=== PATIENT | female | born 1960 | race Caucasian/White ===

== ENCOUNTER → 2018-03-10 11:48 | Outpatient (CLI) | payer OTHER, SELFPAY | PROVIDERS: Family Provider Family Medicine; PCP Family Medicine; Visit Provider Family Medicine | DX: Z01.419 Encounter for gynecological examination (general) (routine) without abnormal findings (principal) ==

== ENCOUNTER → 2018-03-11 09:08 | Outpatient (CLI) | payer OTHER, SELFPAY ==
[2018-03-11 11:43] LABS: Anion Gap 10 (5-15); BUN 18 mg/dL (7-18); BUN/Creat Ratio 18.5 RATIO (10-20); Calcium,Total 9.6 mg/dL (8.5-10.1); Chloride 109 mmol/L (98-107); Cholesterol 182 mg/dL (200); Creatinine, Serum 0.97 mg/dL (0.55-1.02); EST Glomerular Filtration Rate 62 mL/min (>60); Est Glom Filt Rate - Afr Amer 75 mL/min (>60); Glucose 92 mg/dL (74-106); High Density Lipoprotein 74 mg/dL; Potassium 4.4 mmol/L (3.5-5.1); Sodium Level 143 mmol/L (136-145); Triglycerides 85 mg/dL; Very Low Density Lipoprotein 17 mg/dL (5-40)
[2018-03-16 11:26] LABS: HPV Reflexed? NOT INDICATED
== END ==
PROVIDERS: Family Provider Family Medicine; PCP Family Medicine; Visit Provider Family Medicine
DX: I10 Essential (primary) hypertension (principal); E78.00 Pure hypercholesterolemia, unspecified; Z12.4 Encounter for screening for malignant neoplasm of cervix
CPT/HCPCS: 36415; 80048; 80061; 88175; G0145

== ENCOUNTER → 2018-03-31 08:28 | Outpatient (CLI) | payer OTHER, SELFPAY | PROVIDERS: Family Provider Family Medicine; PCP Family Medicine; Visit Provider Family Medicine | DX: Z12.31 Encounter for screening mammogram for malignant neoplasm of breast (principal) | CPT/HCPCS: 77063; 77067 ==

== ENCOUNTER → 2019-03-13 07:07 | Outpatient (CLI) | payer OTHER, SELFPAY ==
[2019-03-13 11:27] LABS: Anion Gap 7 (5-15); BUN 20 mg/dL (7-18); BUN/Creat Ratio 23.7 RATIO (10-20); Calcium,Total 9.4 mg/dL (8.5-10.1); Chloride 110 mmol/L (98-107); Cholesterol 175 mg/dL (200); Creatinine, Serum 0.84 mg/dL (0.55-1.02); EST Glomerular Filtration Rate 73 mL/min (>60); Est Glom Filt Rate - Afr Amer 88 mL/min (>60); Glucose 82 mg/dL (74-106); High Density Lipoprotein 69 mg/dL; Potassium 4.1 mmol/L (3.5-5.1); Sodium Level 141 mmol/L (136-145); Triglycerides 93 mg/dL; Very Low Density Lipoprotein 19 mg/dL (5-40)
== END ==
PROVIDERS: Family Provider Family Medicine; PCP Family Medicine; Referring Provider Family Medicine; Visit Provider Family Medicine
DX: I10 Essential (primary) hypertension (principal); E78.00 Pure hypercholesterolemia, unspecified
CPT/HCPCS: 36415; 80048; 80061

== ENCOUNTER → 2019-05-18 06:44 | Outpatient (CLI) | payer OTHER, SELFPAY ==
[2019-05-04 14:20] VITALS: BMI 28.4
--- NOTE | 2019-05-18 09:50 | STRESSREP_ITS ---
Stress Test Report Date: 05-18-19 Procedure: Exercise tolerance test/imaging study Indications: Chest pain: Abnormal cardiac CT/coronary calcium score Consent: Per the patient Procedure: The patient exercised on a Real protocol for 10 minutes completing Stage III and 1 minute of Stage IV achieving a peak heart rate of 176 bpm (110 % predicted maximal heart rate) with a peak blood pressure 164/86 mmHg and a peak MET capacity of 11 METs. The baseline ECG demonstrated normal sinus rhythm. The peak exercise ECG demonstrated no obvious ECG changes. There was an isolated ventricular couplet during exercise. The functional capacity was considered. There was no complaint of chest discomfort during exercise or recovery. The examination was discontinued secondary to shortness of breath. Impression: 1. Technically adequate (percent predicted maximal heart rate greater than 85%) exercise tolerance test 2. Peak exercise ECG with no obvious ECG changes 3. There was an isolated ventricular couplet during exercise 4. Nuclear images pending Myocardial perfusion imaging study: Technique: The patient was injected with 12.0 mCi of technetium 99m Cardiolite and subsequently rest SPECT Cardiolite nuclear imaging was obtained in the horizontal long, vertical long, and short axis views. The patient exercised on a Real protocol for 10 minutes completing Stage III and 1 minute of Stage IV achieving a peak heart rate of 176 bpm (110 % predicted maximal heart rate) with a peak blood pressure 164/86 mmHg and a peak MET capacity of 11 METs. The patient was injected with 36.0 mCi of technetium 99m Cardiolite and subsequently stress SPECT Cardiolite nuclear imaging was obtained in the horizontal long, vertical long, and short axis views. A gated Cardiolite study at peak stress was obtained. Interpretation: Rest and stress SPECT Cardiolite nuclear imaging status post realignment, normalization, and attenuation correction, demonstrates rest the appearance of diminished tracer uptake in portions of the distal anterior and anterior apical segments which status post stress appears to normalize.. There is end systolic thickening and brightening. The gated Cardiolite study demonstrates myocardial thickening and inward wall motion. The reported LVEF is 74 %. Impression: 1. Rest and stress SPECT Cardiolite nuclear imaging demonstrate resting myocardial perfusion changes which appear to normalize status post stress appearing compatible shifting soft tissue attenuation/artifact with no myocardial perfusion changes considered diagnostic for associated stress-induced myocardial ischemia. 2. The gated Cardiolite study reports an LVEF of 74 %. This note was generated with [employer] software. It may contain incorrect words, spelling, and punctuation that were not noted in checking the note before signing.
== END ==
PROVIDERS: Family Provider Family Medicine; PCP Family Medicine; Referring Provider Internal Medicine Cardiovascular Disease; Visit Provider Internal Medicine Cardiovascular Disease
DX: R07.9 Chest pain, unspecified (principal); R93.1 Abnormal findings on diagnostic imaging of heart and coronary circulation
CPT/HCPCS: 78452; 93017; A9500; A4216

== ENCOUNTER → 2019-07-11 07:06 | Outpatient (CLI) | payer OTHER, SELFPAY ==
[2019-05-04 14:20] VITALS: BMI 28.4
[2019-07-11 10:06] LABS: Color, Urine Yellow (Yellow); Glucose, Dipstick Normal (Normal); Ketone-Dipstick Negative (Negative); Leukocyte Esterase-Dipstick 25 /ul (Negative); Nitrite-Dipstick Negative (Negative); Occult Blood-Urine Negative /ul (Negative); Protein-Dipstick Negative (Negative); Specific Gravity, Urine 1.025 (1.002-1.030); Urine Bilirubin Dipstick Negative (Negative); Urine Clarity Clear (Clear); Urine Urobilinogen Normal (Normal)
[2019-07-11 10:17] LABS: Absolute Lymphocyte Count 1.85 X10^3/uL (0.83-4.51); Absolute Neutrophil Count 4.2 X10^3/uL (2.0-7.7); Basophil# 0.03 X10^3/uL; Basophil% 0.4 % (0-1); Eosinophil# 0.19 X10^3/uL; Eosinophils% 2.8 % (0-5); Hematocrit 36.3 % (37-47); Hemoglobin 12.6 g/dL (12.0-15.0); Lymphocyte # 1.85 X10^3/ul (4.0); Lymphocyte % 27.2 % (19-41); Mean Corp Hgb Conc 34.7 g/dL (32-36); Mean Corpuscular Hgb 31.3 pg (27.0-32.0); Mean Corpuscular Volume 90.1 fL (81-99); Mean Platelet Vol. 10.3 fl (6.2-12.0); Monocyte# 0.48 X10^3/uL; NRBC Flagged by Analyzer 0 % (0-5); Neutrophil # 4.24 X10^3/uL (2.7-7.7); Neutrophil % 62.3 % (47-70); Platelet Count 315 K/mm3 (150-450); RBC Distribution Width CV 12.3 % (11.6-14.6); RBC Distribution Width SD 40.1 fl (35.1-43.9); Red Blood Count 4.03 M/mm3 (4.2-5.4); White Blood Count 6.8 K/mm3 (4.4-11.0)
[2019-07-11 10:27] LABS: Red Blood Cells-Urine 0-5 SEEN /hpf (0-5); Squamous Epithelial Cells - UA 0-5 SEEN /hpf (5-10); White Blood Cells 0-5 SEEN /hpf (0-5)
[2019-07-11 10:28] LABS: Bacteria RARE /hpf (None Seen); Mucous, Urine 1+ /hpf (<or=2+)
[2019-07-11 10:52] LABS: AST(SGOT) 20 U/L (15-37); Alanine Aminotransfer ALT/SGPT 26 U/L (13-56); Albumin, Serum 3.7 g/dL (3.2-5.0); Alkaline Phosphatase 74 U/L (45-117); Anion Gap 5 (5-15); BUN 17 mg/dL (7-18); BUN/Creat Ratio 18.3 RATIO (10-20); Calcium,Total 9.2 mg/dL (8.5-10.1); Chloride 111 mmol/L (98-107); Cholesterol 163 mg/dL (200); Creatinine, Serum 0.93 mg/dL (0.55-1.02); EST Glomerular Filtration Rate 65 mL/min (>60); Est Glom Filt Rate - Afr Amer 79 mL/min (>60); Globulin 3.6 g/dL (2.2-4.2); Glucose 85 mg/dL (74-106); High Density Lipoprotein 63 mg/dL; Potassium 3.9 mmol/L (3.5-5.1); Protein, Total 7.3 g/dL (6.4-8.2); Sodium Level 142 mmol/L (136-145); Thyroid Stim Hormone (TSH) 2.27 uIU/mL (0.358-3.74); Triglycerides 122 mg/dL; Very Low Density Lipoprotein 24 mg/dL (5-40)
== END ==
PROVIDERS: Family Provider Family Medicine; PCP Family Medicine; Referring Provider Family Medicine; Visit Provider Family Medicine
DX: Z00.00 Encounter for general adult medical examination without abnormal findings (principal)
CPT/HCPCS: 36415; 80053; 80061; 81001; 84443; 85025

== ENCOUNTER → 2019-07-18 14:52 | Outpatient (CLI) | payer OTHER, SELFPAY ==
[2019-05-04 14:20] VITALS: BMI 28.4
--- NOTE | 2019-07-18 14:54 | US_ITS ---
STUDY: THYROID ULTRASOUND REASON FOR EXAM: Female, 59 years old. Possible right thyroid nodule TECHNIQUE: Ultrasound evaluation of the thyroid was performed with real-time and static esquivel-scale imaging. COMPARISON: None. FINDINGS: RIGHT LOBE: The right lobe of the thyroid gland measures 5 x 2.2 x 1.2 cm. There is a heterogeneous echotexture. Multiple tiny complex nodules with irregular margins and shilpa nodular vascularity the largest measuring 3 x 2 x 2 mm. LEFT LOBE: Not visualized status post lobectomy ISTHMUS: The isthmus measures 1 mm . There is a mildly enlarged right. Thyroidal lymph node measuring 1.1 x 0.7 cm and 2 mildly enlarged lymph nodes on the left measuring 1.4 x 2.6 x 0.3 cm and 1.2 x 0.9 x 0.3 cm US/Thyroid IMPRESSION: Status post left thyroidectomy. Enlarged right lobe of thyroid demonstrating multiple tiny subcentimeter nodules the largest measuring 3 x 2 x 2 mm of uncertain significance. Incidental finding of mild bilateral perithyroidal adenopathy of indeterminate significance however if patient has history of prior thyroid cancer sonographic guided biopsy or PET scan may be helpful for further evaluation Electronically Signed: Nilo Walsh MD at 20:31 EST , Service support ,
== END ==
PROVIDERS: Family Provider Family Medicine; PCP Family Medicine; Referring Provider Family Medicine; Visit Provider Family Medicine
DX: E04.1 Nontoxic single thyroid nodule (principal)
CPT/HCPCS: 76536

== ENCOUNTER → 2019-07-26 15:28 | Outpatient (CLI) | payer OTHER, SELFPAY ==
[2019-05-04 14:20] VITALS: BMI 28.4
--- NOTE | 2019-07-26 15:30 | BI_ITS ---
MAMMOGRAPHY - BILATERAL SCREENING REASON FOR EXAM: Female, 59 years old. Routine annual screening examination. PERTINENT HISTORY: Non-contributory. TECHNIQUE: Digital bilateral breast bc (3D mammographic acquisition) in the CC and MLO projections. 2-D mediolateral oblique (MLO) and craniocaudad (CC) views of both breasts were obtained. CAD: Full Field Digital Mammography with Computer Added Detection was performed. COMPARISON: Comparison is made with prior study dated March 31, 2018 and March 30, 2016. FINDINGS: Breast Composition: There are scattered areas of fibroglandular density. There are no dominant masses or suspicious calcifications. Stable benign-appearing bilateral axillary lymph nodes. No other significant abnormalities are identified. There has been no significant change since the prior study. BI/SCREEN MAMM (CAD) W/BC BILAT IMPRESSION: Stable bilateral screening mammogram. Yearly follow-up mammogram recommended. (A) ASSESSMENT CATEGORY: BIRADS Category 2: Benign. A letter regarding these results will be sent to the patient by the facility within 30 days. Approximately 10% of breast cancers are not detected by mammography. A normal mammogram should not delay biopsy of a clinically suspicious abnormality. [id number] Electronically Signed: Pool Crandall, at 8:41 EST , Service support ,
== END ==
PROVIDERS: Family Provider Family Medicine; PCP Family Medicine; Referring Provider Family Medicine; Visit Provider Family Medicine
DX: Z12.31 Encounter for screening mammogram for malignant neoplasm of breast (principal)
CPT/HCPCS: 77063; 77067

== ENCOUNTER → 2020-02-09 07:10 | Outpatient (CLI) | payer OTHER, SELFPAY ==
[2019-09-29 08:35] VITALS: BMI 28.4
[2020-02-09 09:52] LABS: Absolute Lymphocyte Count 2.15 X10^3/uL (0.83-4.51); Absolute Neutrophil Count 3.9 X10^3/uL (2.0-7.7); Basophil# 0.04 X10^3/uL; Basophil% 0.6 % (0-1); Eosinophil# 0.15 X10^3/uL; Eosinophils% 2.2 % (0-5); Hematocrit 39.3 % (37-47); Hemoglobin 12.8 g/dL (12.0-15.0); Lymphocyte # 2.15 X10^3/ul (4.0); Lymphocyte % 31.9 % (19-41); Mean Corp Hgb Conc 32.6 g/dL (32-36); Mean Corpuscular Hgb 29.9 pg (27.0-32.0); Mean Corpuscular Volume 91.8 fL (81-99); Mean Platelet Vol. 10.4 fl (6.2-12.0); Monocyte# 0.46 X10^3/uL; Monocyte% 6.8 % (0-10); NRBC Flagged by Analyzer 0 % (0-5); Neutrophil % 57.9 % (47-70); Platelet Count 331 K/mm3 (150-450); RBC Distribution Width CV 12.5 % (11.6-14.6); RBC Distribution Width SD 41.4 fl (35.1-43.9); Red Blood Count 4.28 M/mm3 (4.2-5.4); White Blood Count 6.7 K/mm3 (4.4-11.0)
[2020-02-09 10:14] LABS: ALB/GLOB Ratio 0.9 RATIO (0.9-2.4); AST(SGOT) 22 U/L (15-37); Alanine Aminotransfer ALT/SGPT 27 U/L (13-56); Albumin, Serum 3.7 g/dL (3.2-5.0); Alkaline Phosphatase 76 U/L (45-117); Anion Gap 6 (5-15); BUN 15 mg/dL (7-18); BUN/Creat Ratio 16.3 RATIO (10-20); Calcium,Total 9.1 mg/dL (8.5-10.1); Chloride 109 mmol/L (98-107); Cholesterol 178 mg/dL (200); Creatinine, Serum 0.92 mg/dL (0.55-1.02); EST Glomerular Filtration Rate 66 mL/min (>60); Est Glom Filt Rate - Afr Amer 79 mL/min (>60); Globulin 3.9 g/dL (2.2-4.2); Glucose 90 mg/dL (74-106); High Density Lipoprotein 70 mg/dL; Potassium 4.2 mmol/L (3.5-5.1); Protein, Total 7.6 g/dL (6.4-8.2); Sodium Level 141 mmol/L (136-145); Thyroid Stim Hormone (TSH) 3.59 uIU/mL (0.358-3.74); Triglycerides 86 mg/dL; Very Low Density Lipoprotein 17 mg/dL (5-40)
== END ==
PROVIDERS: PCP Family Medicine; Referring Provider Family Medicine; Visit Provider Family Medicine
DX: I10 Essential (primary) hypertension (principal); E78.00 Pure hypercholesterolemia, unspecified
CPT/HCPCS: 36415; 80053; 80061; 84443; 85025

== ENCOUNTER → 2020-08-27 08:29 | Outpatient (CLI) | payer OTHER, SELFPAY ==
[2020-05-06 09:17] VITALS: BMI 27.2
[2020-08-27 10:12] LABS: Absolute Lymphocyte Count 1.68 X10^3/uL (0.83-4.51); Basophil# 0.03 X10^3/uL; Basophil% 0.5 % (0-1); Eosinophils% 1.6 % (0-5); Hematocrit 38.6 % (37-47); Hemoglobin 12.8 g/dL (12.0-15.0); Lymphocyte # 1.68 X10^3/ul (4.0); Lymphocyte % 27.3 % (19-41); Mean Corp Hgb Conc 33.2 g/dL (32-36); Mean Corpuscular Hgb 29.8 pg (27.0-32.0); Mean Corpuscular Volume 89.8 fL (81-99); Mean Platelet Vol. 10.5 fl (6.2-12.0); Monocyte# 0.38 X10^3/uL; Monocyte% 6.2 % (0-10); NRBC Flagged by Analyzer 0 % (0-5); Neutrophil # 3.96 X10^3/uL (2.7-7.7); Neutrophil % 64.2 % (47-70); Platelet Count 333 K/mm3 (150-450); RBC Distribution Width CV 12.5 % (11.6-14.6); RBC Distribution Width SD 40.8 fl (35.1-43.9); White Blood Count 6.2 K/mm3 (4.4-11.0)
[2020-08-27 10:50] LABS: AST(SGOT) 18 U/L (15-37); Alanine Aminotransfer ALT/SGPT 26 U/L (13-56); Albumin, Serum 3.8 g/dL (3.2-5.0); Alkaline Phosphatase 81 U/L (45-117); Anion Gap 7 (5-15); BUN 17 mg/dL (7-18); BUN/Creat Ratio 17.6 RATIO (10-20); Calcium,Total 9.2 mg/dL (8.5-10.1); Chloride 109 mmol/L (98-107); Cholesterol 174 mg/dL (200); Creatinine, Serum 0.96 mg/dL (0.55-1.02); EST Glomerular Filtration Rate 62 mL/min (>60); Est Glom Filt Rate - Afr Amer 75 mL/min (>60); Globulin 3.7 g/dL (2.2-4.2); Glucose 90 mg/dL (74-106); High Density Lipoprotein 74 mg/dL; Potassium 4.3 mmol/L (3.5-5.1); Protein, Total 7.5 g/dL (6.4-8.2); Sodium Level 140 mmol/L (136-145); Thyroid Stim Hormone (TSH) 1.87 uIU/mL (0.358-3.74); Triglycerides 89 mg/dL; Very Low Density Lipoprotein 18 mg/dL (5-40)
== END ==
PROVIDERS: PCP Family Medicine; Referring Provider Family Medicine; Visit Provider Family Medicine
DX: I10 Essential (primary) hypertension (principal); E78.00 Pure hypercholesterolemia, unspecified
CPT/HCPCS: 36415; 80053; 80061; 84443; 85025

== ENCOUNTER → 2020-09-03 11:18 | Outpatient (CLI) | payer OTHER, SELFPAY ==
[2020-05-06 09:17] VITALS: BMI 27.2
--- NOTE | 2020-09-03 11:22 | US_ITS ---
STUDY: THYROID ULTRASOUND REASON FOR EXAM: Female, 60 years old. Nodule. History of left thyroidectomy. TECHNIQUE: Ultrasound evaluation of the thyroid was performed with real-time and static esquivel-scale imaging. COMPARISON: 07/18/2019. FINDINGS: RIGHT LOBE: The right lobe of the thyroid gland measures 4.9 x 1.8 x 1.4 cm. There is a homogeneous echotexture. There is a 0.5 x 0.5 x 0.3 cm cyst in the anterior mid thyroid. More posteriorly in the lower pole there is a 0.3 x 0.2 x 0.4 cm cyst. Also posteriorly of the lower pole but more lateral there is a 0.4 x 0.3 x 0.4 cm cyst. Normal vascularity on DOPPLER imaging. LEFT LOBE: The left lobe of the thyroid gland is surgically absent. ISTHMUS: The isthmus measures 0.2 . The regional lymph nodes are normal. US/Thyroid IMPRESSION: 1. Full colloid cysts seen in the right thyroid. These are benign findings and require no follow-up. 2. Status post left thyroidectomy. Electronically Signed: Rakesh Mclaughlin DO at 20:46 EST Tel [phone], Service support ,
== END ==
PROVIDERS: PCP Family Medicine; Referring Provider Family Medicine; Visit Provider Family Medicine
DX: E04.2 Nontoxic multinodular goiter (principal)
CPT/HCPCS: 76536

== ENCOUNTER 2020-10-10 16:38 | Outpatient (RCR) | payer OTHER, SELFPAY ==
[2020-05-06 09:17] VITALS: BMI 27.2
== END 2020-10-10 23:59 ==
LOC: IMMUN 16:38
PROVIDERS: PCP Family Medicine; Visit Provider Family Medicine
DX: Z23 Encounter for immunization (principal)
CPT/HCPCS: 0011A; 0012A

== ENCOUNTER → 2021-04-14 11:40 | Outpatient (CLI) | payer OTHER, SELFPAY ==
--- NOTE | 2021-04-14 11:42 | US_ITS ---
INDICATION: possible bakers cyst - LEFT EXAMINATION: Left Lower extremity duplex venous ultrasound. HISTORY: 58-year-old female with left knee pain on movement. TECHNIQUE: Routine and color duplex imaging with spectral analysis. FINDINGS: Grayscale and color flow evaluation of the left popliteal fossa was performed, no evidence of fluid collection is seen, no evidence of masses no evidence of subcutaneous or deep collections. Unremarkable architecture of the underlying muscles. US/Ext Non Vasc Limited/Soft Tiss IMPRESSION: No abnormality detected. Electronically Signed: David Bonds MD at 14:02 EDT Tel , Service support ,
== END ==
PROVIDERS: PCP Family Medicine; Referring Provider Family Medicine; Visit Provider Family Medicine
DX: M25.569 Pain in unspecified knee (principal)
CPT/HCPCS: 76882

== ENCOUNTER → 2021-05-28 13:41 | Outpatient (CLI) | payer OTHER, SELFPAY ==
--- NOTE | 2021-05-28 13:46 | BI_ITS ---
MAMMOGRAPHY - BILATERAL SCREENING REASON FOR EXAM: Female, 61 years old. Routine annual screening examination. PERTINENT HISTORY: Non-contributory. TECHNIQUE: Digital bilateral breast bc (3D mammographic acquisition) in the CC and MLO projections. 2-D mediolateral oblique (MLO) and craniocaudad (CC) views of both breasts were obtained. CAD: Full Field Digital Mammography with Computer Added Detection was performed. COMPARISON: Comparison is made with prior study dated 07/26/2019 and 03/31/2018. FINDINGS: Breast Composition: There are scattered areas of fibroglandular density. There are no dominant masses or suspicious calcifications. Stable small benign appearing bilateral axillary nodes. No other significant abnormalities are identified. There has been no significant change since the prior study. BI/SCRN MAMM (CAD)W/BC BILAT IMPRESSION: Stable bilateral screening mammogram. Yearly follow-up mammogram recommended. (A) ASSESSMENT CATEGORY: BIRADS Category 2: Benign. A letter regarding these results will be sent to the patient by the facility within 30 days. Approximately 10% of breast cancers are not detected by mammography. A normal mammogram should not delay biopsy of a clinically suspicious abnormality. [id number] Electronically Signed: Pool Crandall MD at 14:45 EDT , Service support ,
== END ==
PROVIDERS: PCP Family Medicine; Referring Provider Family Medicine; Visit Provider Family Medicine
DX: Z12.31 Encounter for screening mammogram for malignant neoplasm of breast (principal)
CPT/HCPCS: 77063; 77067

== ENCOUNTER 2021-10-30 07:00 | Day surgery (SDC) | payer OTHER, SELFPAY ==
[2021-10-30 07:25] VITALS: BP 124/81; PULSE 80; RESP 16; TEMP 36.3; O2SAT 97; BMI 27.0
[2021-10-30] MEDS: Lactated Ringers 1,000 ML 15 ML IV ×2 (07:31→09:45)
--- NOTE | 2021-10-30 08:15 | COLBX_PTH ---
PATIENT: DARLYN ESCOBAR LOC: EN U#:[id number] AGE/SX: 61/F ROOM: RE10/30/[address]: Dr. Sonido Tovar DO : 1960 BED: DIS: 10/30/2021 SPEC #: [id number] RECD: 10/30/21 14:18 STATUS: JESSICA REBetsy #: [id number] CONNOR: 10/30/21 08:[address]: Sonido Tovar DEPT: SURGICAL PATHOLOGY RECD BY: Effie Klein ENTERED: 10/31/21 09:35 SP TYPE: COLON BX ELAN DR: Dr. Alberto Garrett MD Tissues: A - Cecum, NOS B - COLON BIOPSY C - Sigmoid colon biopsy Procedures: Surgery Specimen Level IV HEADER OPERATION: Colonoscopy ? open access (MAC) PRE-OP DIAGNOSIS: Colon cancer screening TISSUE SUBMITTED: A - Cecal polyp, B - Hepatic flexure polyp biopsy, C - Sigmoid colon colitis biopsy MICROSCOPIC DIAGNOSIS A. Cecal polyp, biopsy: Fragments of tubular adenoma. B. Hepatic flexure polyp, biopsy: Fragments of tubular adenoma. C. Sigmoid colon, biopsy: Focal acute colitis. See microscopic description and comment. SJ:adin 11/03/2021 COMMENT C. Correlation with clinical, endoscopic findings and appropriate follow up are necessary. MICROSCOPIC DESCRIPTION Slides are reviewed. C. The specimen shows fragments of colonic mucosa with focal ulceration and acute and chronic inflammation. Cryptitis, crypt abscesses, glandular distortion and granulomas are not seen. GROSS DESCRIPTION A - Received in fixative is one container labeled with the patient's name and designated cecal polyp. The specimen consists of two irregular fragments of light martines soft tissue that in aggregate measure 0.6 x 0.6 x 0.1 cm. The specimen is totally submitted in one cassette. B - Received in fixative is one container labeled with the patient's name and designated hepatic flexure polyp. The specimen consists of two irregular fragments of light martines soft tissue that in aggregate measure 0.6 x 0.3 x 0.1 cm. The specimen is totally submitted in one cassette. C - Received in fixative is one container labeled with the patient's name and designated sigmoid colon colitis biopsy. The specimen consists of multiple irregular fragments of light martines soft tissue that in aggregate measure 1.5 x 0.5 x 0.1 cm. The specimen is totally submitted in one cassette. / AM:adin 10/31/2021 TC:1 CPT: 49970 x3
--- NOTE | 2021-10-30 09:03 | PCM.HP.BLA ---
History and Physical Date of Admission: 10/30/21 61 F who presents for a screening colonoscopy. She has no acute concerns. Had previously followed up at [facility] physicians. History of hypertension and family history significant for coronary artery disease in her father and mother. Has had a stress test with no concerns. Follows up with cardiology yearly. She states that she exercises routinely. Last colonoscopy was 7 years ago and a 7-year follow-up was recommended. Her prior colonoscopies done by Dr. Warner. Last Pap smear said to be 3 years ago as well, denies any known history of abnormal Pap smear. Recently had a mammogram with no concerns per patient. Denies tobacco or alcohol abuse. Has received 3 COVID vaccines but did not receive the flu vaccine this year. Has also not gotten the shingles vaccine. ROS Const Constitutional: No body ache, chills, excessive sweating, fatigue, fever(s), frequent falls, headache(s), snoring, weakness, weight change, sleep problems or change in appetite Eyes Eyes: No blurry vision, change in vision, eye pain or Light sensitivity ENT ENT: No abnormal hearing, ear or mastoid pain, tinnitus, nasal congestion, headache(s), neck pain or sore throat Resp Respiratory: No cough, shortness of breath, snoring or wheezing Cardio Cardiology: No chest pain at rest, chest pain with exertion, excessive sweating, shortness of breath, dyspnea on exertion, lightheadedness, orthopnea or palpitations Gastro GI: No abdominal pain, change in bowel habits, constipation, cramping, diarrhea, nausea/dyspepsia or vomiting Genitourinary-Female: No burning urination, painful urination, urinary incontinence, urinary frequency, abnormal vaginal bleeding or pelvic pain Musc Musculoskeletal: No abnormal gait, joint pain, back pain, limited range of motion, neck pain, numbness or tingling Skin Skin: No dry skin, redness, lesions, itchy eyes, rash or wounds Neuro Neurology: No abnormal gait, abnormal hearing, abnormal speech, dizziness, weakness, frequent falls, headache(s), memory loss, numbness or tingling Psych Psychiatric: No anxiety, No change in appetite, No depression, No memory loss and No Thoughts of harming yourself/Others Endo Endocrine: No cold intolerance, excessive sweating, fatigue, flushing, heat intolerance, increased thirst/drinking, increased hunger or weight change Aller/Imm Allergy/Immunologic: No itchy eyes, seasonal allergy symptoms, hives or wheezing Andrew/Lymp Hematologic/Lymphatic: No easy bleeding, easy bruising or enlarged lymph nodes Exam Const General: cooperative, comfortable and no acute distress Orientation: alert, awake and oriented x3 [facility] Head: normal to inspection, normocephalic and atraumatic Ears: hearing grossly normal bilaterally Neck Neck: normal visual inspection, full ROM, no lymphadenopathy and supple Neck mass: No Thyroid: thyroid normal Resp Effort & Inspection: normal respiratory effort and able to speak in complete sentences Auscultation: Bilateral: Clear to Auscultation Cardio Rate: regular rate Rhythm: regular rhythm Heart Sounds: S1 normal and S2 normal GI Palpation: soft (Nontender, no palpable organomegaly) Neuro General: patient alert, patient awake, patient oriented x3, moves all extremities and CN's II-XI intact bilaterally Extrem General: no clubbing, cyanosis or edema Psych Appearance: grossly normal Mental Status: mental status grossly normal Mood: congruent mood Affect: normal affect Assessment and Plan Assessment and Plan 61-year-old who needs to undergo screening colonoscopy. She was explained alternatives, risk, benefits including not withstanding bleeding, infection, sepsis, perforation, need for emergent surgery . She will have an ASA of 1. Assessment & Plan Assessment/Plan (1) Colon cancer screening:
[2021-10-30 09:53] VITALS: BP 124/81; BP 95/59; PULSE 80; RESP 16; TEMP 36.4; O2SAT 99
--- NOTE | 2021-10-30 09:55 | OP.COLON_ITS ---
Patient Name: Suzi Bradley Procedure Date: 10/30/2021 8:54 AM Date of : 1960 Age: 61 Procedure: Colonoscopy Indications: Screening for colorectal malignant neoplasm Providers: Sonido Tovar DO Medicines: See the Anesthesia note for documentation of the administered medications Patient Profile: This is a 61 year old female. Refer to note in patient chart for documentation of history and physical. Last Colonoscopy: 10 years ago. Complications: No immediate complications. Procedure: Pre-Anesthesia Assessment: - Prior to the procedure, a History and Physical was performed, and patient medications and allergies were reviewed. The risks and benefits of the procedure and the sedation options and risks were discussed with the patient. All questions were answered and informed consent was obtained. Patient identification and proposed procedure were verified by the physician in the pre-procedure area. Mental Status Examination: alert and oriented. Airway Examination: normal oropharyngeal airway and neck mobility. Respiratory Examination: clear to auscultation. Prophylactic Antibiotics: The patient does not require prophylactic antibiotics. Prior Anticoagulants: The patient has taken no previous anticoagulant or antiplatelet agents. ASA Grade Assessment: II - A patient with mild systemic disease. After reviewing the risks and benefits, the patient was deemed in satisfactory condition to undergo the procedure. The anesthesia plan was to use moderate sedation / analgesia (conscious sedation). Immediately prior to administration of medications, the patient was re-assessed for adequacy to receive sedatives. The heart rate, respiratory rate, oxygen saturations, blood pressure, adequacy of pulmonary ventilation, and response to care were monitored throughout the procedure. The physical status of the patient was re-assessed after the procedure. After I obtained informed consent, the scope was passed under direct vision. Throughout the procedure, the patient's blood pressure, pulse, and oxygen saturations were monitored continuously. The pediatric colonoscope was introduced through the anus and advanced to the cecum, identified by appendiceal orifice and ileocecal valve. The colonoscopy was performed without difficulty. The patient tolerated the procedure well. The quality of the bowel preparation was good. Moderate Sedation: Moderate (conscious) sedation was administered by the endoscopy nurse and supervised by the endoscopist. The patient's oxygen saturation, heart rate, blood pressure and response to care were monitored. Total physician intraservice time was 14 minutes. Scope In: 9:11:26 AM Scope Withdrawal Time 0 hours 21 minutes 39 seconds Scope Out: 9:44:39 AM Total Procedure Duration Time 0 hours 33 minutes 13 seconds Findings: The perianal and digital rectal examinations were normal. Three small-mouthed diverticula were found in the sigmoid colon. A benign-appearing, intrinsic severe stenosis measuring 3 cm (in length) x 2 mm (inner diameter) was found in the sigmoid colon and was traversed. Biopsies were taken with a cold forceps for histology. Verification of patient identification for the specimen was done. Estimated blood loss was minimal. Localized severe inflammation characterized by congestion (edema), erythema, friability and confluent ulcerations was found in the sigmoid colon. Biopsies were taken with a cold forceps for histology. Verification of patient identification for the specimen was done. Estimated blood loss was minimal. Three sessile polyps were found in the hepatic flexure and cecum. The polyps were 1 to 2 mm in size. These polyps were removed with a hot snare. Resection and retrieval were complete. Verification of patient identification for the specimen was done. Estimated blood loss was minimal. Impression: - Diverticulosis in the sigmoid colon. - Stricture in the sigmoid colon. Biopsied. - Localized severe inflammation was found in the sigmoid colon secondary to ischemic colitis. Biopsied. - Three 1 to 2 mm polyps at the hepatic flexure and in the cecum, removed with a hot snare. Resected and retrieved. Recommendation: - Repeat colonoscopy in 3 years for surveillance. - Continue present medications. Procedure Code(s): --- Professional --- 97464, Colonoscopy, flexible; with removal of tumor(s), polyp(s), or other lesion(s) by snare technique 03072, 59, Colonoscopy, flexible; with biopsy, single or multiple 71447, 59, Moderate sedation services provided by the same physician or other qualified health pediatric acute care unit nurse performing the diagnostic or therapeutic service that the sedation supports, requiring the presence of an independent trained observer to assist in the monitoring of the patient's level of consciousness and physiological status; initial 15 minutes of intraservice time, patient age 5 years or older CPT copyright 2017 [employer]. All rights reserved. The codes documented in this report are preliminary and upon ui software developer review may be revised to meet current compliance requirements. Sonido Tovar DO 10/30/2021 9:55:01 AM This report has been signed electronically. Number of Addenda: 1 Note Initiated On: 10/30/2021 8:54 AM Addendum Number: 1 Addendum Date: 05/13/2022 6:25:32 AM MAC was used as sedation for this procedure. Sonido Tovar DO 05/13/2022 6:25:37 AM This report has been signed electronically.
--- NOTE | 2021-10-30 09:56 | OP.CCLET_ITS ---
05/13/2022 Alberto Garrett MD [address] [place] [address] [place] [address] Re : Colonoscopy procedure for Suzi Bradley Dear Dr. Garrett This procedure was performed on October. My impressions and recommendations are as follows: Impressions : - Diverticulosis in the sigmoid colon. - Stricture in the sigmoid colon. Biopsied. - Localized severe inflammation was found in the sigmoid colon secondary to ischemic colitis. Biopsied. - Three 1 to 2 mm polyps at the hepatic flexure and in the cecum, removed with a hot snare. Resected and retrieved. Recommendations : - Repeat colonoscopy in 3 years for surveillance. - Continue present medications. My findings are described in the full procedure note, which is enclosed. If I can be of further assistance, please feel free to contact me at . Sincerely, Sonido Tovar, 10/30/2021 9:55:01 AM This report has been signed electronically.
[2021-10-30 10:00] VITALS: BP 124/81; BP 126/66; PULSE 74; RESP 16; O2SAT 100
--- NOTE | 2021-10-30 10:00 | SUR.PHASEI ---
MECHANICAL ISSUES WITH BP MONITOR IN PACU. PATIENT VSS. ALERT AND ORIENTED. SEE VITAL SIGNS IN PHASE 1. WILL CONT TO MONITOR.
[2021-10-30 10:05] VITALS: BP 120/67; BP 124/81; PULSE 67; RESP 16; O2SAT 100
[2021-10-30 10:08] VITALS: BP 124/81; BP 144/76; PULSE 68; RESP 16; TEMP 36.1; O2SAT 100
[2021-10-30 10:22] VITALS: BP 124/81
== END 2021-10-30 23:59 | disposition home or self-care (01) ==
LOC: EN 07:01 → AC 07:04
PROVIDERS: PCP Internal Medicine; Referring Provider Internal Medicine; Visit Provider Internal Medicine Gastroenterology
PROC: 0DJD8ZZ Inspection of Lower Intestinal Tract, Via Natural or Artificial Opening Endoscopic (ICD-10-PCS; CPT 45378; principal; 2021-10-30 08:10)
DX: Z12.11 Encounter for screening for malignant neoplasm of colon (principal); K56.699 Other intestinal obstruction unspecified as to partial versus complete obstruction; D12.3 Benign neoplasm of transverse colon; D12.0 Benign neoplasm of cecum; K52.9 Noninfective gastroenteritis and colitis, unspecified; K57.30 Diverticulosis of large intestine without perforation or abscess without bleeding; I10 Essential (primary) hypertension; E78.00 Pure hypercholesterolemia, unspecified; Z79.899 Other long term (current) drug therapy
CPT/HCPCS: 45380; 45385; 88305; J7120; J2405

== ENCOUNTER → 2021-12-25 | Outpatient (CLI) | payer OTHER, SELFPAY | END | disposition home or self-care (01) | PROVIDERS: PCP Internal Medicine; Visit Provider Nurse Practitioner Women's Health | DX: Z12.4 Encounter for screening for malignant neoplasm of cervix (principal) | CPT/HCPCS: 87624; 88175; G0145 ==

== ENCOUNTER → 2022-02-26 | Outpatient (CLI) | payer OTHER, SELFPAY ==
[2022-02-26 15:06] LABS: Anion Gap 3 (5-15); BUN 18 mg/dL (7-18); BUN/Creat Ratio 20.1 RATIO (10-20); Calcium,Total 9.3 mg/dL (8.5-10.1); Chloride 110 mmol/L (98-107); EST Glomerular Filtration Rate 67 mL/min (>60); Est Glom Filt Rate - Afr Amer 82 mL/min (>60); Glucose 100 mg/dL (74-106); Potassium 4.3 mmol/L (3.5-5.1); Sodium Level 141 mmol/L (136-145)
== END | disposition home or self-care (01) ==
LOC: BIMLAB 13:16
PROVIDERS: PCP Internal Medicine; Referring Provider Internal Medicine; Visit Provider Internal Medicine
DX: I10 Essential (primary) hypertension (principal)
CPT/HCPCS: 36415; 80048

== ENCOUNTER → 2022-07-16 | Outpatient (CLI) | payer OTHER, SELFPAY ==
--- NOTE | 2022-07-16 08:34 | BI_ITS ---
MAMMOGRAPHY - BILATERAL SCREENING REASON FOR EXAM: Female, 62 years old. Routine annual screening examination. PERTINENT HISTORY: Non-contributory. TECHNIQUE: Digital bilateral breast bc (3D mammographic acquisition) in the CC and MLO projections. 2-D mediolateral oblique (MLO) and craniocaudad (CC) views of both breasts were obtained. CAD: Full Field Digital Mammography with Computer Added Detection was performed. COMPARISON: Comparison is made with prior study 05/28/2021 and 07/26/2019. FINDINGS: Breast Composition: There are scattered areas of fibroglandular density. There are no dominant masses or suspicious calcifications. Stable small benign-appearing axillary lymph nodes. No other significant abnormalities are identified. There has been no significant change since the prior study. BI/SCRN MAMM (CAD)W/BC BILAT IMPRESSION: Stable bilateral screening mammogram. Yearly follow-up mammogram recommended. (A) ASSESSMENT CATEGORY: BIRADS Category 2: Benign. A letter regarding these results will be sent to the patient by the facility within 30 days. Approximately 10% of breast cancers are not detected by mammography. A normal mammogram should not delay biopsy of a clinically suspicious abnormality. [id number] Electronically Signed: Pool Crandall MD at 9:52 EST ,
== END | disposition home or self-care (01) ==
LOC: OPBI 08:32
PROVIDERS: PCP Internal Medicine; Visit Provider Nurse Practitioner Women's Health
DX: Z12.31 Encounter for screening mammogram for malignant neoplasm of breast (principal)
CPT/HCPCS: 77063; 77067; 87624; 88175; G0145

== ENCOUNTER → 2023-07-19 | Outpatient (CLI) | payer MEDICARE, OTHER, SELFPAY ==
[2023-07-19 12:29] LABS: Absolute Lymphocyte Count 1.44 X10^3/uL (0.83-4.51); Absolute Neutrophil Count 4.4 X10^3/uL (2.0-7.7); Basophil# 0.04 X10^3/uL; Basophil% 0.6 % (0-1); Eosinophil# 0.07 X10^3/uL; Eosinophils% 1.1 % (0-5); Hematocrit 37.9 % (37-47); Hemoglobin 12.1 g/dL (12.0-15.0); Lymphocyte # 1.44 X10^3/ul (0.83-4.51); Lymphocyte % 22.9 % (19-41); Mean Corp Hgb Conc 31.9 g/dL (32-36); Mean Corpuscular Hgb 29.4 pg (27.0-32.0); Mean Corpuscular Volume 92.2 fL (81-99); Mean Platelet Vol. 10.4 fl (6.2-12.0); Monocyte# 0.36 X10^3/uL; Monocyte% 5.7 % (0-10); NRBC Flagged by Analyzer 0 % (0-5); Neutrophil # 4.35 X10^3/uL (2.7-7.7); Neutrophil % 69.4 % (47-70); Platelet Count 306 K/mm3 (150-450); RBC Distribution Width CV 12.5 % (11.6-14.6); RBC Distribution Width SD 42.6 fl (35.1-43.9); Red Blood Count 4.11 M/mm3 (4.2-5.4); White Blood Count 6.3 K/mm3 (4.4-11.0)
[2023-07-19 13:55] LABS: ALB/GLOB Ratio 0.9 RATIO (0.9-2.4); AST(SGOT) 30 U/L (15-37); Alanine Aminotransfer ALT/SGPT 37 U/L (13-56); Albumin, Serum 3.6 g/dL (3.2-5.0); Alkaline Phosphatase 72 U/L (45-117); Anion Gap 5 (5-15); BUN 16 mg/dL (7-18); BUN/Creat Ratio 17.8 RATIO (10-20); Calcium,Total 9.4 mg/dL (8.5-10.1); Chloride 110 mmol/L (98-107); Cholesterol 177 mg/dL (200); EST Glomerular Filtration Rate 67 mL/min (>60); Est Glom Filt Rate - Afr Amer 81 mL/min (>60); Globulin 3.8 g/dL (2.2-4.2); Glucose 92 mg/dL (74-106); High Density Lipoprotein 84 mg/dL; Protein, Total 7.4 g/dL (6.4-8.2); Sodium Level 140 mmol/L (136-145); Triglycerides 99 mg/dL; Very Low Density Lipoprotein 20 mg/dL (5-40)
== END | disposition home or self-care (01) ==
LOC: BIMLAB 10:25
PROVIDERS: PCP Internal Medicine; Referring Provider Internal Medicine; Visit Provider Internal Medicine
DX: E78.00 Pure hypercholesterolemia, unspecified (principal)
CPT/HCPCS: 36415; 80053; 80061; 85025

== ENCOUNTER → 2023-08-26 | Outpatient (CLI) | payer MEDICARE, OTHER, SELFPAY ==
--- NOTE | 2023-08-26 11:58 | BI_ITS ---
MAMMOGRAPHY - BILATERAL SCREENING REASON FOR EXAM: Female, 63 years old. Routine annual screening examination. PERTINENT HISTORY: Non-contributory. TECHNIQUE: Digital bilateral breast bc (3D mammographic acquisition) in the CC and MLO projections. 2-D mediolateral oblique (MLO) and craniocaudad (CC) views of both breasts were obtained. CAD: Full Field Digital Mammography with Computer Added Detection was performed. COMPARISON: Comparison is made with prior study dated July 16, 2022 and May 28, 2021. FINDINGS: Breast Composition: There are scattered areas of fibroglandular density. There are no dominant masses or suspicious calcifications. No other significant abnormalities are identified. There has been no significant change since the prior study. BI/SCRN MAMM (CAD)W/BC BILAT IMPRESSION: Stable bilateral screening mammogram. Yearly follow-up mammogram recommended. (A) ASSESSMENT CATEGORY: BIRADS Category 1: Negative. A letter regarding these results will be sent to the patient by the facility within 30 days. Approximately 10% of breast cancers are not detected by mammography. A normal mammogram should not delay biopsy of a clinically suspicious abnormality. [id number] Electronically Signed: Pool Crandall MD at 13:10 EST ,
--- NOTE | 2023-08-26 12:25 | BD_ITS ---
STUDY: DUAL ENERGY X-RAY ABSORPTIOMETRY / DXA REASON FOR EXAM: Female, 63 years old. Post menopausal TECHNIQUE: Bone Mineral Density (BMD) measurements of lumbar spine and bilateral hips were obtained. COMPARISON: None. FINDINGS: Lumbar Spine (L1-L4): g/cm2 (1.063) / T-score (0.1) / Z-score (1.9) Findings are suggestive of normal bone density with a low fracture risk. Left Femur Total: g/cm2 (0.967) / T-score (0.2) / Z-score (1.4) Left Femoral Neck: g/cm2 (0.885) / T-score (0.3) / Z-score (1.8) Right Femur Total: g/cm2 (0.911) / T-score (-0.3) / Z-score (1.0) Right Femoral Neck: g/cm2 (0.825) / T-score (-0.2) / Z-score (1.3) BD/Dexa Bone Density Study IMPRESSION: The patient is considered normal as outlined below according to World Devan Organization (WHO) criteria with a low fracture risk. Reference Information: The T-score is the number of standard deviations above or below the standard which is normal for young adults at their peak bone mineral density. The World Health Organization (WHO) interprets the T-scores as follows: Above -1 Normal bone density Between -1 and -2.5 Osteopenia Equal to / or below -2.5 Osteoporosis As a practical clinical guideline, osteopenia may be graded as follows: Mild -1 through -1.5 Moderate -1.6 through -2.0 Severe -2.1 through -2.4 The Z-score is the number of standard deviations above or below age-matched controls. A Z-score of less than -1.5 would be considered abnormal. References: 1. NIH Osteoporosis and Related Bone Diseases www osteo.org 2. International Society for Clinical Densitometry www iscd.org 3. National Osteoporosis Foundation www nof.org Electronically Signed: Pool Crandall MD at 15:40 EST ,
== END | disposition home or self-care (01) ==
LOC: OPBD 11:57
PROVIDERS: PCP Internal Medicine; Referring Provider Internal Medicine; Visit Provider Internal Medicine
DX: Z12.31 Encounter for screening mammogram for malignant neoplasm of breast (principal); Z78.0 Asymptomatic menopausal state
CPT/HCPCS: 77063; 77067; 77080

== ENCOUNTER → 2024-01-19 | Outpatient (CLI) | payer MEDICARE, OTHER, SELFPAY ==
[2024-01-19 13:24] LABS: Anion Gap 7 (5-15); BUN 16 mg/dL (7-18); BUN/Creat Ratio 16.6 RATIO (10-20); Calcium,Total 10.1 mg/dL (8.5-10.1); Chloride 109 mmol/L (98-107); Creatinine, Serum 0.96 mg/dL (0.55-1.02); EST Glomerular Filtration Rate 62 mL/min (>60); Est Glom Filt Rate - Afr Amer 74 mL/min (>60); Glucose 88 mg/dL (74-106); Potassium 3.9 mmol/L (3.5-5.1); Sodium Level 141 mmol/L (136-145)
[2024-01-20 10:28] LABS: Vitamin D,25 Hydroxy 31.2 ng/mL
[2024-01-20 13:04] LABS: PTHIN 36.4 pg/mL (18.4-80.1)
== END | disposition home or self-care (01) ==
LOC: BIMLAB 10:01
PROVIDERS: PCP Internal Medicine; Referring Provider Internal Medicine; Visit Provider Internal Medicine
DX: I10 Essential (primary) hypertension (principal)
CPT/HCPCS: 36415; 80048; 82306; 83970

== ENCOUNTER → 2024-07-19 | Outpatient (CLI) | payer MEDICARE, OTHER, SELFPAY ==
[2024-07-19 12:33] LABS: Absolute Neutrophil Count 5.6 X10^3/uL (2.0-7.7); Basophil# 0.05 X10^3/uL; Basophil% 0.6 % (0-1); Eosinophils% 1.3 % (0-5); Hematocrit 37.9 % (37-47); Hemoglobin 12.3 g/dL (12.0-15.0); Lymphocyte % 20.2 % (19-41); Mean Corp Hgb Conc 32.5 g/dL (32-36); Mean Corpuscular Hgb 29.5 pg (27.0-32.0); Mean Corpuscular Volume 90.9 fL (81-99); Mean Platelet Vol. 10.4 fl (6.2-12.0); Monocyte# 0.53 X10^3/uL; Monocyte% 6.7 % (0-10); NRBC Flagged by Analyzer 0 % (0-5); Neutrophil % 70.8 % (47-70); Platelet Count 345 K/mm3 (150-450); RBC Distribution Width CV 12.7 % (11.6-14.6); RBC Distribution Width SD 41.9 fl (35.1-43.9); Red Blood Count 4.17 M/mm3 (4.2-5.4); White Blood Count 7.9 K/mm3 (4.4-11.0)
[2024-07-19 12:35] LABS: ALB/GLOB Ratio 0.9 RATIO (0.9-2.4); AST(SGOT) 19 U/L (15-37); Alanine Aminotransfer ALT/SGPT 25 U/L (13-56); Albumin, Serum 3.6 g/dL (3.2-5.0); Alkaline Phosphatase 69 U/L (45-117); Anion Gap 8 (5-15); BUN 18 mg/dL (7-18); BUN/Creat Ratio 20.7 RATIO (10-20); Calcium,Total 9.5 mg/dL (8.5-10.1); Chloride 109 mmol/L (98-107); Cholesterol 169 mg/dL (200); Creatinine, Serum 0.87 mg/dL (0.55-1.02); EST Glomerular Filtration Rate 69 mL/min (>60); Est Glom Filt Rate - Afr Amer 84 mL/min (>60); Globulin 3.9 g/dL (2.2-4.2); Glucose 96 mg/dL (74-106); High Density Lipoprotein 93 mg/dL; Protein, Total 7.5 g/dL (6.4-8.2); Sodium Level 141 mmol/L (136-145); Triglycerides 62 mg/dL; Very Low Density Lipoprotein 12 mg/dL (5-40)
== END | disposition home or self-care (01) ==
LOC: BIMLAB 09:35
PROVIDERS: PCP Internal Medicine; Referring Provider Internal Medicine; Visit Provider Internal Medicine
DX: I10 Essential (primary) hypertension (principal); E78.5 Hyperlipidemia, unspecified
CPT/HCPCS: 36415; 80053; 80061; 85025

== ENCOUNTER → 2024-10-19 | Outpatient (CLI) | payer MEDICARE, OTHER, SELFPAY ==
--- NOTE | 2024-10-19 09:15 | BI_ITS ---
PROCEDURE: SCRN MAMM (CAD)W/BC BILAT REASON FOR EXAM: F, Age 64 y/o, no family history. TECHNIQUE: Bilateral screening digital breast tomosynthesis with 2D and 3D images. Computer aided detection. COMPARISON: Prior exam(s) dating back to August 26 2023.. FINDINGS: There are scattered areas of fibroglandular density. Stable examination. No suspicious masses, areas of developing architectural distortion, or suspicious calcifications. BI/SCRN MAMM (CAD)W/BC BILAT IMPRESSION: BI-RADS 1: NEGATIVE. RECOMMEND ANNUAL MAMMOGRAPHIC SCREENING. Follow-up code: Routine Follow-up The patient will be notified of the results by letter. Reading Location: [facility]
== END | disposition home or self-care (01) ==
PROVIDERS: PCP Internal Medicine; Referring Provider Internal Medicine; Visit Provider Internal Medicine
DX: Z12.31 Encounter for screening mammogram for malignant neoplasm of breast (principal)
CPT/HCPCS: 77063; 77067

== ENCOUNTER → 2025-01-19 | Outpatient (CLI) | payer MEDICARE, OTHER, SELFPAY ==
--- NOTE | 2025-01-19 09:00 | RAD_ITS ---
EXAM: XR Left Knee, 3 Views CLINICAL INDICATION: BILATERAL KNEE PAIN TECHNIQUE: Three views of the left knee. COMPARISON: No relevant prior studies available. FINDINGS: BONES/JOINTS: Unremarkable. No acute fracture. No dislocation. SOFT TISSUES: Unremarkable. RAD/Knee 3 Views IMPRESSION: No acute fracture. Reading Location: [id number]
--- NOTE | 2025-01-19 09:06 | RAD_ITS ---
EXAM: XR Right Knee, 3 Views CLINICAL INDICATION: BILATERAL KNEE PAIN TECHNIQUE: Three views of the right knee. COMPARISON: No relevant prior studies available. FINDINGS: BONES/JOINTS: Mild tricompartmental degenerative changes of the knee joint. No acute fracture. No dislocation. SOFT TISSUES: Soft tissue swelling. RAD/Knee 3 Views IMPRESSION: Degenerative changes as above. Reading Location: [id number]
[2025-01-19 13:09] LABS: Anion Gap 13 (5-15); BUN 16 mg/dL (4-19); BUN/Creat Ratio 17.3 RATIO (10-20); Carbon Dioxide 22.3 mmol/L (21.0-32.0); Chloride 105 mmol/L (98-108); Creatinine, Serum 0.95 mg/dL (0.70-1.20); EST Glomerular Filtration Rate 66 (>60); Glucose 91 mg/dL (70-99); Potassium 4.4 mmol/L (3.3-5.1); Sodium Level 140 mmol/L (133-145)
== END | disposition home or self-care (01) ==
PROVIDERS: PCP Internal Medicine; Referring Provider Internal Medicine; Visit Provider Internal Medicine
DX: M25.561 Pain in right knee (principal); M25.562 Pain in left knee
CPT/HCPCS: 36415; 73562; 80048

== ENCOUNTER → 2025-01-29 | Outpatient (CLI) | payer MEDICARE, OTHER, SELFPAY ==
--- NOTE | 2025-01-29 09:45 | RAD_ITS ---
PROCEDURE: BONE LENGTH 01/29/2025 REASON FOR EXAM: UNEQUAL LIMB LENGTH F, age 64 y/o . TECHNIQUE: BONE LENGTH COMPARISON: None FINDINGS: The right femur measures 44.92 cm from the top of the articular surface of the femoral head to the intercondylar fossa. The left femur measures 44.92 cm from the top of the articular surface of the femoral head to the intercondylar fossa. The right tibia measures 36.87 cm from the top of the tibial spine to the mid aspect of the tibial plafond. The left tibia measures 36.89 cm from the top of the tibial spine to the mid aspect of the tibial plafond. The femurs, tibia and fibula as well as the visualized ankle joints are normal. RAD/Bone Length IMPRESSION: Normal bones of the lower extremities without length discrepancy. Reading Location[facility]
--- OUTSIDE RECORDS SUMMARY | 2025-01-29 21:23 | XMS RPT_ITS | CCD ---
Author Organization [facility] Care Team Providers Care Medical Assisting Instructor Name Role Phone Dr. Alberto Garrett Primary Care Provider [phone] Dr. Alberto Garrett Referring Provider [phone])2 Nurse, Surgery Attending Provider Unavailable Friend, Dr. Head Attending Provider 1(330) Friend, Dr. Head Other Provider 1(330)- Dr. Alberto Garrett Attending Provider [phone])2 Rogelio RUBIN, NESTOR Raza Attending Provider 1(330 ) Dr. Alberto Garrett Primary Care Provider 1(33 0) Dr. Alberto Garrett Referring Provider 1(330)2 Dr. Alexandru Benavides Referring Provider Dr. Alberto Garrett Primary Care Provider 1(33 0) Dr. Alberto Garrett Attending Provider [phone])2 Dr. Alberto Grarett Referring Provider 1(330)2 Dr. Alberto Garrett MD Primary Care Provider Dr. Alberto Garrett MD Attending Provider 1(33 0) Dr. Alberto Garrett MD Referring Provider 1(33 0) Dr. Alberto Garrett MD Primary Care Provider Dr. Alberto Garrett MD Attending Provider 1(33 0) Oleghe MD, Dr. Efewongbe Referring Provider [phone] Referred, Self Attending Provider Unavailable Referred, Self Referring Provider Unavailable Dr. Christopher Phillips MD Attending Provider [phone] Brandan Aguirre Attending Provider Oleghe, Efewongbe Primary Care Unavailable Oleghe, Efewongbe Attending Unavailable Oleghe, Efewongbe Referring Unavailable Brandan Aguirre Attending Unavailable Oleghe, Efewongbe Primary Care Unavailable Oleghe, Efewongbe Referring Unavailable Oleghe, Efewongbe Primary Care Unavailable Oleghe, Efewongbe Attending Unavailable Oleghe, Efewongbe Referring Unavailable Oleghe, Efewongbe Primary Care Unavailable Brandan Aguirre Attending Unavailable Oleghe, Efewongbe Referring Unavailable Oleghe, Efewongbe Primary Care Unavailable Oleghe, Efewongbe Attending Unavailable Oleghe, Efewongbe Referring Unavailable Oleghe, Efewongbe Primary Care Unavailable Oleghe, Efewongbe Attending Unavailable Oleghe, Efewongbe Referring Unavailable Oleghe, Efewongbe Primary Care Unavailable Referred, Self Attending Unavailable Referred, Self Referring Unavailable Oleghe, Efewongbe Referring Unavailable Oleghe, Efewongbe Primary Care Unavailable Oleghe, Efewongbe Attending Unavailable Oleghe, Efewongbe Primary Care Unavailable Oleghe, Efewongbe Attending Unavailable Oleghe, Efewongbe Referring Unavailable Oleghe, Efewongbe Attending Unavailable Oleghe, Efewongbe Referring Unavailable Oleghe, Efewongbe Primary Care Unavailable Oleghe, Efewongbe Primary Care Unavailable Christopher Phillips Attending Unavailable Allergies Allergy Classification Reported Allergen(s) Allergy Type Date of Onset Reaction(s) Facility (9 sources) Povidone-Iodine Drug Allergy 2 [facility] (10 sources) Sulfonamides (Antibiotic); Translations: [Sulfa (Sulfonamide Antibiotics)] Allergy to substance 2 [facility] (10 sources) soap; Translations: [soap] Allergy to substance 2 [facility] (1 source) Povidone-Iodine Drug Allergy 5 [facility] Repository Medications Current Medications Medication Drug Class(es) Dates Sig (Normalized) Sig (Original) aspirin 81 mg delayed release oral tablet (2 sources) Platelet Aggregation Inhibitor, Nonsteroidal Anti-inflammatory Drug Start: 01-19-2025 Aspirin (Adult Low Dose Aspirin) 81 mg tablet,delayed release (DR/EC) Active 81 mg PO daily January 19, 2025 12:00am cholecalciferol 0.1 mg oral tablet (3 sources) Vitamin D Start: 12-27-2024 take 1 tablet by mouth once daily Cholecalciferol (Vitamin D3) 100 mcg (4,000 unit) tablet Active 100 ug PO daily December 27, 2024 12:00am Coenzyme Q10 (H2q Coq10) 200 mg/gram powder (2 sources) Start: 01-19-2025 take 1 mg by mouth once daily Coenzyme Q10 (H2q Coq10) 200 mg/gram powder Active mg PO daily January 19, 2025 12:00am meloxicam 15 mg oral tablet (1 source) Nonsteroidal Anti-inflammatory Drug Start: 01-22-2025 take 1 tablet by mouth once daily as needed for pain Meloxicam 15 mg tablet Active 15 mg PO daily as needed for pain January 22, 2025 12:00am metroNIDAZOLE 0.0075 mg/mg topical gel (20 sources) Nitroimidazole Antimicrobial Start: 07-19-2024 End: 07-19-2024 Metronidazole 0.75 % gel Active 1 NMA TOPICAL daily July 19, 2024 10:24am Start: 05-06-2020 End: 08-29-2021 Metronidazole (Metrogel) 1 % gel Discontinued 1 NMA TOPICAL DAILY as needed May 06, 2020 12:00am August 29, 2021 3:19pm Start: 05-04-2019 End: 05-06-2020 Metronidazole (Metrogel Vagi nal) 0.75 % gel Discontinued 1 NMA VAGINAL DAILY as needed May 04, 2019 12:00am May 06, 2020 9:18am Completed/Discontinued Medications Medication Drug Class(es) Dates Sig (Normalized) Sig (Original) atorvastatin 10 mg oral tablet (20 sources) HMG-CoA Reductase Inhibitor Start: 08-24-2023 take 1 tablet by mouth at bedtime Atorvastatin Active 0 .ROUTE .COMPLEX 90 August 24, 2023 12:27pm TAKE 1 TABLET BY MOUTH AT BEDTIME Start: 04-25-2019 End: 10-16-2024 take 1 tablet by mouth at bedtime Atorvastatin 10 mg tablet Discontinued 0 .ROUTE .COMPLEX May 15, 2024 8:28am October 16, 2024 10:13am TAKE 1 TABLET BY MOUTH AT BEDTIME hydrOXYzine hydrochloride 25 mg oral tablet (4 sources) Antihistamine Start: 04-06-2024 End: 07-19-2024 take 1 tablet by mouth three times daily as needed Hydroxyzine Hcl 25 mg tablet Discontinued 25 mg PO THREE TIMES A DAY as needed for itching April 06, 2024 12:00am July 19, 2024 10:14am lisinopril 10 mg oral tablet (20 sources) Angiotensin Converting Enzyme Inhibitor Start: 05-04-2019 End: 08-14-2024 take 1 tablet by mouth once daily Lisinopril 10 mg tablet Discontinued 0 .ROUTE .COMPLEX May 15, 2024 8:28am August 14, 2024 11:25am TAKE 1 TABLET BY MOUTH EVERY DAY triamcinolone acetonide 1 mg/ml topical cream (4 sources) Corticosteroid Start: 04-06-2024 End: 07-19-2024 Triamcinolone Acetonide 0.1 % cream Discontinued 1 NMA TOPICAL THREE TIMES A DAY April 06, 2024 12:00am July 19, 2024 10:15am Problems Active Problems Problem Classification Problem Date Documented Date Episodic/Chronic Allergic reactions (4 sources) Contact dermatitis due to poison chela; Translations: [Allergic contact dermatitis due to plants, except food] 04-06-2024 Episodic Disorders of lipid metabolism (20 sources) Pure hypercholesterolemia; Translations: [Pure hypercholesterolemia, unspecified] Onset: 01-19-2025 04-25-2019 Chronic Essential hypertension (16 sources) Essential hypertension; Translations: [Essential (primary) hypertension] Onset: 01-19-2025 Chronic Noninfectious gastroenteritis (12 sources) Colitis; Translations: [Noninfective gastroenteritis and colitis, unspecified] Episodic Nonspecific chest pain (9 sources) Precordial pain; Translations: [Precordial pain] 05-01-2020 Episodic Other connective tissue disease (5 sources) Muscle pain; Translations: [Myalgia, unspecified site] 12-27-2024 Episodic Other connective tissue disease (1 source) Myalgia, unspecified site; Translations: [Myalgia, unspecified site] Onset: 01-15-2025 Episodic Other non-traumatic joint disorders (5 sources) Pain in right knee; Translations: [Pain in both knees] Onset: 01-25-2025 01-19-2025 Episodic Other non-traumatic joint disorders (1 source) Pain in left knee; Translations: [Pain in left knee] Onset: 01-19-2025 Episodic Other nutritional; endocrine; and metabolic disorders (4 sources) Hypercalcemia; Translations: [Hypercalcemia] 01-19-2024 Chronic Other screening for suspected conditions (not mental disorders or infectious disease) (16 sources) Coronary arteriography abnormal; Translations: [Abnormal findings on diagnostic imaging of heart and coronary circulation] Onset: 10-31-2024 04-25-2019 Episodic Residual codes; unclassified (11 sources) FH: premature coronary heart disease; Translations: [Family history of ischemic heart disease and other diseases of the circulatory system] 08-29-2021 Episodic Residual codes; unclassified (2 sources) Family history of ischemic heart disease and other diseases of the circulatory system; Translations: [Family history of ischemic heart disease and other diseases of the circulatory system] Onset: 01-19-2025 Episodic Thyroid disorders (9 sources) Goiter; Translations: [Nontoxic goiter, unspecified] 08-14-2021 Chronic Past or Other Problems Problem Classification Problem Date Documented Da te Episodic/Chronic Immunizations and screening for infectious disease (1 source) Encounter for immunization; Translations: [Encounter for immunization] Onset: 07-19-2024 Episodic Results Test Name Value Interpretation Reference Range Facility Inital Evaluation (1) - PT 01-23-2025 Inital Evaluation (1) - PT [facility] [address] [place] [address]. [address] [place] [id number] / REHABILITATION SERVICES INITIAL EVALUATION MR#: [id number] Acct: [id number] Name: DARLYN ESCOBAR Rep #: [id number] : 1960 64 From: Allie Altman DPT Referring Dr.: Dr. Alberto Garrett MD Status: REG RCR Insurance: MEDICARE PART A B AARP Patient's Visit Information Visit Information Visit Information: DARLYN ESCOBAR is a 64 year old F referred to Physical Therapy by Dr. Alberto Garrett MD with a diagnosis of Bilateral Knee Pain. Date of Evaluation: 01/23/25 Physical Therapist: Allie Altman DPT Visit Plan Frequency: 2-3x /Week Duration: 4 Weeks Plan: Focus on LE and core strength/stabilization gym and HEP program. HEP Given IE: Sit to stand, SLS, hamstring stretch, HR/TR Subjective Subjective: She has had bilateral knee pain but the right knee is worse- she walks 1-2 miles daily- the back hurts so bad she couldn't walk really anymore and she wanted to sit down. She could bend but then she could not straighten it out. It was has been happening about 6 months so she went and saw the MD which took x-rays which showed tissue swelling and mild OA. Patient reports that yesterday she started taking an anti-inflammatory (Meloxicam).She took one and is much better. She has no knee pain today. The pain was under the knee cap and below it and when she walks its posterior knee. Last winter she was treated for achilles tendonitis on the right side and she can still feel it in the heel- she did have PT for it and it never went away. She thinks she has a spur. She does not wear an orthotic but she does feel that she has one leg longer than another. Worst: She reports feeling that it felt like it was grabbing and then it opened up. Best: heat and ice and the Meloxicam. Was playing Pickleball 3x a week- she rides bike which does not bother the knee. She is doing some stretches but not strength training. Sleep: not disturbed last night but has woken her before. PMHx/Meds: see list in chart. Objective Objective: Posture: forward head, rounded shoulders- can correct with verbal cues Gait: pes planus, valgus at the knees- right>left HR/TR: able with mild LOB with TR able to right herself SLS: Left: 3 sec Right: 5 seconds Sensation: WNL to gross touch bilateral LE Palpation: not tender to touch along joint line ROM: 0-120 with mild crepitus bilateral without pain Strength: Core: fair, Hip: flexion: 4/5, Extn: 4-/5 with cramping left>right, Abd: 4-/5, IR/ER: 4/5, Knee: Extn: Right: 44, 49 Left: 42, 44Flexion: Right 22, 24 Left: 23, 25 Ankle: 5/5 Flex: HS: moderate Gastroc: moderate Balance/Special Test Scores Lower Extremity Functional Score: 55 Goals Goal 1:: Patient will be I with HEP and progression Goal Time Frame: 4-6 Weeks Goal 2:: Patient will SLS for 10 seconds bilateral without LOB Goal Time Frame: 4-6 Weeks Goal 3:: Patient will demo increase of 10# of force in knee strength Goal Time Frame: 4-6 Weeks Goal 4:: Patient will report 80% improvement Goal Time Frame: 4-6 Weeks Rehabilitation Potential Physical Therapy Diagnosis: Patient presents with decreased LE and core strength/stabilization, flex and muscular endurance leading to abnormal gait and increased pain with ADL's. Rehabilitation Potential: Good Anticipated Interventions Patient/Client Instruction: Educate patient on: Benefits of Fitness Program Therapeutic Exercise to Include: Strength training, Endurance training, Balance training, Coordination, Agility training, Body mechanics, Postural training, Flexibilty training, Gait and locomotor training, Neuromotor development, Dynamic Lumbar Stabilization and Scapular Strength/Stabilization For the Purpose of:: To improve muscle performance and motor function TENS: Yes Cryotherapy (ice pack, ice massage): Yes Thermo therapy (hot pack): Yes Ultrasound (thermal/non thermal): Yes Text: Thank you for the opportunity to evaluate your patient. For Medicare and Medicare HMO plans, please review the plan of care and approve it. It will need to be FAXED BACK to us at [phone] for Medicare purposes. For Medicare only, by signing this I certify the plan of care. Please let me know if there are questions or concerns regarding this plan of care. Physician Signature: Date: 01/23/25 0815 CC: Dr. Alberto Garrett MD ELR Signed Normal [facility] Inital Evaluation (1) - PT [facility] [address] [place] [address] / REHABILITATION SERVICES INITIAL EVALUATION MR#: [id number] Acct: [id number] Name: DARLYN ESCOBAR Rep #: [id number] : 1960 64 From: Allie Altman DPT Referring Dr.: Dr. Alberto Garrett MD Status: REG RCR Insurance: MEDICARE PART A B AARP Patient's Visit Information Visit Information Visit Information: DARLYN ESCOBAR is a 64 year old F referred to Physical Therapy by Dr. Alberto Garrett MD with a diagnosis of Bilateral Knee Pain. Date of Evaluation: 01/23/25 Physical Therapist: Allie Altman DPT Visit Plan Frequency: 2-3x /Week Duration: 4 Weeks Plan: Focus on LE and core strength/stabilization gym and HEP program. HEP Given IE: Sit to stand, SLS, hamstring stretch, HR/TR Subjective Subjective: She has had bilateral knee pain but the right knee is worse- she walks 1-2 miles daily- the back hurts so bad she couldn't walk really anymore and she wanted to sit down. She could bend but then she could not straighten it out. It was has been happening about 6 months so she went and saw the MD which took x-rays which showed tissue swelling and mild OA. Patient reports that yesterday she started taking an anti-inflammatory (Meloxicam).She took one and is much better. She has no knee pain today. The pain was under the knee cap and below it and when she walks its posterior knee. Last winter she was treated for achilles tendonitis on the right side and she can still feel it in the heel- she did have PT for it and it never went away. She thinks she has a spur. She does not wear an orthotic but she does feel that she has one leg longer than another. Worst: -03/25 She reports feeling that it felt like it was grabbing and then it opened up. Best: heat and ice and the Meloxicam. Was playing Pickleball 3x a week- she rides bike which does not bother the knee. She is doing some stretches but not strength training. Sleep: not disturbed last night but has woken her before. PMHx/Meds: see list in chart. Objective Objective: Posture: forward head, rounded shoulders- can correct with verbal cues Gait: pes planus, valgus at the knees- right>left HR/TR: able with mild LOB with TR able to right herself SLS: Left: 3 sec Right: 5 seconds Sensation: WNL to gross touch bilateral LE Palpation: not tender to touch along joint line ROM: 0-120 with mild crepitus bilateral without pain Strength: Core: fair, Hip: flexion: 4/5, Extn: 4-/5 with cramping left>right, Abd: 4-/5, IR/ER: 4/5, Knee: Extn: Right: 44, 49 Left: 42, 44Flexion: Right 22, 24 Left: 23, 25 Ankle: 5/5 Flex: HS: moderate Gastroc: moderate Balance/Special Test Scores Lower Extremity Functional Score: 55 Goals Goal 1:: Patient will be I with HEP and progression Goal Time Frame: 4-6 Weeks Goal 2:: Patient will SLS for 10 seconds bilateral without LOB Goal Time Frame: 4-6 Weeks Goal 3:: Patient will demo increase of 10# of force in knee strength Goal Time Frame: 4-6 Weeks Goal 4:: Patient will report 80% improvement Goal Time Frame: 4-6 Weeks Rehabilitation Potential Physical Therapy Diagnosis: Patient presents with decreased LE and core strength/stabilization, flex and muscular endurance leading to abnormal gait and increased pain with ADL's. Rehabilitation Potential: Good Anticipated Interventions Patient/Client Instruction: Educate patient on: Benefits of Fitness Program Therapeutic Exercise to Include: Strength training, Endurance training, Balance training, Coordination, Agility training, Body mechanics, Postural training, Flexibilty training, Gait and locomotor training, Neuromotor development, Dynamic Lumbar Stabilization and Scapular Strength/Stabilization For the Purpose of:: To improve muscle performance and motor function TENS: Yes Cryotherapy (ice pack, ice massage): Yes Thermo therapy (hot pack): Yes Ultrasound (thermal/non thermal): Yes Text: Thank you for the opportunity to evaluate your patient. For Medicare and Medicare HMO plans, please review the plan of care and approve it. It will need to be FAXED BACK to us at [phone] for Medicare purposes. For Medicare only, by signing this I certify the plan of care. Please let me know if there are questions or concerns regarding this plan of care. Physician Signature: Date: 01/23/25 0815 CC: Dr. Alberto Garrett MD MCKAYLA Signed Normal [facility] Anion gap in Serum or Plasma Ordered By: Alberto Garrett on 01-19-2025 Anion gap [Moles/Vol] 13 mmol/L 12-28 [facility] BUN/creatinine ratioOrdered By: Alberto Garrett on 01-19-2025 Urea nitrogen/Creatinine [Mass ratio] 17.3 mg/mg - [facility] Basic Metabolic Profile (BMP )on 01-19-2025 BUN/CRE 17.3 RATIO Normal 06-04 [facility] Comment on above: Performed By: #### L 500.2500 #### [facility] [address] [facility] [place], [address] Calcium [Mass/Vol] 10.0 mg/dL Normal 7.6-11.0 [facility] Comment on above: Performed By: #### L 500.2500 #### [facility] [address] [place], [address] Chloride [Moles/Vol] 105 mmol/L Normal 98-108 [facility] Comment on above: Performed By: #### L 500.2500 #### [facility] [address] [place], [address] CO2 [Moles/Vol] 22.3 mmol/L Normal 21.0-32.0 [facility] Comment on above: Performed By: #### L 500.2500 #### [facility] [address] [place], [address] Creatinine [Mass/Vol] 0.95 mg/dL Normal 0.70-1.20 [facility] Comment on above: Performed By: #### L 500.2500 #### [facility] [address] [place], [address] GAP 13 Normal 5-15 [facility] Comment on above: Performed By: #### L 500.2500 #### [facility] [address] [place], [address] GFR/1.73 sq M.predicted among non-blacks MDRD (S/P/Bld) [Vol rate/Area] 66 mL/min/{1.73_m2} Normal >60 [facility] Comment on above: Result Comment: mL/m in/1.73m2 CKD-EPI Creatinine Equation (2020) Performed By: #### L 500.2500 #### [facility] [address] [place], [address] Glucose [Mass/Vol] 91 mg/dL Normal 70-99 [facility] Comment on above: Performed By: #### L 500.2500 #### [facility] [address] [place], [address] Potassium [Moles/Vol] 4.4 mmol/L Normal 3.3-5.1 [facility] Comment on above: Performed By: #### L 500.2500 #### [facility] [address] [place], [address] Sodium [Moles/Vol] 140 mmol/L Normal 133-145 [facility] Comment on above: Performed By: #### L 500.2500 #### [facility] [address] [place], [address] Urea nitrogen [Mass/Vol] 16 mg/dL Normal 4-19 [facility] Comment on above: Performed By: #### L 500.2500 #### [facility] [address] [place], [address] Carbon dioxide, total [Moles /volume] in Central venous bloodOrdered By: Alberto Garrett on 01-19-2025 CO2 [Moles/Vol] 22.3 mmol/L 21.0-32.0 [facility] Chloride assayOrdered By: León Garrett on 01-19-2025 Chloride [Moles/Vol] 105 mmol/L 98-108 [facility] Glomerular filtration rate ( GFR) estimation/1.73 sq m using serum, plasma, or whole bOrdered By: Alberto Garrett on 01-19-2025 GFR/1.73 sq M.predicted among non-blacks MDRD (S/P/Bld) [Vol rate/Area] 66 mL/min/{1.73_m2} >60 [facility] Comment on above: mL/min/1.73m2 CKD-EP I Creatinine Equation (2020) Internal Medicine Office Vis iton 01-19-2025 Internal Medicine Office Visit [facility] [address] [place] [address] [place] [address] OFFICE VISIT Date of Service: 01/19/25 MR#: [id number] Acct: [id number] Name: DARLYN ESCOBAR Rep #: [id number] : 1960 Provider: Dr. Alberto morgan MD Age/Sex: 64/F [place] [facility] [place]: Signed Intake Vital Signs 07/19/24 09:16 12/27/24 08:14 01/19/25 08:05 Height 5 ft 6 in 5 ft 6 in 5 ft 6 in Weight: 163 lb BMI 26.3 BP 132/80 H Blood Pressure Location Lt brachial Position Sitting Respiration 16 Pulse 92 Pulse Source Monitor Temp 97.1 F L Temp Source Temporal Pulse Oximetry (%) 96 Oxygen Delivery Method room air Intake Visit Reasons: 6 M FU Chief Complaint: right knee injury and pain Clinical Educator Required: No Accompanied by: Self Is patient in pain?: Yes Pain scale (1-10): 7 Allergies povidone-iodine (From Betadine) Allergy (Severe, Verified 01/19/25 08:02) Rash soap (From Betadine) Allergy (Severe, Verified 01/19/25 08:02) Rash Sulfa (Sulfonamide Antibiotics) Allergy (Unknown, Verified 01/19/25 08:02) Unknown Medications ???Medication ???Instructions ???Recorded ???Confirmed ???Type metronidazole 0.75 % topical gel 1 applic topical QDAY #45 grams 01/19/25 Rx lisinopril 10 mg tablet See Rx Instructions .Route 4 01/19/25 Rx .COMPLEX #90 tabs atorvastatin 10 mg tablet See Rx Instructions .Route 5 01/19/25 Rx .COMPLEX #90 tabs cholecalciferol (vitamin D3) 100 100 mcg PO QDAY 12/27/24 01/19/25 History mcg (4,000 unit) tablet aspirin 81 mg tablet,delayed 81 mg PO QDAY 01/19/25 01/19/25 Hi story release (Adult Low Dose Aspirin) coenzyme Q10 200 mg/gram oral mg PO QDAY 01/19/25 01/19/25 Histo ry powder (H2Q CoQ10) Have you fallen in the past year?: No Nurse's Note: hurt right knee while playing pickle ball [facility] Medical History (Updated 01/19/25 @ 08:[address] Alberto Garrett MD) Screening for cardiovascular condition Bilateral knee pain Hypercalcemia Health care maintenance Hyperlipidemia Colitis determined by colorectal biopsy Wears glasses Alcohol use Thyroid disease High cholesterol Restless legs Back pain Syncope Heartburn Non-smoker Leg cramps History of stress test Cardiology follow-up encounter Family history of early CAD Goiter Precordial pain Essential hypertension HTN (hypertension) Multiple thyroid nodules Pure hypercholesterolemia Abnormal cardiac CT angiography Surgical History Hx of colonoscopy History of appendectomy Status post partial thyroidectomy Family History Sister Hypertension Mother CAD (coronary artery disease) History of coronary artery bypass surgery Brother Hypertension Brother Sudden cardiac , Onset Age: 42 Hypertension Father Hypertension Myocardial infarction, Onset Age: 57 Social History household members: spouse current occupational status: unemployed Smoking Status: Never smoker alcohol intake: current alcohol intake frequency: holidays/special occasions only substance use type: does not use caffeine: Yes Type: coffee Number of servings: 1 what type of physical activity do you participate in: aerobics and weight training frequency: 5-6 times per week seatbelt use: always do you feel safe at home: Yes additional social history: - [place] HPI HPI Chief Complaint: right knee injury and pain Details: DARLYN ESCOBAR, is a 64 F who presents to the office today for follow-up of her chronic conditions. Also has some concerns. She states that over the last couple of months she has had bilateral knee pain however, a few days ago while playing pickle ball she believes that she may have injured her right knee because it started hurting more. Worse with movement. She states that she hears clicking after she has been immobile for a while. Took Advil and applied topical analgesia which helped somewhat. Has not had imaging. History of hyperlipidemia, also family history of early CAD. Had been on atorvastatin 10 mg daily but recently, she states that she held it due to increased cramping in her lower extremity. Believes that there has been some improvement with holding it. She is concerned about her risk factor. She however states that since her initial diagnosis of hyperlipidemia, she has made significant dietary and lifestyle changes and her numbers have been within range. History of hypertension, typically elevated blood pressure readings during office visit but she states that she monitors her numbers at home and her readings have been stable. Blood pressure in office today at 132/80 mmHg. No darien (more content not included)... Normal [facility] Knee 3 Viewson 01-19-2025 Knee 3 Views [facility] Imaging Services [address] [place], [place] [id number] Knee 3 Views MR#: [id number] Acct: [id number] Name: DARLYN ESCOBAR Rep #: [id number] : 1960 F 64 From: Hao Reyes MD PCP: Dr. Alberto Garrett MD Status: [facility] CLI Study: Knee 3 Views Date of Exam: 01/19/25 Exam# [id number] Ordering Dr: Alberto Garrett MD EXAM: XR Right Knee, 3 Views CLINICAL INDICATION: BILATERAL KNEE PAIN TECHNIQUE: Three views of the right knee. COMPARISON: No relevant prior studies available. FINDINGS: BONES/JOINTS: Mild tricompartmental degenerative changes of the knee joint. No acute fracture. No dislocation. SOFT TISSUES: Soft tissue swelling. RAD/Knee 3 Views IMPRESSION: Degenerative changes as above. Reading Location: [facility] CC: Dr. Alberto Garrett MD Track Liner Operator: Signed Normal [facility] Knee 3 Views [facility] Imaging Services [address] [place] [id number] Knee 3 Views MR#: [id number] Acct: [id number] Name: DARLYN ESCOBAR Rep #: [id number] : 1960 F 64 From: Hao Reyes MD PCP: Dr. Alberto Garrett MD Status: REG CLI Study: Knee 3 Views Date of Exam: 01/19/25 Exam# [id number] Ordering Dr: Alberto Garrett MD EXAM: XR Left Knee, 3 Views CLINICAL INDICATION: BILATERAL KNEE PAIN TECHNIQUE: Three views of the left knee. COMPARISON: No relevant prior studies available. FINDINGS: BONES/JOINTS: Unremarkable. No acute fracture. No dislocation. SOFT TISSUES: Unremarkable. RAD/Knee 3 Views IMPRESSION: No acute fracture. Reading Location: [facility] CC: Dr. Alberto Garrett MD Track Liner Operator: Signed Normal [facility] Potassium measurement (mass/ volume)Ordered By: Alberto Garrett on 01-19-2025 Potassium (Unsp spec) [Mass/Vol] 4.4 mmol/L 3.3-5.1 [facility] Serum creatinine measurement (mass/volume)Ordered By: Alberto Garrett on 01-19-2025 Creatinine [Mass/Vol] 0.95 mg/dL 0.70-1.20 [facility] Serum glucose measurement (m ass/volume)Ordered By: Alberto Garrett on 01-19-2025 Glucose [Mass/Vol] 91 mg/dL 70-99 [facility] Serum or plasma calcium estephania urement (mass/volume)Ordered By: Alberto Garrett on 01-19-2025 Calcium [Mass/Vol] 10.0 mg/dL 7.6-11.0 [facility] Serum or plasma urea nitroge n measurement (mass/volume)Ordered By: Alberto Garrett on 01-19-2025 Urea nitrogen [Mass/Vol] 16 mg/dL 4-19 [facility] Sodium levelOrdered By: Jeanne Garrett on 01-19-2025 Sodium [Moles/Vol] 140 mmol/L 133-145 [facility] Internal Medicine Office Vis mindi 12-27-2024 Internal Medicine Office Visit [facility] [address] [place] [address] [place] [address] OFFICE VISIT Date of Service: 12/27/24 MR#: [id number] Acct: [id number] Name: DARLYN ECSOBAR Rep #: [id number] : 1960 Provider: ZEKE Hercules Age/Sex: 64/F [place] [facility] [place]: Signed Intake Vital Signs 07/19/24 09:16 12/27/24 08:14 Height 5 ft 6 in 5 ft 6 in Weight: 164 lb BMI 26.4 BP 126/82 H Blood Pressure Location Lt brachial Position Sitting Respiration 16 Pulse 67 Pulse Source Monitor Temp 97.5 F L Temp Source Temporal Intake Visit Reasons: Acute-ache behind knees Chief Complaint: 6 M FU Clinical Educator Required: No Is patient in pain?: No Allergies povidone-iodine (From Betadine) Allergy (Severe, Verified 12/27/24 08:02) Rash soap (From Betadine) Allergy (Severe, Verified 12/27/24 08:02) Rash Sulfa (Sulfonamide Antibiotics) Allergy (Unknown, Verified 12/27/24 08:02) Unknown Medications ???Medication ???Instructions ???Recorded ???Confirmed ???Type metronidazole 0.75 % topical gel 1 applic topical QDAY #45 grams 12/27/24 Rx lisinopril 10 mg tablet See Rx Instructions .Route 4 12/27/24 Rx .COMPLEX #90 tabs atorvastatin 10 mg tablet See Rx Instructions .Route 5 12/27/24 Rx .COMPLEX #90 tabs cholecalciferol (vitamin D3) 100 100 mcg PO QDAY 12/27/24 12/27/24 History mcg (4,000 unit) tablet Have you fallen in the past year?: No Nurse's Note: Patient states she has had bilateral leg pain that does not go away. It is preventing her from walking long distances. Pt states the majority of the pain is when she is walking and both poiletal places. Pt is very active and this is preventing her from doing walking and pickleball. Pt states she did not injure herself, she has had aching knees for awhile. Pt states she was tx'd in September for Achilles Tendonitis which went away and came back on R side. Pt states that she has not started any new meds but spoke to Nurse friends that said the statin she is on causes it. She has been on it for a long time. Has also gotten a lot of petros horses in both legs which subsided. Pt states she has done rest, and taken it easy, stretching,heat,ice, and advil. Resting seems to be when it's the best but it doesnt completely make it go away.Pt states it hurts the worst when she walks long distances. Pt states when sitting there is not pain, it's when using them and at night into the mornings. Pt wants to see if she can dc statin as she thinks it could be that and vitamin d as she thinks it m,ay be too much. Pain is described as a tight ache. Pt denies Numbness, redness or swelling in popileteals. Pt states pain is an 8/10 when it is hurting. Pt leaves for vacation tomorrow, they will be driving [address] [facility] Medical History Hypercalcemia Health care maintenance Hyperlipidemia Colitis determined by colorectal biopsy Wears glasses Alcohol use Thyroid disease High cholesterol Restless legs Back pain Syncope Heartburn Non-smoker Leg cramps History of stress test Cardiology follow-up encounter Family history of early CAD Goiter Precordial pain Essential hypertension HTN (hypertension) Multiple thyroid nodules Pure hypercholesterolemia Abnormal cardiac CT angiography Surgical History Hx of colonoscopy History of appendectomy Status post partial thyroidectomy Family History Sister Hypertension Mother CAD (coronary artery disease) History of coronary artery bypass surgery Brother Hypertension Brother Sudden cardiac , Onset Age: 42 Hypertension Father Hypertension Myocardial infarction, Onset Age: 57 Social History household members: spouse current occupational status: unemployed Smoking Status: Never smoker alcohol intake: current alcohol intake frequency: holidays/special occasions only substance use type: does not use caffeine: Yes Type: coffee Number of servings: 1 what type of physical activity do you participate in: aerobics and weight training frequency: 5-6 times per week seatbelt use: always do you feel safe at home: Yes additional social history: - [place] HPI HPI Chief Complaint: 6 M FU Details: DARLYN ESCOBAR, is a 64 F who presents to the office today for some leg pains. Patient states that she is has always been active but the last 6 weeks she just gets a lot of aching in the back of the knee. She states that it gets back enough that she has to stop and almost cant continue walking. She states that she was getting a lot of l (more content not included)... Normal [facility] Breast imaging reportOrdered By: Pool Crandall on 10-19-2024 Study report [facility] Services [address] [place] [address] SCRN MAMM (CAD)W/BC BILAT MR#: [id number] Acct: [id number] Name: DARLYN ESCOBAR Rep #: [id number] : 1960 F 64 From: Ismael Crandall MD PCP: Dr. Alberto Garrett MD Status: R EG CLI Study:SCRN MAMM (CAD)W/BC BILAT Date of Exa m: 10/19/24 Exam# [id number] Ordering Dr: Paris Garrett MD PROCEDURE: SCRN MAMM (CAD)W/BC BILAT REASON FOR EXAM: F, Age 64 y/o, no family history. TECHNIQUE: Bilateral screening digital breast tomosynthesis with 2D and 3D images. Computeraided detection. COMPARISON: Prior exam(s) dating back to August 26 2023.. FINDINGS: There are scattered areas of fibroglandular density. Stable examination. No suspicious masses, areas of developing architectural distortion, or suspicious calcifications. BI/SCRN MAMM (CAD)W/BC BILAT IMPRESSION: BI-RADS 1: NEGATIVE. RECOMMEND ANNUAL MAMMOGRAPHIC SCREENING. Follow-up code: Routine Follow-up The patient will be notified of the results by letter. Reading Location: [id number] CC: Dr. 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: Signed [facility] SCRN MAMM (CAD)W/BC BILATo n 10-19-2024 SCRN MAMM (CAD)W/BC BILAT [facility] Imaging Services [address] [place] [id number] SCRN MAMM (CAD)W/BC BILAT MR#: [id number] Acct: [id number] Name: DARLYN ESCOBAR Rep #: [id number] : 1960 F 64 From: Pool cooper MD PCP: Dr. Alberto Garrett MD Status: REG CLI Study: SCRN MAMM (CAD)W/BC BILAT Date of Exam: 02/07 Exam# [id number] Ordering Dr: Alberto Garrett MD PROCEDURE: SCRN MAMM (CAD)W/BC BILAT REASON FOR EXAM: F, Age 64 y/o, no family history. TECHNIQUE: Bilateral screening digital breast tomosynthesis with 2D and 3D images. Computer aided detection. COMPARISON: Prior exam(s) dating back to August 26 2023.. FINDINGS: There are scattered areas of fibroglandular density. Stable examination. No suspicious masses, areas of developing architectural distortion, or suspicious calcifications. BI/SCRN MAMM (CAD)W/BC BILAT IMPRESSION: BI-RADS 1: NEGATIVE. RECOMMEND ANNUAL MAMMOGRAPHIC SCREENING. Follow-up code: Routine Follow-up The patient will be notified of the results by letter. Reading Location: [id number] CC: Dr. Alberto Garrett MD Track Liner Operator: Signed Normal [facility] Absolute neutrophil countOrd ered By: Alberto Garrett on 07-19-2024 Neutrophils (Bld) [#/Vol] 5.6 10*3/uL 2.0-7.7 [facility] Albumin to globulin ratioOrd ered By: Jeannetomahawkargleia Garrett on 07-19-2024 Albumin/Globulin [Mass ratio] 0.9 {ratio} 0.9-2.4 [facility] Basophil percentageOrdered B y: Alberto Garrett on 07-19-2024 Basophils/100 WBC (Bld) 0.6 % 0-1 [facility] Bilirubin, totalOrdered By: Alberto Garrett on 07-19-2024 Bilirubin [Mass/Vol] 0.50 mg/dL 0.20-1.00 [facility] Comment on above: For patients on eltr ombopag therapy, use of Dimension Imperial TBIL is not recommended. Blood urea nitrogen (BUN)/cr eatinine ratioOrdered By: Alberto Garrett on 07-19-2024 Urea nitrogen/Creatinine [Mass ratio] 20.7 mg/mg High 10-20 [facility] CBC W/Diff, Automatedon Absolute Lymph 1.60 X10 3/uL Normal 0.83-4.51 [facility] Comment on above: Performed By: #### L 500.4050, L500.4100, L100.0100 #### [facility] [address] [place], [address] Absolute Neut 5.6 X10 3/uL Normal 2.0-7.7 [facility] Comment on above: Performed By: #### L 500.4050, L500.4100, L100.0100 #### [facility] [address] [place], [address] Basophils/100 WBC (Bld) 0.6 % Normal 0-1 [facility] Comment on above: Performed By: #### L 500.4050, L500.4100, L100.0100 #### [facility] [address] [place], [address] Eosinophils/100 WBC (Bld) 1.3 % Normal 0-5 [facility] Comment on above: Performed By: #### L 500.4050, L500.4100, L100.0100 #### [facility] [address] [place], [address] Erythrocyte distribution width (RBC) [Ratio] 12.7 % Normal 11.6-14.6 [facility] Comment on above: Performed By: #### L 500.4050, L500.4100, L100.0100 #### [facility] [address] [place], [address] Hematocrit (Bld) [Volume fraction] 37.9 % Normal 37-47 [facility] Comment on above: Performed By: #### L 500.4050, L500.4100, L100.0100 #### [facility] [address] [place], [address] Hemoglobin (Bld) [Mass/Vol] 12.3 g/dL Normal 12.0-15.0 [facility] Comment on above: Performed By: #### L 500.4050, L500.4100, L100.0100 #### [facility] [address] [place], [address] IG% 0.400 Normal 0.0-0.9 [facility] Comment on above: Result Comment: IG% - Immature Granulocytes (promyelocytes, myelocytes and metamyelocytes) > 1% indicates that a LEFT SHIFT is Present. Performed By: #### L 500.4050, L500.4100, L100.0100 #### [facility] [address] [place], [address] Lymphocytes/100 WBC (Bld) 20.2 % Normal 19-41 [facility] Comment on above: Performed By: #### L 500.4050, L500.4100, L100.0100 #### [facility] [address] [place], [address] MCH (RBC) [Entitic mass] 29.5 pg Normal 27.0-32.0 [facility] Comment on above: Performed By: #### L 500.4050, L500.4100, L100.0100 #### [facility] [address] [place], [address] MCHC (RBC) [Mass/Vol] 32.5 g/dL Normal 32-36 [facility] Comment on above: Performed By: #### L 500.4050, L500.4100, L100.0100 #### [facility] [address] [place], [address] MCV (RBC) [Entitic vol] 90.9 fL Normal 81-99 [facility] Comment on above: Performed By: #### L 500.4050, L500.4100, L100.0100 #### [facility] [address] [place], [address] Monocytes/100 WBC (Bld) 6.7 % Normal 0-10 [facility] Comment on above: Performed By: #### L 500.4050, L500.4100, L100.0100 #### [facility] [address] [place], [address] Neutrophils/100 WBC (Bld) 70.8 % High 47-70 [facility] Comment on above: Performed By: #### L 500.4050, L500.4100, L100.0100 #### [facility] [address] [place], [address] Nucleated RBC (Bld) [#/Vol] 0 10*3/uL Normal 0-5 [facility] Comment on above: Performed By: #### L 500.4050, L500.4100, L100.0100 #### [facility] [address] [place], [address] Platelet mean volume (Bld) [Entitic vol] 10.4 fL Normal 6.2-12.0 [facility] Comment on above: Performed By: #### L 500.4050, L500.4100, L100.0100 #### [facility] [address] [place], [address] Platelets (Bld) [#/Vol] 345 10*3/uL Normal 150-450 [facility] Comment on above: Performed By: #### L 500.4050, L500.4100, L100.0100 #### [facility] [address] [place], [address] RBC (Bld) [#/Vol] 4.17 10*6/uL Low 4.2-5.4 [facility] Comment on above: Performed By: #### L 500.4050, L500.4100, L100.0100 #### [facility] [address] [place], [address] RDW SD 41.9 fl Normal 35.1-43.9 [facility] Comment on above: Performed By: #### L 500.4050, L500.4100, L100.0100 #### [facility] [address] [place], [address] WBC (Bld) [#/Vol] 7.9 10*3/uL Normal 4.4-11.0 [facility] Comment on above: Performed By: #### L 500.4050, L500.4100, L100.0100 #### [facility] [address] [place], [address] Carbon dioxide measurementOr dered By: Alberto Garrett on 07-19-2024 CO2 [Moles/Vol] 24.0 mmol/L 21.0-32.0 [facility] Chloride measurementOrdered By: Alberto Garrett on 07-19-2024 Chloride [Moles/Vol] 109 mmol/L High 98-107 [facility] Comprehensive Metabolic Prof ilon 07-19-2024 Albumin [Mass/Vol] 3.6 g/dL Normal 3.2-5.0 [facility] Comment on above: Performed By: #### L 500.4050, L500.4100, L100.0100 #### [facility] [address] [place], [address] Albumin/Globulin [Mass ratio] 0.9 {ratio} Normal 0.9-2.4 [facility] Comment on above: Performed By: #### L 500.4050, L500.4100, L100.0100 #### [facility] [address] [place], [address] ALK P 69 U/L Normal 45-117 [facility] Comment on above: Performed By: #### L 500.4050, L500.4100, L100.0100 #### [facility] [address] [place], [address] ALT [Catalytic activity/Vol] 25 U/L Normal 13-56 [facility] Comment on above: Performed By: #### L 500.4050, L500.4100, L100.0100 #### [facility] [address] [place], [address] AST [Catalytic activity/Vol] 19 U/L Normal 15-37 [facility] Comment on above: Performed By: #### L 500.4050, L500.4100, L100.0100 #### [facility] [address] [place], [address] Bilirubin [Mass/Vol] 0.50 mg/dL Normal 0.20-1.00 [facility] Comment on above: Result Comment: For patients on eltrombopag therapy, use of Dimension Imperial TBIL is not recommended. Performed By: #### L 500.4050, L500.4100, L100.0100 #### [facility] [address] [place], [address] BUN/CRE 20.7 RATIO High 10-20 [facility] Comment on above: Performed By: #### L 500.4050, L500.4100, L100.0100 #### [facility] [address] [place], [address] CA,Total 9.5 mg/dL Normal 8.5-10.1 [facility] Comment on above: Performed By: #### L 500.4050, L500.4100, L100.0100 #### [facility] [address] [place], [address] Chloride [Moles/Vol] 109 mmol/L High 98-107 [facility] Comment on above: Performed By: #### L 500.4050, L500.4100, L100.0100 #### [facility] [address] [place], [address] CO2 [Moles/Vol] 24.0 mmol/L Normal 21.0-32.0 [facility] Comment on above: Performed By: #### L 500.4050, L500.4100, L100.0100 #### [facility] [address] [place], [address] Creatinine [Mass/Vol] 0.87 mg/dL Normal 0.55-1.02 [facility] Comment on above: Result Comment: The validity of the calculated GFR GFRAA in patients over 70 years has not been determined. Clinical correlation is essential. Performed By: #### L 500.4050, L500.4100, L100.0100 #### [facility] [address] [place], [address] EST GFR - AA 84 mL/min Normal >60 [facility] Comment on above: Result Comment: Afri can Chilean GFR Calc Performed By: #### L 500.4050, L500.4100, L100.0100 #### [facility] [address] [place], [address] GAP 8 Normal 5-15 [facility] Comment on above: Performed By: #### L 500.4050, L500.4100, L100.0100 #### [facility] [address] [place], [address] GFR/1.73 sq M.predicted among non-blacks MDRD (S/P/Bld) [Vol rate/Area] 69 mL/min/{1.73_m2} Normal >60 [facility] Comment on above: Result Comment: Non- GFR Calc Performed By: #### L 500.4050, L500.4100, L100.0100 #### [facility] [address] [place], [address] Globulin (S) [Mass/Vol] 3.9 g/dL Normal 2.2-4.2 [facility] Comment on above: Performed By: #### L 500.4050, L500.4100, L100.0100 #### [facility] [address] [place], [address] Glucose [Mass/Vol] 96 mg/dL Normal 74-106 [facility] Comment on above: Performed By: #### L 500.4050, L500.4100, L100.0100 #### [facility] [address] [place], [address] Potassium [Moles/Vol] 4.0 mmol/L Normal 3.5-5.1 [facility] Comment on above: Performed By: #### L 500.4050, L500.4100, L100.0100 #### [facility] [address] [place], [address] Sodium [Moles/Vol] 141 mmol/L Normal 136-145 [facility] Comment on above: Performed By: #### L 500.4050, L500.4100, L100.0100 #### [facility] [address] [place], [address] T PROT 7.5 g/dL Normal 6.4-8.2 [facility] Comment on above: Performed By: #### L 500.4050, L500.4100, L100.0100 #### [facility] [address] [place], [address] Urea nitrogen [Mass/Vol] 18 mg/dL Normal 7-18 [facility] Comment on above: Performed By: #### L 500.4050, L500.4100, L100.0100 #### [facility] [address] [place], [address] Eosinophil percentageOrdered By: Alberto Garrett on 07-19-2024 Eosinophils/100 WBC (Bld) 1.3 % 0-5 [facility] Erythrocyte distribution wid th ratioOrdered By: Alberto Garrett on 07-19-2024 Erythrocyte distribution width (RBC) [Ratio] 12.7 % 11.6-14.6 [facility] Erythrocyte distribution wid th standard deviationOrdered By: Alberto Garrett on 07-19-2024 Erythrocyte distribution width (RBC) [Entitic vol] 41.9 fL 35.1-43.9 [facility] Estimated glomerular filtrat ion rate (GFR) AmericanOrdered By: Alberto Garrett on 07-19-2024 Estimated GFR (MDRD) Amer 84 mL/min >60 [facility] Comment on above: GFR Calc Glomerular filtration rate ( GFR) estimationOrdered By: Alberto Garrett on 07-19-2024 Estimated GFR (MDRD) Non-Af Amer 69 mL/min >60 [facility] Comment on above: Non- GFR Calc Glucose measurementOrdered B y: Alberto Garrett on 07-19-2024 Glucose [Mass/Vol] 96 mg/dL 74-106 [facility] Hematocrit Auto (Bld) [Volum e fraction]Ordered By: Alberto Garrett on 07-19-2024 Hematocrit (Bld) [Volume fraction] 37.9 % 37-47 [facility] Hemoglobin measurementOrdere d By: Alberto Garrett on 07-19-2024 Hemoglobin (Bld) [Mass/Vol] 12.3 g/dL 12.0-15.0 [facility] High density lipoprotein (HD L) measurementOrdered By: ever Garrett on 07-19-2024 Cholesterol in HDL [Mass/Vol] 93 mg/dL >40 [facility] Comment on above: The drugs N-Acetylcy steine and Metamizole may falsely depress this assay. Reference Range HDL <40 mg/dL Low HDL Cholesterol HDL >or= 60 mg/dL High HDL Cholesterol Immature granulocytes/100 WB C Auto (Bld)Ordered By: Alberto Garrett on 07-19-2024 Immature granulocytes/100 WBC (Bld) 0.400 % 0.0-0.9 [facility] Comment on above: IG% - Immature Granu locytes (promyelocytes, myelocytes and metamyelocytes) > 1% indicates that a LEFT SHIFT is Present. Internal Medicine Office Vis mindi 07-19-2024 Internal Medicine Office Visit [facility] [place] [address] [place] [address] OFFICE VISIT Date of Service: 07/19/24 MR#: [id number] Acct: [id number] Name: DARLYN ESCOBAR Rep #: [id number] : 1960 Provider: Dr. Alberto morgan MD Age/Sex: 64/F [place] [facility] [place] Status: Signed with Addenda ADDENDUM by GRACE Smith on 07/19/24 at 0936 Office Procedure Documentation entered by Ericka Smith MA 07/19/24 09:36: Immunizations Fluad Triv (65y up)(PF) 45 mcg (15 mcg x 3)/0.5 mL IM syringe Performing Provider: Alberto Garrett MD Performing Location: [facility] Administered by: Ericka Smith MA on 07/19/24 09:36 Dose Route Admin Location Dispensed Lot Number Expiration Date [facility] Man ufacturer 45 mcg IM Left Deltoid 0.5 mL [id number] 12/15/24 37053-444-68 [employer] VIS Given Date VIS Provided VIS Publication Date 07/19/24 Single Vaccine 24 Eligibility Eligibility Date Funding Source Not Applicable Date cc: * Signed Intake Vital Signs 04/06/24 08:00 07/19/24 09:16 Height 5 ft 6 in 5 ft 6 in Weight: 164 lb BMI 26.4 BP 128/80 H Blood Pressure Location Lt brachial Position Sitting Respiration 17 Pulse 90 Pulse Source Monitor Temp 98.4 F Temp Source Temporal Pulse Oximetry (%) 98 Oxygen Delivery Method room air Intake Visit Reasons: 6 M FU Chief Complaint: 6 M FU Is patient in pain?: No Allergies povidone-iodine (From Betadine) Allergy (Severe, Verified 07/19/24 09:14) Rash soap (From Betadine) Allergy (Severe, Verified 07/19/24 09:14) Rash Sulfa (Sulfonamide Antibiotics) Allergy (Unknown, Verified 07/19/24 09:14) Unknown Medications ???Medication ???Instructions ???Recorded ???Confirmed ???Type atorvastatin 10 mg tablet See Rx Instructions .Route 05/15/24 07/19/24 Rx .COMPLEX #90 tabs lisinopril 10 mg tablet See Rx Instructions .Route 05/15/24 07/19/24 Rx .COMPLEX #90 tabs metronidazole 0.75 % topical gel 1 applic topical QDAY #45 grams 07/19/24 07/19/24 Rx Have you fallen in the past year?: No Nurse's Note: pt requesting refill on her metronidazole gel for rosacea states that her previous PCP prescribed this for her. [facility] Medical History Hypercalcemia Health care maintenance Hyperlipidemia Colitis determined by colorectal biopsy Wears glasses Alcohol use Thyroid disease High cholesterol Restless legs Back pain Syncope Heartburn Non-smoker Leg cramps History of stress test Cardiology follow-up encounter Family history of early CAD Goiter Precordial pain Essential hypertension HTN (hypertension) Multiple thyroid nodules Pure hypercholesterolemia Abnormal cardiac CT angiography Surgical History Hx of colonoscopy History of appendectomy Status post partial thyroidectomy Family History Sister Hypertension Mother CAD (coronary artery disease) History of coronary artery bypass surgery Brother Hypertension Brother Sudden cardiac , Onset Age: 42 Hypertension Father Hypertension Myocardial infarction, Onset Age: 57 Social History household members: spouse current occupational status: unemployed Smoking Status: Never smoker alcohol intake: current alcohol intake frequency: holidays/special occasions only substance use type: does not use caffeine: Yes Type: coffee Number of servings: 1 what type of physical activity do you participate in: aerobics and weight training frequency: 5-6 times per week seatbelt use: always do you feel safe at home: Yes additional social history: - Edenilson [facility] Chief Complaint: 6 M FU Details: DARLYN ESCOBAR, is a 64 F who presents to the office today for chronic conditions. No acute concerns at this time. History of hypertension, blood pressure today at 128/80. She monitors her numbers at home and she states that her readings are typically less than 120 systolic. 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 No chest pain, palpitation or shortness of breath. Also history of hyperlipidemia on atorvastatin, no muscle pain or weakness reported. Taking medication as prescribed. Other chronic medical conditions are stable. ROS Const Constitutional: No body ache, chills, excessive sweating, fatigue, fever(s), frequent falls, headache(s), snoring, weight change, sleep problems, abnormal sleep pattern or change in appetite Eyes Eyes: No blurry vision, change in vision, bulging eyes, floaters, visual disturbances, eye pain or Light sensitivity ENT EN (more content not included)... Normal [facility] - Chemistry and C hemistry - challengeOrdered By: Alberto Garrett on 07-19-2024 AST [Catalytic activity/Vol] 19 U/L 15-37 [facility] Lipid Profileon 07-19-2024 Cholesterol [Mass/Vol] 169 mg/dL Normal 200 [facility] Comment on above: Result Comment: <200 mg/dL Desirable 200-240 mg/dL Borderline >240 mg/dL High Risk Performed By: #### L 500.4050, L500.4100, L100.0100 #### [facility] [address] [place], [address] Cholesterol in HDL [Mass/Vol] 93 mg/dL Normal [facility] Comment on above: Result Comment: The drugs N-Acetylcysteine and Metamizole may falsely depress this assay. Reference Range HDL <40 mg/dL Low HDL Cholesterol HDL >or= 60 mg/dL High HDL Cholesterol Performed By: #### L 500.4050, L500.4100, L100.0100 #### [facility] [address] [place], [address] Cholesterol in LDL [Mass/Vol] 64 mg/dL Normal 0-130 [facility] Comment on above: Performed By: #### L 500.4050, L500.4100, L100.0100 #### [facility] [address] [place], [address] Cholesterol in VLDL [Mass/Vol] 12 mg/dL Normal 5-40 [facility] Comment on above: Performed By: #### L 500.4050, L500.4100, L100.0100 #### [facility] [address] [place], [address] Triglyceride [Mass/Vol] 62 mg/dL Normal [facility] Comment on above: Result Comment: The drugs N-Acetylcysteine and Metamizole may falsely depress this assay. Serum Triglycerides Reference Interval Normal <150 mg/dL Borderline high 150 - 199 mg/dL High 200 - 499 mg/dL Very High > or = 500 mg/dL Performed By: #### L 500.4050, L500.4100, L100.0100 #### [facility] [address] [facility] [address] [place], [place], [id number] Low density lipoprotein (LDL ) cholesterol measurementOrdered By: Alberto Garrett on 07-19-2024 Cholesterol in LDL [Mass/Vol] 64 mg/dL 0-130 [facility] Lymphocytes Auto (Unsp spec) [#/Vol]Ordered By: Alberto Garrett on 07-19-2024 Lymphocytes (Bld) [#/Vol] 1.60 10*3/uL 0.83-4.51 [facility] Lymphocytes/100 WBC Auto (Un sp spec)Ordered By: Alberto Garrett on 07-19-2024 Lymphocytes/100 WBC (Bld) 20.2 % 19-41 [facility] MCV (mean corpuscular volume ) determinationOrdered By: Alberto Garrett on 07-19-2024 MCV (RBC) [Entitic vol] 90.9 fL 81-99 [facility] Mean corpuscular hemoglobin (MCH) determinationOrdered By: Alberto Garrett on 07-19-2024 MCH (RBC) [Entitic mass] 29.5 pg 27.0-32.0 [facility] Mean corpuscular hemoglobin concentration (MCHC) determinationOrdered By: Alberto Garrett on 07-19-2024 MCHC (RBC) [Mass/Vol] 32.5 g/dL 32-36 [facility] Mean platelet volume determi nationOrdered By: Alberto Garrett on 07-19-2024 Platelet mean volume (Bld) [Entitic vol] 10.4 fL 6.2-12.0 [facility] Monocyte percentageOrdered B y: Jeannemonicaargelia Garrett on 07-19-2024 Monocytes/100 WBC (Bld) 6.7 % 0-10 [facility] Neutrophil percentageOrdered By: Alberto Garrett on 07-19-2024 Neutrophils/100 WBC (Bld) 70.8 % High 47-70 [facility] Nucleated red blood cell per centageOrdered By: Alberto Garrett on 07-19-2024 Nucleated RBC/100 WBC (Bld) [Ratio] 0 % 0-5 [facility] Platelet countOrdered By: León Garrett on 07-19-2024 Platelets (Bld) [#/Vol] 345 10*3/uL 150-450 [facility] Potassium measurementOrdered By: Alberto Garrett on 07-19-2024 Potassium [Moles/Vol] 4.0 mmol/L 3.5-5.1 [facility] RBC Auto (Bld) [#/Vol]Ordere d By: Alberto Garrett on 07-19-2024 RBC (Bld) [#/Vol] 4.17 10*6/uL Low 4.2-5.4 [facility] Serum anion gap measurementO rdered By: Alberto Garrett on 07-19-2024 Anion gap [Moles/Vol] 8 mmol/L 5-15 [facility] Serum globulin measurementOr dered By: Alberto Garrett on 07-19-2024 Globulin (S) [Mass/Vol] 3.9 g/dL 2.2-4.2 [facility] Serum or plasma alanine diehl otransferase (ALT) measurementOrdered By: Alberto Garrett on 07-19-2024 ALT [Catalytic activity/Vol] 25 U/L 13-56 [facility] Serum or plasma albumin estephania urement (mass/volume)Ordered By: Alberto Garrett on 07-19-2024 Albumin [Mass/Vol] 3.6 g/dL 3.2-5.0 [facility] Serum or plasma alkaline jessica sphatase measurementOrdered By: Alberto Garrett on 07-19-2024 ALP [Catalytic activity/Vol] 69 U/L 45-117 [facility] Serum or plasma calcium estephania urement (mass/volume)Ordered By: Alberto Garrett on 07-19-2024 Calcium [Mass/Vol] 9.5 mg/dL 8.5-10.1 [facility] Serum or plasma cholesterol measurement (mass/volume)Ordered By: Alberto Garrett on 07-19-2024 Cholesterol [Mass/Vol] 169 mg/dL <200 [facility] Comment on above: <200 mg/dL Desirable 200-240 mg/dL Borderline >240 mg/dL High Risk Serum or plasma creatinine m easurement (mass/volume)Ordered By: Alberto Garrett on 07-19-2024 Creatinine [Mass/Vol] 0.87 mg/dL 0.55-1.02 [facility] Comment on above: The validity of the calculated GFR & GFRAA in patients over 70 years has not been determined. Clinical correlation is essential. Serum or plasma urea nitroge n measurement (mass/volume)Ordered By: Alberto Garrett on 07-19-2024 Urea nitrogen [Mass/Vol] 18 mg/dL 7-18 [facility] Sodium levelOrdered By: Jeanne Garrett on 07-19-2024 Sodium [Moles/Vol] 141 mmol/L 136-145 [facility] Total proteinOrdered By: Luis Armando Garrett on 07-19-2024 Protein [Mass/Vol] 7.5 g/dL 6.4-8.2 [facility] Triglycerides measurementOrd ered By: Alberto Garrett on 07-19-2024 Triglyceride [Mass/Vol] 62 mg/dL <199 [facility] Comment on above: The drugs N-Acetylcy steine and Metamizole may falsely depress this assay.Serum Triglycerides Reference Interval Normal <150 mg/dL Borderline high 150 - 199 mg/dL High 200 - 499 mg/dL Very High > or = 500 mg/dL Very low density lipoprotein (VLDL) cholesterol measurementOrdered By: Alberto Garrett on 07-19-2024 VLDL Cholesterol 12 mg/dL 5-40 [facility] White blood cell (WBC) count Ordered By: Alberto Garrett on 07-19-2024 WBC (Bld) [#/Vol] 7.9 10*3/uL 4.4-11.0 [facility] Internal Medicine Office Vis iton 04-06-2024 Internal Medicine Office Visit [facility] [address] [place] [address] [place] [address] OFFICE VISIT Date of Service: 04/06/24 MR#: [id number] Acct: [id number] Name: DARLYN ESCOBAR Rep #: [id number] 20 : 1960 Provider: ZEKE Hercules Age/Sex: 63/F [place] [facility] [place]: Signed Intake Vital Signs 01/19/24 09:29 04/06/24 08:00 Height 5 ft 6 in 5 ft 6 in Weight: 162 lb 160 lb BMI 26.1 25.8 BP 140/80 H 130/78 H Blood Pressure Location Rt brachial Lt brachial Position Sitting Sitting Respiration 16 14 Pulse 81 68 Pulse Source Monitor Monitor Temp 98.5 F 97.6 F L Temp Source Temporal Temporal Pulse Oximetry (%) 99 99 Oxygen Delivery Method room air room air Intake Visit Reasons: ACUTE POISON CHELA Chief Complaint: 6 M FU Clinical Educator Required: No Is patient in pain?: No Allergies povidone-iodine (From Betadine) Allergy (Severe, Verified 04/06/24 07:55) Rash soap (From Betadine) Allergy (Severe, Verified 04/06/24 07:55) Rash Sulfa (Sulfonamide Antibiotics) Allergy (Unknown, Verified 04/06/24 07:55) Unknown Medications ???Medication ???Instructions ???Recorded ???Confirmed ???Type atorvastatin 10 mg tablet See Rx Instructions .Route 02/14/24 04/06/24 Rx .COMPLEX #90 tabs lisinopril 10 mg tablet See Rx Instructions .Route 02/14/24 04/06/24 Rx .COMPLEX #90 tabs hydroxyzine HCl 25 mg tablet 25 mg PO TID PRN itching #30 tabs 04/06/24 04/06/24 Rx triamcinolone acetonide 0.1 % 1 applic topical TID #30 grams 04/06/24 04/06/24 Rx topical cream Have you fallen in the past year?: No Nurse's Note: States she has poison chela she was exposed wednesday morning, Arms are affected. States it is spreading. Has been using calamine lotion, and chela dry. Has had seeping States she just cleared up some that she had on her legs a couple weeks ago. [facility] Medical History Hypercalcemia Health care maintenance Hyperlipidemia Colitis determined by colorectal biopsy Wears glasses Alcohol use Thyroid disease High cholesterol Restless legs Back pain Syncope Heartburn Non-smoker Leg cramps History of stress test Cardiology follow-up encounter Family history of early CAD Goiter Precordial pain Essential hypertension HTN (hypertension) Multiple thyroid nodules Pure hypercholesterolemia Abnormal cardiac CT angiography Surgical History Hx of colonoscopy History of appendectomy Status post partial thyroidectomy Family History Sister Hypertension Mother CAD (coronary artery disease) History of coronary artery bypass surgery Brother Hypertension Brother Sudden cardiac , Onset Age: 42 Hypertension Father Hypertension Myocardial infarction, Onset Age: 57 Social History household members: spouse current occupational status: unemployed Smoking Status: Never smoker alcohol intake: current alcohol intake frequency: holidays/special occasions only substance use type: does not use caffeine: Yes Type: coffee Number of servings: 1 what type of physical activity do you participate in: aerobics and weight training frequency: 5-6 times per week seatbelt use: always do you feel safe at home: Yes additional social history: - [facility]ilson [facility] HPI Chief Complaint: 6 M FU Details: DARLYN ESCOBAR, is a 63 F who presents to the office today for rash. She states that she was clearing weeds and doing her shrubs and is pretty certain she was in it. She picked up a pile of clippings and so she knows there was exposure. ROS Const Constitutional: No body ache, chills, excessive sweating, fatigue, fever(s), frequent falls, headache(s), snoring, weakness, sleep problems or change in appetite Eyes Eyes: No blurry vision, change in vision, eye pain or Light sensitivity ENT ENT: No abnormal hearing, ear or mastoid pain, tinnitus, nasal congestion, headache(s), neck pain or sore throat Resp Respiratory: No cough, shortness of breath, snoring or wheezing Cardio Cardiology: No chest pain at rest, chest pain with exertion, excessive sweating, shortness of breath, dyspnea on exertion, lightheadedness, orthopnea or palpitations Gastro GI: No abdominal pain, change in bowel habits, constipation, cramping, diarrhea, nausea/dyspepsia or vomiting Genitourinary-Female: No burning urination, painful urination, urinary incontinence, urinary frequency, abnormal vaginal bleeding or pelvic pain Musc Musculoskeletal: No abnormal gait, joint pain, back pain, limited range of motion, neck pain or numbness Skin Skin: Positive for redness and rash; (more content not included)... Normal [facility] Absolute lymphocyte countOrd ered By: Alberto Garrett on 07-19-2023 Lymphocytes Auto (Unsp spec) [#/Vol] 1.44 10*3/uL 0.83-4.51 [facility] Basophil percentageOrdered B y: Jeannemonicaargelia Garrett on 07-19-2023 Basophils/100 WBC (Bld) 0.6 % 0-1 [facility] Bilirubin [Mass/Vol] 0.70 mg/dL 0.20-1.00 [facility] Comment on above: For patients on eltr ombopag therapy, use of Dimension Imperial TBIL is not recommended. Chloride [Moles/Vol] 110 mmol/L 98-107 [facility] Cholesterol [Mass/Vol] 177 mg/dL <200 [facility] Comment on above: <200 mg/dL Desirable 200-240 mg/dL Borderline >240 mg/dL High Risk Eosinophils/100 WBC (Bld) 1.1 % 0-5 [facility] Glucose [Mass/Vol] 92 mg/dL 74-106 [facility] Neutrophils (Bld) [#/Vol] 4.4 10*3/uL 2.0-7.7 [facility] Neutrophils/100 WBC (Bld) 69.4 % 47-70 [facility] Potassium [Moles/Vol] 4.0 mmol/L 3.5-5.1 [facility] Protein [Mass/Vol] 7.4 g/dL 6.4-8.2 [facility] Sodium [Moles/Vol] 140 mmol/L 136-145 [facility] Triglyceride [Mass/Vol] 99 mg/dL <199 [facility] Comment on above: The drugs N-Acetylcy steine and Metamizole may falsely depress this assay.Serum Triglycerides Reference Interval Normal <150 mg/dL Borderline high 150 - 199 mg/dL High 200 - 499 mg/dL Very High > or = 500 mg/dL WBC (Bld) [#/Vol] 6.3 10*3/uL 4.4-11.0 [facility] Blood erythrocytes count (nu mber/volume)Ordered By: Alberto Garrett on 07-19-2023 RBC (Bld) [#/Vol] 4.11 10*6/uL 4.2-5.4 [facility] Blood hemoglobin measurement (mass/volume)Ordered By: Alberto Garrett on 07-19-2023 Hemoglobin (Bld) [Mass/Vol] 12.1 g/dL 12.0-15.0 [facility] Blood lymphocytes/100 leukoc ytesOrdered By: Alberto Garrett on 07-19-2023 Lymphocytes/100 WBC (Bld) 22.9 % 19-41 [facility] Blood monocytes/100 leukocyt esOrdered By: Alberto Garrett on 07-19-2023 Monocytes/100 WBC (Bld) 5.7 % 0-10 [facility] Blood platelet mean volumeOr dered By: Alberto Garrett on 07-19-2023 Platelet mean volume (Bld) [Entitic vol] 10.4 fL 6.2-12.0 [facility] Determination of erythrocyte mean corpuscular volume (MCV)Ordered By: Alberto Garrett on 07-19-2023 MCV (RBC) [Entitic vol] 92.2 fL 81-99 [facility] Hematocrit Auto (Bld) [Volum e fraction]Ordered By: Alberto Garrett on 07-19-2023 Hematocrit (Bld) [Volume fraction] 37.9 % 37-47 [facility] - Chemistry and C hemistry - challengeOrdered By: Alberto Garrett on 07-19-2023 ALP [Catalytic activity/Vol] 72 U/L 45-117 [facility] ALT [Catalytic activity/Vol] 37 U/L 13-56 [facility] CO2 [Moles/Vol] 25.0 mmol/L 21.0-32.0 [facility] Globulin (S) [Mass/Vol] 3.8 g/dL 2.2-4.2 [facility] Urea nitrogen/Creatinine [Mass ratio] 17.8 mg/mg 10-20 [facility] - Hematology and Cell countsOrdered By: Alberto Garrett on 07-19-2023 Erythrocyte distribution width (RBC) [Entitic vol] 42.6 fL 35.1-43.9 [facility] Erythrocyte distribution width (RBC) [Ratio] 12.5 % 11.6-14.6 [facility] Immature granulocytes/100 WBC (Bld) 0.300 % 0.0-0.9 [facility] Comment on above: IG% - Immature Granu locytes (promyelocytes, myelocytes and metamyelocytes) > 1% indicates that a LEFT SHIFT is Present. MCH (RBC) [Entitic mass] 29.4 pg 27.0-32.0 [facility] Nucleated RBC/100 WBC (Bld) [Ratio] 0 % 0-5 [facility] MCHC Auto (RBC) [Mass/Vol]Or dered By: Alberto Garrett on 07-19-2023 MCHC (RBC) [Mass/Vol] 31.9 g/dL 32-36 [facility] No Panel InformationOrdered By: Alberto Garrett on 07-19-2023 Estimated GFR (MDRD) Amer 81 mL/min >60 [facility] Comment on above: GFR Calc Estimated GFR (MDRD) Non-Af Amer 67 mL/min >60 [facility] Comment on above: Non- GFR Calc Platelets bldOrdered By: Luis Armando Garrett on 07-19-2023 Platelets (Bld) [#/Vol] 306 10*3/uL 150-450 [facility] Serum or plasma albumin estephania urement (mass/volume)Ordered By: Alberto Garrett on 07-19-2023 Albumin [Mass/Vol] 3.6 g/dL 3.2-5.0 [facility] Serum or plasma albumin/glob ulin mass ratioOrdered By: Alberto Garrett on 07-19-2023 Albumin/Globulin [Mass ratio] 0.9 {ratio} 0.9-2.4 [facility] Serum or plasma calcium estephania urement (mass/volume)Ordered By: Alberto Garrett on 07-19-2023 Calcium [Mass/Vol] 9.4 mg/dL 8.5-10.1 [facility] Serum or plasma cholesterol in HDL measurement (mass/volume)Ordered By: Alberto Garrett on 07-19-2023 Cholesterol in HDL [Mass/Vol] 84 mg/dL >40 [facility] Comment on above: The drugs N-Acetylcy steine and Metamizole may falsely depress this assay. Reference Range HDL <40 mg/dL Low HDL Cholesterol HDL >or= 60 mg/dL High HDL Cholesterol Serum or plasma cholesterol in VLDL measurement (mass/volume)Ordered By: Alberto Garrett on 07-19-2023 Cholesterol in VLDL [Mass/Vol] 20 mg/dL 5-40 [facility] Serum or plasma creatinine m easurement (mass/volume)Ordered By: Alberto Garrett on 07-19-2023 Creatinine [Mass/Vol] 0.90 mg/dL 0.55-1.02 [facility] Comment on above: The validity of the calculated GFR & GFRAA in patients over 70 years has not been determined. Clinical correlation is essential. Serum or plasma low density lipoprotein (LDL) cholesterol measurement (mass/volume)Ordered By: Alberto Garrett on 07-19-2023 Cholesterol in LDL [Mass/Vol] 73 mg/dL 0-130 [facility] Serum or plasma urea nitroge n measurement (mass/volume)Ordered By: Alberto Garrett on 07-19-2023 Urea nitrogen [Mass/Vol] 16 mg/dL 7-18 [facility] Thin prep Papanicolaou smear with manual screeningOrdered By: Alberto Garrett on 07-19-2023 Thin prep Papanicolaou smear with manual screening 30 U/L 15-37 [facility] Thin prep Papanicolaou smear with manual screening 5 5-15 [facility] Basophil percentageon 2021 Chloride [Moles/Vol] 110 mmol/L 98-107 [facility] Work Phone: Glucose [Mass/Vol] 100 mg/dL 74-106 [facility] Work Phone: Comment on above: Fasting Glucose resu lt from 100 to 125 mg/dL suggests IMPAIRED HOMEOSTASIS per A.D.A. criteria. Potassium [Moles/Vol] 4.3 mmol/L 3.5-5.1 [facility] Work Phone: Sodium [Moles/Vol] 141 mmol/L 136-145 [facility] Work Phone: Laboratory - Chemistry and C hemistry - challengeon 02-26-2022 CO2 [Moles/Vol] 28.0 mmol/L 21.0-32.0 [facility] Work Phone: Urea nitrogen/Creatinine [Mass ratio] 20.1 mg/mg 10-20 [facility] Work Phone: No Panel Informationon 02-26 Estimated GFR (MDRD) Amer 82 mL/min >60 [facility] Work Phone: Comment on above: GFR Calc Estimated GFR (MDRD) Non-Af Amer 67 mL/min >60 [facility] Work Phone: Comment on above: Non- GFR Calc Serum or plasma calcium estephania urement (mass/volume)on 02-26-2022 Calcium [Mass/Vol] 9.3 mg/dL 8.5-10.1 [facility] Work Phone: Serum or plasma creatinine m easurement (mass/volume)on 02-26-2022 Creatinine [Mass/Vol] 0.90 mg/dL 0.55-1.02 [facility] Work Phone: Comment on above: The validity of the calculated GFR & GFRAA in patients over 70 years has not been determined. Clinical correlation is essential. Serum or plasma urea nitroge n measurement (mass/volume)on 02-26-2022 Urea nitrogen [Mass/Vol] 18 mg/dL 03-02 [facility] Work Phone: Thin prep Papanicolaou smear with manual screeningon 02-26-2022 Thin prep Papanicolaou smear with manual screening 3 12-28 [facility] Work Phone: No Panel Informationon 12-25 Pap Smear Test Ordered See comment [facility] Work Phone: Comment on above: IGP, Aptima HPV,rfx 16/18,45Interpretation:NEGATIVE FOR INTRAEPITHELIAL LESION AND MALIGNANCYCELLULAR CHANGES ASSOCIATED WITH ATROPHY ARE PRESENT.Specimen Adequacy:Satisfactory for evaluation. Endocervical and/or squamousmetaplastic cells (endocervical component) are present.Comments:The pap smear is a screening test designated to aid in thedetection of pre-malignant and malignant conditions of theuterine cervix. It is not a diagnostic procedure and shouldnot be used as the sole means of detecting cervical cancer. Both false-positive and false-negative reports do occur. This liquid based ThinPrep(R) pap test was screened with the use of an image guided system. Performed by Sally Ca Clay Plant Treater (ASCP) This nucleic acid amplification test detects fourteen high-risk HPV types (16,18,31,33,35,39,45,51,52,56,58,59,66,68) without differentiation.HPV Results: HPV Aptima: Negative ___ TESTING PERFORMED AT [facility]. ORIGINAL REPORT ON FILE IN LAB CONTAINS ADDITIONAL TEST SITE INFORMATION. Pathology report final diagnosis Narrative Not Reportable [facility] Work Phone: Absolute lymphocyte counton 09-02-2021 Lymphocytes Auto (Unsp spec) [#/Vol] 1.99 10*3/uL 0.83-4.51 [facility] Work Phone: Basophil percentageon 2021 Basophils/100 WBC (Bld) 0.6 % 0-1 [facility] Work Phone: Bilirubin [Mass/Vol] 0.60 mg/dL 0.20-1.00 [facility] Work Phone: Comment on above: For patients on eltr ombopag therapy, use of Dimension [place] TBIL is not recommended. Chloride [Moles/Vol] 104 mmol/L 98-107 [facility] Work Phone: Cholesterol [Mass/Vol] 175 mg/dL <200 [facility] Work Phone: Comment on above: <200 mg/dL Desirable 200-240 mg/dL Borderline >240 mg/dL High Risk Eosinophils/100 WBC (Bld) 1.8 % 0-5 [facility] Work Phone: Glucose [Mass/Vol] 82 mg/dL 74-106 [facility] Work Phone: Neutrophils (Bld) [#/Vol] 3.8 10*3/uL 2.0-7.7 [facility] Work Phone: Neutrophils/100 WBC (Bld) 59.2 % 47-70 [facility] [facility] Work Phone: Potassium [Moles/Vol] 4.5 mmol/L 3.5-5.1 [facility] Work Phone: Protein [Mass/Vol] 7.7 g/dL 6.4-8.2 [facility] Work Phone: Sodium [Moles/Vol] 139 mmol/L 136-145 [facility] Work Phone: Triglyceride [Mass/Vol] 72 mg/dL [facility] Work Phone: [phone] Comment on above: The drugs N-Acetylcy steine and Metamizole may falsely depress this assay.Serum Triglycerides Reference Interval Normal <150 mg/dL Borderline high 150 - 199 mg/dL High 200 - 499 mg/dL Very High > or = 500 mg/dL WBC (Bld) [#/Vol] 6.5 10*3/uL 4.4-11.0 [facility] Work Phone: [phone] Blood erythrocytes count (nu mber/volume)on 09-02-2021 RBC (Bld) [#/Vol] 4.27 10*6/uL 4.2-5.4 [facility] Work Phone: [phone] Blood hemoglobin measurement (mass/volume)on 09-02-2021 Hemoglobin (Bld) [Mass/Vol] 12.5 g/dL 12.0-15.0 [facility] Work Phone: [phone] Blood lymphocytes/100 leukoc yteson 09-02-2021 Lymphocytes/100 WBC (Bld) 30.6 % 19-41 [facility] Work Phone: [phone] Blood monocytes/100 leukocyt eson 09-02-2021 Monocytes/100 WBC (Bld) 7.5 % 0-10 [facility] Work Phone: [phone] Blood platelet mean volumeon 09-02-2021 Platelet mean volume (Bld) [Entitic vol] 10.7 fL 6.2-12.0 [facility] Work Phone: [phone] Determination of erythrocyte mean corpuscular volume (MCV)on 09-02-2021 MCV (RBC) [Entitic vol] 91.8 fL 81-99 [facility] Work Phone: [phone] Hematocrit Auto (Bld) [Volum e fraction]on 09-02-2021 Hematocrit (Bld) [Volume fraction] 39.2 % 37-47 [facility] Work Phone: [phone] Laboratory - Chemistry and C hemistry - challengeon 09-02-2021 ALP [Catalytic activity/Vol] 81 U/L 45-117 [facility] Work Phone: [phone] ALT [Catalytic activity/Vol] 32 U/L 13-56 [facility] Work Phone: [phone] CO2 [Moles/Vol] 30.0 mmol/L 21.0-32.0 [facility] Work Phone: [phone] Globulin (S) [Mass/Vol] 4.0 g/dL 2.2-4.2 [facility] Work Phone: [phone] Urea nitrogen/Creatinine [Mass ratio] 21.3 mg/mg 10-20 [facility] Work Phone: [phone] Laboratory - Hematology and Cell countson 09-02-2021 Erythrocyte distribution width (RBC) [Entitic vol] 41.1 fL 35.1-43.9 [facility] Work Phone: [phone] Erythrocyte distribution width (RBC) [Ratio] 12.4 % 11.6-14.6 [facility] Work Phone: [phone] Immature granulocytes/100 WBC (Bld) 0.300 % 0.0-0.9 [facility] Work Phone: [phone] Comment on above: IG% - Immature Granu locytes (promyelocytes, myelocytes and metamyelocytes) > 1% indicates that a LEFT SHIFT is Present. MCH (RBC) [Entitic mass] 29.3 pg 27.0-32.0 [facility] Work Phone: [phone] Nucleated RBC/100 WBC (Bld) [Ratio] 0 % 0-5 [facility] Work Phone: [phone] MCHC Auto (RBC) [Mass/Vol]on 09-02-2021 MCHC (RBC) [Mass/Vol] 31.9 g/dL 32-36 [facility] Work [facility]: [phone] Panel Informationon 09-02 Estimated GFR (MDRD) Amer 77 mL/min >60 [facility] Work Phone: [phone] Comment on above: GFR Calc Estimated GFR (MDRD) Non-Af Amer 64 mL/min >60 [facility] Work Phone: Comment on above: Non- GFR Calc Platelets bldon 09-02-2021 Platelets (Bld) [#/Vol] 325 10*3/uL 150-450 [facility] Work Phone: Serum or plasma albumin estephania urement (mass/volume)on 09-02-2021 Albumin [Mass/Vol] 3.7 g/dL 3.2-5.0 [facility] Work Phone: [phone] Serum or plasma albumin/glob ulin mass ratioon 09-02-2021 Albumin/Globulin [Mass ratio] 0.9 {ratio} 0.9-2.4 [facility] Work Phone: Serum or plasma calcium estephania urement (mass/volume)on 09-02-2021 Calcium [Mass/Vol] 9.3 mg/dL 8.5-10.1 [facility] Work Phone: Serum or plasma cholesterol in HDL measurement (mass/volume)on 09-02-2021 Cholesterol in HDL [Mass/Vol] 77 mg/dL [facility] Work Phone: Comment on above: The drugs N-Acetylcy steine and Metamizole may falsely depress this assay. Reference Range HDL <40 mg/dL Low HDL Cholesterol HDL >or= 60 mg/dL High HDL Cholesterol Serum or plasma cholesterol in VLDL measurement (mass/volume)on 09-02-2021 Cholesterol in VLDL [Mass/Vol] 14 mg/dL 5-40 [facility] Work Phone: [phone] Serum or plasma creatinine m easurement (mass/volume)on 09-02-2021 Creatinine [Mass/Vol] 0.94 mg/dL 0.55-1.02 [facility] Work Phone: Comment on above: The validity of the calculated GFR & GFRAA in patients over 70 years has not been determined. Clinical correlation is essential. Serum or plasma low density lipoprotein (LDL) cholesterol measurement (mass/volume)on 09-02-2021 Cholesterol in LDL [Mass/Vol] 84 mg/dL 0-130 [facility] Work Phone: [phone] Serum or plasma urea nitroge n measurement (mass/volume)on 09-02-2021 Urea nitrogen [Mass/Vol] 20 mg/dL 7-18 [facility] Work Phone: [phone] Thin prep Papanicolaou smear with manual screeningon 09-02-2021 Thin prep Papanicolaou smear with manual screening 21 U/L 15-37 [facility] Work Phone: [phone] Thin prep Papanicolaou smear with manual screening 5 5-15 [facility] Work Phone: [phone] Vital Signs Date Time Vital Sign Value Performing Clinician Faci lity 01-19-2025 08:05-0400 Body height 167.[address] Alberto Garrett MD Work Phone: [facility] 01-19-2025 08:05-0400 Body mass index (BMI) [Ratio] 26.3 kg/m2 Dr. Alberto Garrett MD Work Phone: [facility] 01-19-2025 08:05-0400 Body temperature 97.1 [degF] Dr. Alberto Garrett MD Work Phone: [facility] 01-19-2025 08:05-0400 Body weight 73.[address] Alberto Garrett MD Work Phone: [facility] 01-19-2025 08:05-0400 Diastolic blood pressure 80 mm[Hg] Dr. Alberto Garrett MD Work Phone: [facility] 01-19-2025 08:05-0400 Heart rate 92 /min Dr. Alberto Garrett MD Work Phone: [facility] 01-19-2025 08:05-0400 Respiratory rate 16 /min Dr. Alberto Garrett MD Work Phone: [facility] 01-19-2025 08:05-0400 SaO2% (BldA) [Mass fraction] 96 % Dr. Alberto Garrett MD Work Phone: [facility] 01-19-2025 08:05-0400 Systolic blood pressure 132 mm[Hg] Dr. Alberto Garrett MD Work Phone: [facility] 12-27-2024 08:14-0400 Body height 167.[address] Alberto Garrett MD Work Phone: [facility] 12-27-2024 08:14-0400 Body mass index (BMI) [Ratio] 26.4 kg/m2 Dr. Alberto Garrett MD Work Phone: [facility] 12-27-2024 08:14-0400 Body temperature 97.5 [degF] Dr. Alberto Garrett MD Work Phone: [facility] 12-27-2024 08:14-0400 Body weight 74.[address] Alberto Garrett MD Work Phone: [facility] 12-27-2024 08:14-0400 Diastolic blood pressure 82 mm[Hg] Dr. Alberto Garrett MD Work Phone: [facility] 12-27-2024 08:14-0400 Heart rate 67 /min Dr. Alberto Garrett MD Work Phone: [facility] 12-27-2024 08:14-0400 Respiratory rate 16 /min Dr. Alberto Garrett MD Work Phone: [facility] 12-27-2024 08:14-0400 Systolic blood pressure 126 mm[Hg] Dr. Alberto Garrett MD Work Phone: [facility] 07-19-2024 09:16-0500 Body height 167.[address] Alberto Garrett MD Work Phone: [facility] 07-19-2024 09:16-0500 Body mass index (BMI) [Ratio] 26.4 kg/m2 Dr. Alberto Garrett MD Work Phone: [facility] 07-19-2024 09:16-0500 Body temperature 98.4 [degF] Dr. Alberto Garrett MD Work Phone: [facility] 07-19-2024 09:16-0500 Body weight 74.[address] Alberto Garrett MD Work Phone: [facility] 07-19-2024 09:16-0500 Diastolic blood pressure 80 mm[Hg] Dr. Alberto Garrett MD Work Phone: [facility] 07-19-2024 09:16-0500 Heart rate 90 /min Dr. Alberto Garrett MD Work Phone: [facility] 07-19-2024 09:16-0500 Respiratory rate 17 /min Dr. Alberto Garrett MD Work Phone: [facility] 07-19-2024 09:16-0500 SaO2% (BldA) [Mass fraction] 98 % Dr. Alberto Garrett MD Work Phone: [facility] 07-19-2024 09:16-0500 Systolic blood pressure 128 mm[Hg] Dr. Alberto Garrett MD Work Phone: [facility] 07-19-2023 10:02-0500 Body height 167.[address] Alberto Garrett Work Phone: [facility] 07-19-2023 10:02-0500 Body mass index (BMI) [Ratio] 26.2 kg/m2 Dr. Alberto Garrett Work Phone: [facility] 07-19-2023 10:02-0500 Body temperature 97.5 [degF] Dr. Alberto Garrett Work Phone: [facility] 07-19-2023 10:02-0500 Body weight 73.[address] Alberto Garrett Work Phone: [facility] 07-19-2023 10:02-0500 Diastolic blood pressure 80 mm[Hg] Dr. Alberto Garrett Work Phone: [facility] 07-19-2023 10:02-0500 Heart rate 74 /min Dr. Alberto Garrett Work Phone: [facility] 07-19-2023 10:02-0500 Respiratory rate 16 /min Dr. Alberto Garrett Work Phone: [facility] 07-19-2023 10:02-0500 SaO2% (BldA) [Mass fraction] 97 % Dr. Alberto Garrett Work Phone: [facility] 07-19-2023 10:02-0500 Systolic blood pressure 136 mm[Hg] Dr. Alberto Garrett Work Phone: [facility] 02-26-2022 12:55-0400 Body height 167.[address] Alberto Garrett Work Phone: [facility] Work Phone: 02-26-2022 12:55-0400 Body mass index (BMI) [Ratio] 27.4 kg/m2 Dr. Alberto Garrett Work Phone: [facility] Work Phone: 02-26-2022 12:55-0400 Body temperature 97 [degF] Dr. Alberto Garrett Work Phone: [facility] Work Phone: 02-26-2022 12:55-0400 Body weight 77.[address] Alberto Garrett Work Phone: [facility] Work Phone: 02-26-2022 12:55-0400 Diastolic blood pressure 78 mm[Hg] Dr. Alberto Garrett Work Phone: [facility] Work Phone: 02-26-2022 12:55-0400 Heart rate 79 /min Dr. Alberto Garrett Work Phone: [facility] Work Phone: 02-26-2022 12:55-0400 Respiratory rate 16 /min Dr. Alberto Garrett Work Phone: [facility] Work Phone: 02-26-2022 12:55-0400 SaO2% (BldA) [Mass fraction] 97 % Dr. Alberto Garrett Work Phone: [facility] Work Phone: 02-26-2022 12:55-0400 Systolic blood pressure 126 mm[Hg] Dr. Alberto Garrett Work Phone: [facility] Work Phone: 12-25-2021 10:11-0400 Body mass index (BMI) [Ratio] 27.3 kg/m2 Dr. Alberto Garrett Work Phone: [facility] Work Phone: 12-25-2021 10:11-0400 Body weight 76.[address] Alberto Garrett Work Phone: [facility] Work Phone: 12-25-2021 10:11-0400 Diastolic blood pressure 70 mm[Hg] Dr. Alberto Garrett Work Phone: [facility] Work Phone: 12-25-2021 10:11-0400 Systolic blood pressure 124 mm[Hg] Dr. Alberto Garrett Work Phone: [facility] Work Phone: 12-25-2021 10:11-0400 Body height 167.[address] Alberto Garrett Work Phone: [facility] Work Phone: 12-25-2021 10:11-0400 Body mass index (BMI) [Ratio] 27.3 kg/m2 Dr. Alberto Garrett Work Phone: [facility] Work Phone: 12-25-2021 10:11-0400 Body weight 76.[address] Alberto Garrett Work Phone: [facility] Work Phone: 12-25-2021 10:11-0400 Diastolic blood pressure 70 mm[Hg] Dr. Alberto Garrett Work Phone: [facility] Work Phone: 12-25-2021 10:11-0400 Systolic blood pressure 124 mm[Hg] Dr. Alberto Garrett Work Phone: [facility] Work Phone: 11-18-2021 14:36-0400 Body mass index (BMI) [Ratio] 27.4 kg/m2 Dr. Alberto Garrett Work Phone: [facility] Work Phone: 11-18-2021 14:36-0400 Body temperature 98 [degF] Dr. Alberto Garrett Work Phone: [facility] Work Phone: 11-18-2021 14:36-0400 Body weight 77.[address] Alberto Garrett Work Phone: [facility] Work Phone: 11-18-2021 14:36-0400 Diastolic blood pressure 82 mm[Hg] Dr. Alberto Garrett Work Phone: [facility] Work Phone: 11-18-2021 14:36-0400 Heart rate 73 /min Dr. Alberto Garrett Work Phone: [facility] Work Phone: 11-18-2021 14:36-0400 Respiratory rate 14 /min Dr. Alberto Garrett Work Phone: [facility] Work Phone: 11-18-2021 14:36-0400 SaO2% (BldA) [Mass fraction] 97 % Dr. Alberto Garrett Work Phone: [facility] Work Phone: 11-18-2021 14:36-0400 Systolic blood pressure 148 mm[Hg] Dr. Alberto Garrett Work Phone: [facility] Work Phone: 11-18-2021 14:36-0400 Body mass index (BMI) [Ratio] 27.4 kg/m2 Dr. Alberto Garrett Work Phone: [facility] Work Phone: 11-18-2021 14:36-0400 Body temperature 98 [degF] Dr. Alberto Garrett Work Phone: [facility] Work Phone: 11-18-2021 14:36-0400 Body weight 77.[address] Alberto Garrett Work Phone: [facility] Work Phone: 11-18-2021 14:36-0400 Diastolic blood pressure 82 mm[Hg] Dr. Alberto Garrett Work Phone: [facility] Work Phone: 11-18-2021 14:36-0400 Heart rate 73 /min Dr. Alberto Garrett Work Phone: [facility] Work Phone: 11-18-2021 14:36-0400 Respiratory rate 14 /min Dr. Alberto Garrett Work Phone: [facility] Work Phone: 11-18-2021 14:36-0400 SaO2% (BldA) [Mass fraction] 97 % Dr. Alberto Garrett Work Phone: [facility] Work Phone: 11-18-2021 14:36-0400 Systolic blood pressure 148 mm[Hg] Dr. Alberto Garrett Work Phone: [facility] Work Phone: 10-30-2021 10:08-0400 Body temperature 96.9 [degF] Dr. Alberto Garrett Work Phone: [facility] Work Phone: 10-30-2021 10:08-0400 Diastolic blood pressure 76 mm[Hg] Dr. Alberto Garrett Work Phone: [facility] Work Phone: 10-30-2021 10:08-0400 Heart rate 68 /min Dr. Alberto Garrett Work Phone: [facility] Work Phone: 10-30-2021 10:08-0400 Respiratory rate 16 /min Dr. Alberto Garrett Work Phone: [facility] Work Phone: 10-30-2021 10:08-0400 SaO2% (BldA) [Mass fraction] 100 % Dr. Alberto Garrett Work Phone: [facility] Work Phone: 10-30-2021 10:08-0400 Systolic blood pressure 144 mm[Hg] Dr. Alberto Garrett Work Phone: [facility] Work Phone: 10-30-2021 07:25-0400 Body mass index (BMI) [Ratio] 27 kg/m2 Dr. Alberto Garrett Work Phone: [facility] Work Phone: 10-30-2021 07:25-0400 Body weight [address] Alberto Garrett Work Phone: [facility] Work Phone: Encounters Encounter Date Encounter Type Care Provider Facility Start: 02-15-2025 ambulatory Alberto Huitroni ty:[facility] Start: 01-23-[address] Ifrah Garrett MD -Physical Therapy Work Phone: Start: 01-23-2025 ambulatory Alberto Huitroni ty:[facility] Start: 01-19-2025 End: 01-19-[address] Alberto Garrett MD -[facility] Work Phone: Start: 01-19-2025 End: 01-19-[address] Alberto Garrett MD Work Phone: [facility] Work Phone: Start: 01-19-2025 End: 01-19-2025 ambulatory Alberto Castaonamna Facility:[facility] Start: 12-27-2024 End: 12-27-2024 Patient encounter procedure Brandan ALANIS -[facility] Work Phone: Start: 12-27-2024 End: 12-27-[address] Alberto Garrett MD Work Phone: [facility] Work Phone: Start: 12-21-2024 Non-patient / Non-visit Dr. Christopher Phillips MD -[facility] Start: 12-21-2024 ambulatory Alberto Huitroni ty:[facility] Start: 12-21-2024 Registered Referred Self Referred -[facility] Work Phone: Start: 10-19-2024 End: 10-19-[address] Alberto Garrett MD Work Phone: [facility] Work Phone: Start: 10-19-2024 End: 10-19-[address] Alberto Garrett MD -Outpatient Breast Imaging Work Phone: Start: 10-19-2024 End: 10-19-2024 ambulatory Alberto Garrett Facility:[facility] Start: 07-19-2024 Encounter for genera l adult medical examination without abnormal findings Alberto Garrett [facility] Start: 07-19-2024 End: 07-19-[address] Alberto Garrett MD -[facility] Work Phone: Start: 07-19-2024 End: 07-19-[address] Alberto Garrett MD [facility] Start: 07-19-2024 End: 07-19-2024 ambulatory Alberto Garrett [place] Start: 07-19-2024 End: 07-19-2024 ambulatory Alberto Garrett Facility:[facility] Start: 04-06-2024 End: 04-06-2024 ambulatory Brandan ALANIS [place] Start: 08-26-2023 End: 08-26-[address] Alberto Garrett Work Phone: [facility] Work Phone: Start: 08-26-2023 End: 08-26-[address] Alberto Garrett Work Phone: [facility] Work Phone: Start: 07-19-[address] Alberto Garrett Work Phone: [facility] Start: 07-19-2023 End: 07-19-[address] Alberto Garrett Work Phone: [facility] Work Phone: Start: 07-19-2023 End: 07-19-2023 Encounter for general adult medical examination without abnormal findings Dr. Alberto Garrett Work Phone: [facility] Start: 07-19-2023 End: 07-19-[address] Alberto Garrett Work Phone: [facility] Work Phone: Start: 07-16-2022 End: 07-16-2022 ambulatory [facility] Work Phone: Start: 07-16-2022 End: 07-16-2022 Patient encounter procedure [facility] Start: 02-26-2022 End: 02-26-[address] Alberto Garrett Work Phone: [facility] Start: 12-25-2021 End: 12-25-[address] Alberto Garrett Work Phone: [facility] Start: 11-18-2021 End: 11-18-[address] Alberto Garrett Work Phone: [facility] Start: 10-30-2021 Non-patient / Non-visit Dr. Alberto Garrett Work Phone: [facility] Start: 10-30-2021 End: 10-30-2021 Admission to same day surgery center Dr. Alberto Garrett Work Phone: [facility] Start: 09-12-2021 End: 09-12-[address] Alberto Garrett Work Phone: [facility] Start: 09-02-2021 End: 09-02-[address] Alberto Garrett Work Phone: [facility] Procedures Date Procedure Procedure Detail Performing Clinician Start: 01-19-2025 End: 01-19-2025 XR knee, [address] Alberto Garrett MD Work Phone: Start: 10-19-2024 Screening mammography Zoltan Garrett MD Work Phone: Start: 08-26-2023 Dual energy X-ray absorptiometry Dr. Alberto Garrett Work Phone: Start: 08-26-2023 Screening mammography Zoltan Garrett Work Phone: Start: 07-16-2022 Screening mammography Plan of Treatment Date Care Activity Detail Author Start: 01-19-2025 XR Knee 3 Views [facility] Start: 01-19-2025 XR knee, 3 views Knee 3 Views [facility] Start: 01-19-2025 Basic metabolic 2008 panel with ionized calcium - Serum or Plasma [facility] Start: 10-30-2021 Colonoscopy w/biopsy single/multiple COLONOSCOPY AND BIOPSY [facility] Work Phone: Start: 10-30-2021 Colsc flx w/rmvl of tumor polyp lesion snare tq COLONOSCOPY W/LESION REMOVAL [facility] Work Phone: Anion gap in Serum o r Plasma [facility] BUN/Creatinine ratio [facility] Calcium [Mass/volume ] in Serum or Plasma [facility] Carbon dioxide, tota l [Moles/volume] in Central venous blood [facility] Creatinine [Mass/vol ume] in Serum or Plasma [facility] CT angiography of coronary arteries [facility] DXA Bone [Mass/Area] Bone density [facility] Glucose [Mass/volume ] in Serum or Plasma [facility] Measurement of renal function [facility] MG Breast - bilatera l Screening [facility] Work Phone: MG Breast - bilatera l Screening [facility] Patient referral [facility] Work Phone: Potassium measurement [facility] Serum chloride measurement [facility] Sodium measurement [facility] Urea nitrogen [Mass/volume] in Serum or Plasma [facility] Immunizations Immunization Date Immunization Notes Care Provider Fa cili 07-19-2024 Seasonal trivalent influenza vaccine, adjuvanted, preservative free Dr. Alberto Garrett MD Work Phone: [facility] 07-19-2023 influenza, injectabl e, quadrivalent, preservative free Dr. Alberto Garrett Work Phone: [facility] 11-07-2020 [facility] ([facility] Dr. Regina Garrett Work Phone: [facility] 10-10-2020 [employer] ([facility]) Dr. Regina Garrett Work Phone: [facility] Payers Date Payer Category Payer Self-pay [id number] 2024 Unknown [id number] 2023 Medicare [id number] 2015 Unknown [id number] Unknown [id number] Unknown [id number] 2.16.8 [id number] Unknown [id number] 2.16.8 [id number] Unknown [id number] 2.16.8 [id number] Unknown [id number] 2.16.8 [id number] Unknown [id number] 2.16.8 [id number] Unknown [id number] 2.16.8 [id number] Unknown [id number] 2.16.8 [id number] Unknown [id number] 2.16.8 [id number] Unknown [id number] 2.16.8 [id number] Unknown [id number] 2.16.8 [id number] Unknown [id number] 2.16.8 [id number] Social History Date Type Detail Facility [facility] Work Phone: Start: 12-25-2021 End: 07-19-2023 Tobacco smoking status NHIS Unknown if ever smoked [facility] Start: 1960 Sex Assigned At Female [facility] Start: 07-19-2023 Tobacco smoking stat us FLIS Never smoked tobacco (finding) [facility] Start: 10-31-2024 Sex Female (finding) [facility] Mental Status Date Assessment Result Facility 10-30-2021 Cognitive function Voice/Name [facility] Work Phone: Radiology Diagnostic study note 01-19-2025 Note Date & Type Note Facility 01-19-2025 Radiology Diagnostic study note [facility] Imaging Services [address], [place] [address] Knee 3 Views MR#: [id number] Acct: [id number] Name: DARLYN ESCOBAR Rep #: [id number] : 1960 F 64 From: Yarely Reyes MD PCP: Dr. Alberto Garrett MD Status: R EG CLI Study:Knee 3 Views Date of Exam: 5 Exam# [id number] Ordering Dr: Paris Garrett MD EXAM: XR Right Knee, 3 Views CLINICAL INDICATION: BILATERAL KNEE PAIN TECHNIQUE: Three views of the right knee. COMPARISON: No relevant prior studies available. FINDINGS: BONES/JOINTS: Mild tricompartmental degenerative changes of the knee joint. Noacute fracture. No dislocation. SOFT TISSUES: Soft tissue swelling. RAD/Knee 3 Views IMPRESSION: Degenerative changes as above. Reading Location: [facility] CC: Dr. 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 Alberto Garrett MD Status: R EG CLI Study:Knee 3 Views Date of Exam: 5 Exam# [id number] Ordering Dr: Paris Garrett MD EXAM: XR Left Knee, 3 Views CLINICAL INDICATION: BILATERAL KNEE PAIN TECHNIQUE: Three views of the left knee. COMPARISON: No relevant prior studies available. FINDINGS: BONES/JOINTS: Unremarkable. No acute fracture. No dislocation. SOFT TISSUES: Unremarkable. RAD/Knee 3 Views IMPRESSION: No acute fracture. Reading Location: [facility] CC: Dr. 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: Signed [facility] Evaluation note 12-27-2024 Note Date & Type Note Facility 12-27-2024 Evaluation note Diagnosis Onset Date Resolution Family history of early CAD acute December 27, 2024 7:58am Myalgia acute December 27, 2024 7:58am Hyperlipidemia chronic December 27, 2024 7:58am Screening for cardiovascular condition acute January 7:57am Bilateral knee pain chronic January 19, 2025 7:57am Essential hypertension chronic Ju 2024 7:57am Hyperlipidemia chronic January 19, 2025 7:57am [facility] Work Phone: Evaluation note 07-19-2024 Note Date & Type Note Facility 07-19-2024 Evaluation note Diagnosis Onset Date Resolution Health care maintenance acute D ecember 2023 9:09am Essential hypertension chronic De cember 2023 9:09am Hyperlipidemia chronic July 192023 9:09am [facility] Work Phone: Evaluation note Note Date & Type Note Facility Evaluation note Diagnosis Onset Date Colitis determined by colorectal biopsy acute [facility] Work Phone: Evaluation note Note Date & Type Note Facility Evaluation note Diagnosis Onset Date Colitis determined by colorectal biopsy acute Encounter for routine gyneco logical examination noneactive Colitis determined by colorectal biopsy acute Essential hypertension chron ic [facility] Work Phone: Evaluation note Note Date & Type Note Facility Evaluation note No assessment information availa ble [facility] Work Phone: Evaluation note Note Date & Type Note Facility Evaluation note Diagnosis Onset Date Health care maintenance acut e Essential hypertension chron ic Hyperlipidemia chronic [facility] Work Phone: Reason for referral (narrative) Note Date & Type Note Facility Reason for referral (narrative) No reason for referral information available [facility] Work Phone: Chief Complaint and Reason for Visit Chief Complaint OA SCANNING ONLY DISCUSS COLONOSCOPY RESULTS Annual ([facility]) Reason for Visit Colitis determined b y colorectal biopsy Chief Complaint DISCUSS COLONOSCOPY RESULTS Annual ([facility]) 6 M FU Reason for Visit Colitis determined b y colorectal biopsy Encounter for routine gynecological examination Colitis determined by colorectal biopsy Essential hypertension Chief Complaint SCREENING Chief Complaint yearly Reason for Visit Health care maintena nce Essential hypertension Hyperlipidemia Chief Complaint yearly POSTMENOPAUSAL, SCREENING Reason for Visit Health care maintena nce Essential hypertension Hyperlipidemia Chief Complaint Admit Date 6 M FU July 19, 2024 9 :09am SCREENING October 19, 2024 8:53 am Reason for Visit Admit Date Health care maintenance July 19 9:09am Essential hypertension July 19 9:09am Hyperlipidemia July 19, 2024 9 :09am Chief Complaint Admit Date SCREENING October 19, 2024 8:53 am SCREENING December 21, 2024 9:00am Acute-ache behind knees December 27, 2024 7 :58am Chief Complaint Admit Date SCREENING October 19, 2024 8:53 am SCREENING December 21, 2024 9:00am Acute-ache behind knees December 27, 2024 7 :58am 6 M FU January 19, 2025 7:57a m ADD BILATERAL KNEES January 19, 2025 8:30a m Reason for Visit Admit Date Family history of early CAD December 27 7:58am Myalgia December 27, 2024 7:58a m Hyperlipidemia December 27, 2024 7:58a m Screening for cardiovascular condition J 2024 7:57am Bilateral knee pain January 19, 2025 7:57a m Essential hypertension January 19, 2025 7: 57am Hyperlipidemia January 19, 2025 7:57a m Chief Complaint Admit Date SCREENING October 19, 2024 8:53 am SCREENING December 21, 2024 9:00am Acute-ache behind knees December 27, 2024 7 :58am 6 M FU January 19, 2025 7:57a m ADD BILATERAL KNEES January 19, 2025 8:30a m LUIS CARLOS KN PAIN/RX HERE January 23, 2025 7:27 am Family History No Family History Records Found Relationship Condition Age at Onset Recorded Date/T varsha sister Hypertension Unknown mother Coronary artery disease Unknown History of coronary artery bypass surgery Unknown brother Hypertension Unknown brother Sudden cardiac 42 Hypertension Unknown father Hypertension Unknown Myocardial infarction 55 Advance Directives No Advanced Directives Records Found Advance Directive Response Recorded Date/ Time Living Will Yes October 28, 2021 11:40am Power of Windows Software Developer Yes October 28 11:40am Advance Directive Response Recorded Date/ Time Living Will Yes October 28, 2021 10:40am Power of [employer] Software Developer Yes October 28 10:40am Summary Purpose Additional Source Comments Goals (unrecognized section and content) Goals may be documented in a n alternate sectionGoals may be documented in an alternate sectionGoals may be documented in an alternate sectionGoals may be documented in an alternate sectionGoals may be documented in an alternate sectionGoals may be documented in an alternate sectionGoals may be documented in an alternate sectionGoals may be documented in an alternate sectionGoals may be documented in an alternate section Care Teams (unrecognized sec tion and content) Team Status: Active Member Role Status Dates Dr. Alexandru Benavides MD Family Provider Active Dr. Alberto Garrett MD Primary Care Provider Active Team Status: Inactive Member Role Status Dates Dr. Alberto Garrett MD Primary Care Mahi renee, Attending Provider, Referring Provider Active Team Status: Active Member Role Status Dates Dr. Alberto Garrett MD Primary Care Provider Active Team Status: Inactive Member Role Status Dates Dr. Alberto Garrett MD Primary Care Provider Active Start: July 19, 2024 End: July 19, 2024 Dr. Alberto Garrett MD Attending Provider Active Start: July 19, 2024 End: July 19, 2024 Dr. Alberto Garrett MD Referring Provider Active Start: July 19, 2024 End: July 19, 2024 Team Status: Inactive Member Role Status Dates Dr. Alberto Garrett MD Primary Care Provider Active Start: October 19, 2024 End: October 19, 2024 Dr. Alberto Garrett MD Attending Provider Active Start: October 19, 2024 End: October 19, 2024 Dr. Alberto Garrett MD Referring Provider Active Start: October 19, 2024 End: October 19, 2024 Team Status: Active Member Role Status Dates Dr. Alberto Garrett MD Primary Care Provider Active Start: December 21, 2024 Self Referred Attending Provider Active Start: 2024 Self Referred Referring Provider Active Start: ay 2024 Team Status: Active Member Role Status Dates Dr. Alberto Garrett MD Primary Care Provider Active Start: December 21, 2024 Dr. Christopher Phillips MD Attending Provider Active S tart: December 21, 2024 Team Status: Inactive Member Role Status Dates Dr. Alberto Garrett MD Primary Care Provider Active Start: December 27, 2024 End: December 27, 2024 Dr. Alberto Garrett MD Referring Provider Active Start: December 27, 2024 End: December 27, 2024 ZEKE Rodriguez Attending Provider Active St art: December 27, 2024 End: December 27, 2024 Team Status: Inactive Member Role Status Dates Dr. Alberto Garrett MD Primary Care Provider Active Start: January 19, 2025 End: January 19, 2025 Dr. Alberto Garrett MD Attending Provider Active Start: January 19, 2025 End: January 19, 2025 Dr. Alberto Garrett MD Referring Provider Active Start: January 19, 2025 End: January 19, 2025 Team Status: Active Member Role Status Dates Dr. Alberto Garrett MD Primary Care Provider Active Start: January 19, 2025 Dr. Alberto Garrett MD Attending Provider Active Start: January 19, 2025 Dr. Alberto Garrett MD Referring Provider Active Start: January 19, 2025 Team Status: Active Member Role Status Dates Dr. Alberto Garrett MD Primary Care Provider Active Start: January 23, 2025 Dr. Alberto Garrett MD Attending Provider Active Start: January 23, 2025 Dr. Alberto Garrett MD Referring Provider Active Start: January 23, 2025 INFORMATION SOURCE (unrecogn ized section and content) DATE CREATED AUTHOR 01/28/2025 [facility] FOR RECORDS PERTAINING TO PATIENTS WHO ARE OR HAVE BEEN ENROLLED IN A CHEMICAL DEPENDENCY/SUBSTANCEABUSE PROGRAM, SOME INFORMATION MAY BE OMITTED. This clinical summary was aggregated from multiple sources. Caution should be exercised in using it in the provision of clinical care. This summary normalizes information from multiple sources, and as a consequence, information in this document may materially change the coding, format and clinical context of patient data. In addition, data may be omitted in some cases. CLINICAL DECISIONS SHOULD BE BASED ON THE PRIMARY CLINICAL RECORDS. [facility] [employer] provides no warranty or guarantee of the accuracy or completeness of information in this document.
== END | disposition home or self-care (01) ==
PROVIDERS: PCP Internal Medicine; Referring Provider Student in an Organized Health Care Education/Training Program; Visit Provider Student in an Organized Health Care Education/Training Program
DX: M79.671 Pain in right foot (principal); M21.70 Unequal limb length (acquired), unspecified site
CPT/HCPCS: 77073

== ENCOUNTER → 2025-02-15 | Outpatient (CLI) | payer MEDICARE, OTHER, SELFPAY ==
--- NOTE | 2025-02-15 07:23 | CT_ITS ---
PROCEDURE: LIMITED CHEST CT CARDIAC ONLY N/A REASON FOR EXAM: FAMILY HISTORY OF CAD,HYPERLIPIDEMIA TECHNIQUE: CT for coronary artery calcium scoring One or more dose reduction techniques were used (e.g., Automated exposure control, adjustment of the mA and/or kV according to patient size, use of iterative reconstruction technique). RADIATION DOSE SUMMARY: CTDlvol: 12.19 mGy DLP: 219.42 mGycm COMPARISON: Prior study of 03/06/2019. CT/Limited Chest CT Cardiac Only IMPRESSION: Limited imaging of the lungs demonstrates no acute process. No pleural effusion or pneumothorax is seen in visualized areas. No adenopathy is noted. The visualized upper abdomen demonstrates no significant abnormality. Reading Location: [place] [id number]
--- NOTE | 2025-02-15 07:23 | CT_ITS ---
PROCEDURE: LIMITED CHEST CT CARDIAC ONLY N/A REASON FOR EXAM: FAMILY HISTORY OF CAD,HYPERLIPIDEMIA TECHNIQUE: CT for coronary artery calcium scoring One or more dose reduction techniques were used (e.g., Automated exposure control, adjustment of the mA and/or kV according to patient size, use of iterative reconstruction technique). RADIATION DOSE SUMMARY: CTDlvol: 12.19 mGy DLP: 219.42 mGycm COMPARISON: Prior study of 03/06/2019. CT/Limited Chest CT Cardiac Only IMPRESSION: Limited imaging of the lungs demonstrates no acute process. No pleural effusion or pneumothorax is seen in visualized areas. No adenopathy is noted. The visualized upper abdomen demonstrates no significant abnormality. Reading Location: [place] [id number]
--- OUTSIDE RECORDS SUMMARY | 2025-02-15 07:40 | XMS RPT_ITS | CCD ---
Author Organization [facility] Care Team Providers Care Staff Scientist Name Role Phone Dr. Alberto Garrett Primary [...] 0) Dr. Alberto Garrett Attending Provider [phone] Dr[address] Alebrto Garrett Referring Provider [phone] Dr. Alberto Garrett MD Primary Care Provider Dr. Alberto Garrett MD Attending Provider 1(33 0) Dr. Alberto Garrett MD Referring Provider 1(33 0) Dr. Alberto Garrett MD Primary Care Provider Dr. Alberto Garrett MD Attending Provider 1(33 0) Dr. Alberto Garrett MD Referring Provider 1(33 0) Referred, Self Attending Provider Unavailable Referred, Self Referring Provider Unavailable Alan WEEKS, Dr. White Attending Provider Brandan Aguirre Attending Provider [phone] Emiliano HOUSTON, Dr. Soria Attending Provider Emiliano HOUSTON, Dr. Soria Referring Provider Oleghe, Efewongbe Primary Care Unavailable Yang Cummings Attending Unavailable Yang Cummings Referring Unavailable Oleghe, Efewongbe Primary Care Unavailable Oleghe, Efewongbe Attending Unavailable Oleghe, Efewongbe Referring Unavailable Oleghe, Efewongbe Primary Care Unavailable Oleghe, Efewongbe Attending Unavailable Oleghe, Efewongbe Referring Unavailable Oleghe, Efewongbe Primary Care Unavailable Oleghe, Efewongbe Attending Unavailable Oleghe, Efewongbe Referring Unavailable Oleghe, Efewongbe Primary Care Unavailable Yang Cummings Attending Unavailable Yang Cummings Referring Unavailable Oleghe, Efewongbe Primary Care Unavailable Oleghe, Efewongbe Attending Unavailable Oleghe, Efewongbe Referring Unavailable Oleghe, Efewongbe Attending Unavailable Oleghe, Efewongbe Referring Unavailable Oleghe, Efewongbe Primary Care Unavailable Christopher Phillips Attending Unavailable Oleghe, Efewongbe Primary Care Unavailable Klaus Stewart Attending Unavailable Oleghe, Efewongbe Primary Care Unavailable Brandan Aguirre Attending Unavailable Oleghe, Efewongbe Primary Care Unavailable Oleghe, Efewongbe Referring Unavailable Oleghe, Efewongbe Primary Care Unavailable Oleghe, Efewongbe Attending Unavailable Oleghe, Efewongbe Referring Unavailable Brandan Aguirre Attending Unavailable Oleghe, Efewongbe Referring Unavailable Oleghe, Efewongbe Primary Care Unavailable Referred, Self Attending Unavailable Referred, Self Referring Unavailable Oleghe, Efewongbe Primary Care Unavailable Oleghe, Efewongbe Attending Unavailable Oleghe, Efewongbe Referring Unavailable Oleghe, Efewongbe Primary Care Unavailable Allergies Allergy Classification Reported Allergen(s) Allergy Type Date of Onset Reaction(s) Facility (10 sources) Povidone-Iodine Drug Allergy 2 [facility] (11 sources) Sulfonamides (Antibiotic); Translations: [Sulfa (Sulfonamide Antibiotics)] Allergy to substance 2 Unknown [facility] (11 sources) soap; Translations: [soap] Allergy to substance 2 [facility] (1 source) Povidone-Iodine Drug Allergy 5 [facility] Repository Medications Current Medications Medication Drug Class(es) Dates Sig (Normalized) Sig (Original) aspirin 81 mg delayed release oral tablet (3 sources) Platelet Aggregation Inhibitor, Nonsteroidal Anti-inflammatory Drug Start: 01-19-2025 Aspirin (Adult Low Dose Aspirin) 81 mg tablet,delayed release (DR/EC) Active 81 mg PO daily January 19, 2025 12:00am cholecalciferol 0.1 mg oral tablet (4 sources) Vitamin D Start: 12-27-2024 take 1 tablet by mouth once daily Cholecalciferol (Vitamin D3) 100 mcg (4,000 unit) tablet Active 100 ug PO daily December 27, 2024 12:00am Coenzyme Q10 (H2q Coq10) 200 mg/gram powder (3 sources) Start: 01-19-2025 take 1 mg by mouth once daily Coenzyme Q10 (H2q Coq10) 200 mg/gram powder Active mg PO daily January 19, 2025 12:00am meloxicam 15 mg oral tablet (2 sources) Nonsteroidal Anti-inflammatory Drug Start: 01-22-2025 take 1 [...] at bedtime Atorvastatin Active 0 .ROUTE .COMPLEX August 24, 2023 12:27pm TAKE 1 TABLET BY MOUTH AT BEDTIME Start: 04-25-2019 End: 10-16-2024 take 1 tablet by mouth at bedtime Atorvastatin 10 mg tablet Discontinued 0 .ROUTE .COMPLEX May 15, 2024 8:28am October 16, 2024 10:13am TAKE 1 TABLET BY MOUTH AT BEDTIME hydrOXYzine hydrochloride 25 mg oral tablet (5 sources) Antihistamine Start: 04-06-2024 End: 07-19-2024 take [...] DAY triamcinolone acetonide 1 mg/ml topical cream (5 sources) Corticosteroid Start: 04-06-2024 End: 07-19-2024 Triamcinolone Acetonide 0.1 % cream Discontinued 1 NMA TOPICAL THREE TIMES A DAY April 06, 2024 12:00am July 19, 2024 10:15am Problems Active Problems Problem Classification Problem Date Documented Date Episodic/Chronic Allergic reactions (5 sources) Contact dermatitis due to poison chela; Translations: [Allergic contact dermatitis due to plants, except food] 04-06-2024 Episodic Disorders of lipid metabolism (20 sources) Pure hypercholesterolemia; Translations: [Pure hypercholesterolemia, unspecified] Onset: 01-19-2025 04-25-2019 Chronic Essential hypertension (18 sources) Essential hypertension; Translations: [Essential (primary) hypertension] Onset: 01-19-2025 Chronic Noninfectious gastroenteritis (13 sources) Colitis; Translations: [Noninfective gastroenteritis and colitis, unspecified] Episodic Nonspecific chest pain (10 sources) Precordial pain; Translations: [Precordial pain] 05-01-2020 Episodic Other acquired deformities (1 source) Unequal limb length (acquired), unspecified site; Translations: [Unequal limb length (acquired), unspecified site] Onset: 01-29-2025 Episodic Other connective tissue disease (7 sources) Muscle pain; Translations: [Myalgia, unspecified site] 12-27-2024 Episodic Other connective tissue disease (2 sources) Pain in right foot; Translations: [Pain in right foot] Onset: 01-29-2025 Episodic Other connective tissue disease (1 source) Myalgia, unspecified site; Translations: [Myalgia, unspecified site] Onset: 01-15-2025 Episodic Other non-traumatic joint disorders (7 sources) Pain in right knee; Translations: [Pain in both knees] Onset: 01-25-2025 01-19-2025 Episodic Other non-traumatic joint disorders (1 source) Pain in left knee; Translations: [Pain in left knee] Onset: 01-19-2025 Episodic Other nutritional; endocrine; and metabolic disorders (5 sources) Hypercalcemia; Translations: [Hypercalcemia] 01-19-2024 Chronic Other screening for suspected conditions (not mental disorders or infectious disease) (19 sources) Coronary arteriography abnormal; Translations: [Abnormal findings on diagnostic imaging of heart and coronary circulation] Onset: 10-31-2024 04-25-2019 Episodic Residual codes; unclassified (13 sources) FH: premature coronary heart disease; Translations: [Family history of ischemic heart disease and other diseases of the circulatory system] 08-29-2021 Episodic Residual codes; unclassified (2 sources) Family history of ischemic heart disease and other diseases of the circulatory system; Translations: [Family history of ischemic heart disease and other diseases of the circulatory system] Onset: 01-19-2025 Episodic Thyroid disorders (10 sources) Goiter; Translations: [Nontoxic goiter, unspecified] 08-14-2021 Chronic Past or Other Problems Problem Classification Problem Date Documented Da te Episodic/Chronic Immunizations and screening for infectious disease (1 source) Encounter for immunization; Translations: [Encounter for immunization] Onset: 07-19-2024 Episodic Results Test Name Value Interpretation Reference Range Facility Bone Lengthon 01-29-2025 Bone Length [facility] Imaging Services [address] [address] Bone Length MR#: [id number] Acct: [id number] Name: DARLYN ESCOBAR Rep #: [id number] : 1960 F 64 From: Keyanna orellana MD PCP: Dr. Alberto Garrett MD Status: REG CLI Study: Bone Length Date of Exam: 01/29/25 Exam# [id number] Ordering Dr: Yang Cummings DPM PROCEDURE: BONE LENGTH 01/29/2025 REASON FOR EXAM: UNEQUAL LIMB LENGTH F, age 64 y/o . TECHNIQUE: BONE LENGTH COMPARISON: None FINDINGS: The right femur measures 44.92 cm from the top of the articular surface of the femoral head to the intercondylar fossa. The left femur measures 44.92 cm from the top of the articular surface of the femoral head to the intercondylar fossa. The right tibia measures 36.87 cm from the top of the tibial spine to the mid aspect of the tibial plafond. The left tibia measures 36.89 cm from the top of the tibial spine to the mid aspect of the tibial plafond. The femurs, tibia and fibula as well as the visualized ankle joints are normal. RAD/Bone Length IMPRESSION: Normal bones of the lower extremities without length discrepancy. Reading Location: [facility] CC: ROSEMARIE Cummings; Dr. Alberto Garrett MD Industrial/Organizational Psychologist: Signed [facility] Inital Evaluation (1) - PTon 01-23-2025 Inital Evaluation (1) - PT [facility] [address] [place] [address]. [address] [place] [address] / REHABILITATION SERVICES INITIAL EVALUATION MR#: [id number] Acct: [id number] Name: DARLYN ESCOBAR Rep #: [id number] : 1960 64 From: Allie Altman DPT Referring Dr.: Dr. Alberto Garrett MD Status: REG RCR Insurance: MEDICARE PART A B [facility] Patient's Visit Information Visit Information Visit Information: [...] to be FAXED BACK to us at [phone] for Medicare purposes. For Medicare only, by signing this I certify the plan of care. Please let me know if there are questions or concerns regarding this plan of care. Physician Signature: Date: 01/23/25 0815 CC: Dr. Alberto Garrett MD ELR Signed [facility] Inital Evaluation (1) - PT [facility] [address] [place] [address] / REHABILITATION SERVICES INITIAL EVALUATION MR#: [id number] Acct: [id number] Name: DARLYN ESCOBAR Rep #: [id number] : 1960 64 From: Allie Altman DPT Referring Dr.: Dr. Alberto Garrett MD Status: REG RCR Insurance: MEDICARE PART A B [facility] Patient's Visit Information Visit Information Visit Information: [...] has one leg longer than another. Worst: 7-03/25 She reports feeling that it felt like [...] to be FAXED BACK to us at [phone] for Medicare purposes. For Medicare only, by signing this I certify the plan of care. Please let me know if there are questions or concerns regarding this plan of care. Physician Signature: Date: 01/23/2515 CC: Dr. Alberto Garrett MD ELR Signed [facility] Anion gap in Serum or Plasma Ordered By: Alberto Garrett on 01-19-2025 Anion gap [Moles/Vol] 13 mmol/L 5-15 [facility] BUN/creatinine ratioOrdered By: Alberto Garrett on 01-19-2025 Urea nitrogen/Creatinine [Mass ratio] 17.3 mg/mg - [facility] Basic Metabolic Profile (BMP )on 01-19-2025 BUN/CRE 17.3 RATIO Normal - [facility] Comment on above: Performed By: #### L 500.2500 #### [facility] [address] [place], [address] Calcium [Mass/Vol] 10.0 mg/dL Normal 7.6-11.0 [facility] Comment on above: Performed By: #### L 500.2500 #### [facility] [address] [place], [address] Chloride [Moles/Vol] 105 mmol/L Normal 98-108 [facility] Comment on above: Performed By: #### L 500.2500 #### [facility] [address] [place], [address] CO2 [Moles/Vol] 22.3 mmol/L Normal 21.0-32.0 [facility] Comment on above: Performed By: #### L 500.2500 #### [facility] [address] [place], [address] Creatinine [Mass/Vol] 0.95 mg/dL Normal 0.70-1.20 [facility] Comment on above: Performed By: #### L 500.2500 #### [facility] [address] [place], [address] GAP 13 Normal 5-15 [facility] Comment on above: Performed By: #### L 500.2500 #### [facility] [address] [place], [address] GFR/1.73 sq M.predicted among non-blacks MDRD (S/P/Bld) [Vol rate/Area] 66 mL/min/{1.73_m2} Normal >60 [facility] Comment on above: Result Comment: mL/m in/1.73m2 CKD-EPI Creatinine Equation (2020) Performed By: #### L 500.2500 #### [facility] [address] [place], [address] Glucose [Mass/Vol] 91 mg/dL Normal 70-99 [facility] Comment on above: Performed By: #### L 500.2500 #### [facility] [address] [place], [address] Potassium [Moles/Vol] 4.4 mmol/L Normal 3.3-5.1 [facility] Comment on above: Performed By: #### L 500.2500 #### [facility] [address] [place], [address] Sodium [Moles/Vol] 140 mmol/L Normal 133-145 [facility] Comment on above: Performed By: #### L 500.2500 #### [facility] [address] [place], [address] Urea nitrogen [Mass/Vol] 16 mg/dL Normal 4-19 [facility] Comment on above: Performed By: #### L 500.2500 #### [facility] [address] [place], [address] Carbon dioxide, total [Moles /volume] in Central venous bloodOrdered By: Alberto Garrett on 01-19-2025 CO2 [Moles/Vol] 22.3 mmol/L 21.0-32.0 [facility] Chloride assayOrdered By: León Garrett on 01-19-2025 Chloride [Moles/Vol] 105 mmol/L 98-108 [facility] Glomerular filtration rate ( GFR) estimation/1.73 sq m using serum, plasma, or whole bOrdered By: Alberto Garrett on 01-19-2025 GFR/1.73 sq M.predicted among non-blacks MDRD (S/P/Bld) [Vol rate/Area] 66 mL/min/{1.73_m2} >60 [facility] Comment on above: mL/min/1.73m2 CKD-EP I Creatinine Equation (2020) Internal Medicine Office Vis mindi 01-19-2025 Internal Medicine Office Visit [facility] [address] [place] [address] [place] [address] OFFICE VISIT Date of Service: 01/19/25 MR#: [id number] Acct: [id number] Name: LUZDARLYN S Rep #: [id number] : 1960 Provider: Dr. Alberto morgan MD Age/Sex: 64/F Location: [facility] Status: Signed Intake Vital Signs 07/19/24 09:16 [...] Chief Complaint: right knee injury and pain Forest Resource Specialist Required: No Accompanied by: Self Is patient [...] hurt right knee while playing pickle ball [facility] Medical History (Updated 01/19/25 @ 08:30 by [...] home: Yes additional social history: - [place] [facility] HPI Chief Complaint: right knee injury and [...] No darien (more content not included)... [facility] Knee 3 Viewson 01-19-2025 Knee 3 Views [facility] Imaging Services [address] [place], [place] [address] Knee 3 Views MR#: [id number] Acct: [id number] Name: DARLYN ESCOBAR Rep #: [id number] : 1960 F 64 From: Hao Reyes MD PCP: Dr. Alberto Garrett MD Status: REG CLI Study: Knee 3 Views Date of Exam: 01/19/25 Exam# [id number] Ordering Dr: Alberto Garrett MD EXAM: XR Right Knee, 3 Views CLINICAL INDICATION: BILATERAL KNEE PAIN TECHNIQUE: Three views of the right knee. COMPARISON: No relevant prior studies available. FINDINGS: BONES/JOINTS: Mild tricompartmental degenerative changes of the knee joint. No acute fracture. No dislocation. SOFT TISSUES: Soft tissue swelling. RAD/Knee 3 Views IMPRESSION: Degenerative changes as above. Reading Location: [facility] CC: Dr. Alberto Garrett MD Industrial/Organizational Psychologist: Signed [facility] Knee 3 Views [facility] Imaging Services [address] [place] [address] Knee 3 Views MR#: [id number] Acct: [id number] Name: DARLYN ESCOBAR Rep #: [id number] : 1960 F 64 From: Hao Reyes MD PCP: Dr. Alberto Garrett MD Status: REG CLI Study: Knee 3 Views Date of Exam: 01/19/25 Exam# [id number] Ordering Dr: Alberto Garrett MD EXAM: XR Left Knee, 3 Views CLINICAL INDICATION: BILATERAL KNEE PAIN TECHNIQUE: Three views of the left knee. COMPARISON: No relevant prior studies available. FINDINGS: BONES/JOINTS: Unremarkable. No acute fracture. No dislocation. SOFT TISSUES: Unremarkable. RAD/Knee 3 Views IMPRESSION: No acute fracture. Reading Location: [facility] CC: Dr. Alberto Garrett MD Industrial/Organizational Psychologist: Signed [facility] Potassium measurement (mass/ volume)Ordered By: Alberto Garrett on 01-19-2025 Potassium (Unsp spec) [Mass/Vol] 4.4 mmol/L 3.3-5.1 [facility] Serum creatinine measurement (mass/volume)Ordered By: Alberto Oleghe on 01-19-2025 Creatinine [Mass/Vol] 0.95 mg/dL 0.70-1.20 [facility] Serum glucose measurement (m ass/volume)Ordered By: Baldomeroargelia Castanovitoalcon on 01-19-2025 Glucose [Mass/Vol] 91 mg/dL 70-99 [facility] Serum or plasma calcium estephania urement (mass/volume)Ordered By: Alberto Eyadvitoalcon on 01-19-2025 Calcium [Mass/Vol] 10.0 mg/dL 7.6-11.0 [facility] Serum or plasma urea nitroge n measurement (mass/volume)Ordered By: Alberto Blancalcon on 01-19-2025 Urea nitrogen [Mass/Vol] 16 mg/dL 4-19 [facility] Sodium levelOrdered By: [facility] kanwal Eyadvitoalcon on 01-19-2025 Sodium [Moles/Vol] 140 mmol/L 133-145 [facility] Internal Medicine Office Vis itoesteban 12-27-2024 Internal Medicine Office Visit [facility] [place] [address] [place] [address] OFFICE VISIT Date of Service: 12/27/24 MR#: [id number] Acct: [id number] Name: DARLYN ESCOBAR Rep #: [id number] : 1960 Provider: ZEKE Hercules Age/Sex: 64/F Location: [facility] Status: Signed Intake Vital Signs 07/19/24 09:16 12/27/24 08:14 Height 5 ft 6 in 5 ft 6 in Weight: 164 lb BMI 26.4 BP 126/82 H Blood Pressure Location Lt brachial Position Sitting Respiration 16 Pulse 67 Pulse Source Monitor Temp 97.5 F L Temp Source Temporal Intake Visit Reasons: Acute-ache behind knees Chief Complaint: 6 M FU Forest Resource Specialist Required: No Is patient in pain?: No [...] will be driving [address] [facility] Medical History Hypercalcemia Health care maintenance Hyperlipidemia [...] of l (more content not included)... [facility] Breast imaging reportOrdered By: Pool Crandall on 10-19-2024 Study report [facility] Imaging Services [address] [address] SCRN MAMM (CAD)W/BC ALY MR#: [id number] Acct: [id number] Name: DARLYN ESCOBAR Rep #: [id number] : 1960 F 64 From: Ismael Crandall MD PCP: Dr. Alberto Garrett MD Status: R EG CLI Study:SCRN MAMM (CAD)W/BC BILAT Date of Exa m: 10/19/24 Exam# [id number] Ordering Dr: Alcon Garrett MD PROCEDURE: SCRN MAMM (CAD)W/BC BILAT [...] of the results by letter. Reading Location: [id number] CC: Dr. Alberto Garrett MD ~ Industrial/Organizational Psychologist: Signed [facility] SCRN MAMM (CAD)W/BC BILATo n 10-19-2024 SCRN MAMM (CAD)W/BC BILAT [facility] Imaging Services [address] [place], [place] [address] SCRN MAMM (CAD)W/BC BILAT MR#: [id number] Acct: [id number] Name: DARLYN ESCOBAR Rep #: [id number] : 1960 64 From: Pool cooper MD PCP: Dr. Alberto Garrett MD Status: REG CLI Study: SCRN MAMM (CAD)W/BC BILAT Date of Exam: 02/07 Exam# [id number] Ordering Dr: Alberto Garrett MD PROCEDURE: SCRN [...] of the results by letter. Reading Location: [facility] CC: Dr. Alberto Garrett MD Industrial/Organizational Psychologist: Signed [facility] Absolute neutrophil countOrd ered By: Alberto Garrett on 07-19-2024 Neutrophils (Bld) [#/Vol] 5.6 10*3/uL 2.0-7.7 [facility] Albumin to globulin ratioOrd ered By: Alberto Garrett on 07-19-2024 Albumin/Globulin [Mass ratio] 0.9 {ratio} 0.9-2.4 [facility] Basophil percentageOrdered B y: Alberto Garrett on 07-19-2024 Basophils/100 WBC (Bld) 0.6 % 0-[address] [facility] Bilirubin, totalOrdered By: Alberto Garrett on 07-19-2024 Bilirubin [Mass/Vol] 0.50 mg/dL 0.20-1.00 [facility] Comment on above: For patients on eltr ombopag therapy, use of Dimension [place] TBIL is not recommended. Blood urea nitrogen (BUN)/cr eatinine ratioOrdered By: Alberto Garrett on 07-19-2024 Urea nitrogen/Creatinine [Mass ratio] 20.7 mg/mg High 10-20 [facility] CBC W/Diff, Automatedon 12 Absolute Lymph 1.60 X10 3/uL Normal 0.83-4.51 [facility] Comment on above: Performed By: #### L 500.4050, L500.4100, L100.0100 #### [facility] [address] [place], [address] Absolute Neut 5.6 X10 3/uL Normal 2.0-7.7 [facility] Comment on above: Performed By: #### L 500.4050, L500.4100, L100.0100 #### [facility] [address] [place], [address] Basophils/100 WBC (Bld) 0.6 % Normal 0-[address] [facility] Comment on above: Performed By: #### L 500.4050, L500.4100, L100.0100 #### [facility] [address] [place], [address] Eosinophils/100 WBC (Bld) 1.3 % Normal 0-5 [facility] Comment on above: Performed By: #### L 500.4050, L500.4100, L100.0100 #### [facility] [address] [place], [address] Erythrocyte distribution width (RBC) [Ratio] 12.7 % Normal 11.6-14.6 [facility] Comment on above: Performed By: #### L 500.4050, L500.4100, L100.0100 #### [facility] [address] [place], [address] Hematocrit (Bld) [Volume fraction] 37.9 % Normal 37-47 [facility] Comment on above: Performed By: #### L 500.4050, L500.4100, L100.0100 #### [facility] [address] [place], [address] Hemoglobin (Bld) [Mass/Vol] 12.3 g/dL Normal 12.0-15.0 [facility] Comment on above: Performed By: #### L 500.4050, L500.4100, L100.0100 #### [facility] [address] [place], [address] IG% 0.400 Normal 0.0-0.9 [facility] Comment on above: Result Comment: IG% - Immature Granulocytes (promyelocytes, myelocytes and metamyelocytes) > 1% indicates that a LEFT SHIFT is Present. Performed By: #### L 500.4050, L500.4100, L100.0100 #### [facility] [address] [place], [address] Lymphocytes/100 WBC (Bld) 20.2 % Normal 19-41 [facility] Comment on above: Performed By: #### L 500.4050, L500.4100, L100.0100 #### [facility] [address] [place], [address] MCH (RBC) [Entitic mass] 29.5 pg Normal 27.0-32.0 [facility] Comment on above: Performed By: #### L 500.4050, L500.4100, L100.0100 #### [facility] [address] [place], [address] MCHC (RBC) [Mass/Vol] 32.5 g/dL Normal 32-36 [facility] Comment on above: Performed By: #### L 500.4050, L500.4100, L100.0100 #### [facility] [address] [place], [address] MCV (RBC) [Entitic vol] 90.9 fL Normal 81-[address] [facility] Comment on above: Performed By: #### L 500.4050, L500.4100, L100.0100 #### [facility] [address] [place], [address] Monocytes/100 WBC (Bld) 6.7 % Normal 0-[address] [facility] Comment on above: Performed By: #### L 500.4050, L500.4100, L100.0100 #### [facility] [address] [place], [address] Neutrophils/100 WBC (Bld) 70.8 % High 47-70 [facility] Comment on above: Performed By: #### L 500.4050, L500.4100, L100.0100 #### [facility] [address] [place], [address] Nucleated RBC (Bld) [#/Vol] 0 10*3/uL Normal 0-5 [facility] Comment on above: Performed By: #### L 500.4050, L500.4100, L100.0100 #### [facility] [address] [place], [address] Platelet mean volume (Bld) [Entitic vol] 10.4 fL Normal 6.2-12.0 [facility] Comment on above: Performed By: #### L 500.4050, L500.4100, L100.0100 #### [facility] [address] [place], [address] Platelets (Bld) [#/Vol] 345 10*3/uL Normal 150-450 [facility] Comment on above: Performed By: #### L 500.4050, L500.4100, L100.0100 #### [facility] [facility] [address] [place], [address] RBC (Bld) [#/Vol] 4.17 10*6/uL Low 4.2-5.4 [facility] Comment on above: Performed By: #### L 500.4050, L500.4100, L100.0100 #### [facility] [address] [place] [place], [address] RDW SD 41.9 fl Normal 35.1-43.9 [facility] Comment on above: Performed By: #### L 500.4050, L500.4100, L100.0100 #### [facility] [address] [place], [address] WBC (Bld) [#/Vol] 7.9 10*3/uL Normal 4.4-11.0 [facility] Comment on above: Performed By: #### L 500.4050, L500.4100, L100.0100 #### [facility] [address] [place], [address] Carbon dioxide measurementOr dered By: Alberto Garrett on 07-19-2024 CO2 [Moles/Vol] 24.0 mmol/L 21.0-32.0 [facility] Chloride measurementOrdered By: Alberto Garrett on 07-19-2024 Chloride [Moles/Vol] 109 mmol/L High 98-107 [facility] Comprehensive Metabolic Prof ilon 07-19-2024 Albumin [Mass/Vol] 3.6 g/dL Normal 3.2-5.0 [facility] Comment on above: Performed By: #### L 500.4050, L500.4100, L100.0100 #### [facility] [address] [place], [address] Albumin/Globulin [Mass ratio] 0.9 {ratio} Normal 0.9-2.4 [facility] Comment on above: Performed By: #### L 500.4050, L500.4100, L100.0100 #### [facility] [address] [place], [address] ALK P 69 U/L Normal 45-117 [facility] Comment on above: Performed By: #### L 500.4050, L500.4100, L100.0100 #### [facility] [address] [place], [address] ALT [Catalytic activity/Vol] 25 U/L Normal 13-56 [facility] Comment on above: Performed By: #### L 500.4050, L500.4100, L100.0100 #### [facility] [address] [place], [address] AST [Catalytic activity/Vol] 19 U/L Normal 15-37 [facility] Comment on above: Performed By: #### L 500.4050, L500.4100, L100.0100 #### [facility] [address] [place], [address] Bilirubin [Mass/Vol] 0.50 mg/dL Normal 0.20-1.00 [facility] Comment on above: Result Comment: For patients on eltrombopag therapy, use of Dimension [place] TBIL is not recommended. Performed By: #### L 500.4050, L500.4100, L100.0100 #### [facility] [address] [place], [address] BUN/CRE 20.7 RATIO High 10-20 [facility] Comment on above: Performed By: #### L 500.4050, L500.4100, L100.0100 #### [facility] [address] [place], [address] CA,Total 9.5 mg/dL Normal 8.5-10.1 [facility] Comment on above: Performed By: #### L 500.4050, L500.4100, L100.0100 #### [facility] [address] [place], [address] Chloride [Moles/Vol] 109 mmol/L High 98-107 [facility] Comment on above: Performed By: #### L 500.4050, L500.4100, L100.0100 #### [facility] [address] [place], [address] CO2 [Moles/Vol] 24.0 mmol/L Normal 21.0-32.0 [facility] Comment on above: Performed By: #### L 500.4050, L500.4100, L100.0100 #### [facility] [address] [place], [address] Creatinine [Mass/Vol] 0.87 mg/dL Normal 0.55-1.02 [facility] Comment on above: Result Comment: The validity of the calculated GFR GFRAA in patients over 70 years has not been determined. Clinical correlation is essential. Performed By: #### L 500.4050, L500.4100, L100.0100 #### [facility] [address] [place], [address] EST GFR - AA 84 mL/min Normal >60 [facility] Comment on above: Result Comment: Afri can Afghan GFR Calc Performed By: #### L 500.4050, L500.4100, L100.0100 #### [facility] [address] [place], [address] GAP 8 Normal 5-15 [facility] Comment on above: Performed By: #### L 500.4050, L500.4100, L100.0100 #### [facility] [address] [place], [address] GFR/1.73 sq M.predicted among non-blacks MDRD (S/P/Bld) [Vol rate/Area] 69 mL/min/{1.73_m2} Normal >60 [facility] Comment on above: Result Comment: Non- GFR Calc Performed By: #### L 500.4050, L500.4100, L100.0100 #### [facility] [address] [place], [address] Globulin (S) [Mass/Vol] 3.9 g/dL Normal 2.2-4.[address] [facility] Comment on above: Performed By: #### L 500.4050, L500.4100, L100.0100 #### [facility] [address] [place], [address] Glucose [Mass/Vol] 96 mg/dL Normal 74-106 [facility] Comment on above: Performed By: #### L 500.4050, L500.4100, L100.0100 #### [facility] [address] [place], [address] Potassium [Moles/Vol] 4.0 mmol/L Normal 3.5-5.1 [facility] Comment on above: Performed By: #### L 500.4050, L500.4100, L100.0100 #### [facility] [address] [place], [address] Sodium [Moles/Vol] 141 mmol/L Normal 136-145 [facility] Comment on above: Performed By: #### L 500.4050, L500.4100, L100.0100 #### [facility] [address] [place], [address] T PROT 7.5 g/dL Normal 6.4-8.2 [facility] Comment on above: Performed By: #### L 500.4050, L500.4100, L100.0100 #### [facility] [address] [place], [address] Urea nitrogen [Mass/Vol] 18 mg/dL Normal 7-18 [facility] Comment on above: Performed By: #### L 500.4050, L500.4100, L100.0100 #### [facility] [address] [place], [address] Eosinophil percentageOrdered By: Alberto Garrett on 07-19-2024 Eosinophils/100 WBC (Bld) 1.3 % 0-5 [facility] Erythrocyte distribution wid th ratioOrdered By: Alberto Garrett on 07-19-2024 Erythrocyte distribution width (RBC) [Ratio] 12.7 % 11.6-14.6 [facility] Erythrocyte distribution wid th standard deviationOrdered By: Alberto Garrett on 07-19-2024 Erythrocyte distribution width (RBC) [Entitic vol] 41.9 fL 35.1-43.9 [facility] Estimated glomerular filtrat ion rate (GFR) AmericanOrdered By: Alberto Garrett on 07-19-2024 Estimated GFR (MDRD) Amer 84 mL/min >60 [facility] Comment on above: GFR Calc Glomerular filtration rate ( GFR) estimationOrdered By: Alberto Garrett on 07-19-2024 Estimated GFR (MDRD) Non-Af Amer 69 mL/min >60 [facility] Comment on above: Non- GFR Calc Glucose measurementOrdered B y: Alberto Garrett on 07-19-2024 Glucose [Mass/Vol] 96 mg/dL 74-106 [facility] Hematocrit Auto (Bld) [Volum e fraction]Ordered By: Alberto Garrett on 07-19-2024 Hematocrit (Bld) [Volume fraction] 37.9 % 37-47 [facility] Hemoglobin measurementOrdere d By: Alberto Garrett on 07-19-2024 Hemoglobin (Bld) [Mass/Vol] 12.3 g/dL 12.0-15.0 [facility] High density lipoprotein (HD L) measurementOrdered By: Alberto Garrett on 07-19-2024 Cholesterol in HDL [Mass/Vol] 93 mg/dL >40 [facility] Comment on above: The drugs N-Acetylcy steine and Metamizole may falsely depress this assay. Reference Range HDL <40 mg/dL Low HDL Cholesterol HDL >or= 60 mg/dL High HDL Cholesterol Immature granulocytes/100 WB C Auto (Bld)Ordered By: Alberto Garrett on 07-19-2024 Immature granulocytes/100 WBC (Bld) 0.400 % 0.0-0.9 [facility] Comment on above: IG% - Immature Granu locytes (promyelocytes, myelocytes and metamyelocytes) > 1% indicates that a LEFT SHIFT is Present. Internal Medicine Office Vis mindi 07-19-2024 Internal Medicine Office Visit [facility] [address] [place] [address] [place] [address] OFFICE VISIT Date of Service: 07/19/24 MR#: [id number] Acct: [id number] Name: DARLYN ESCOBAR Rep #: [id number] : 1960 Provider: Dr. Alberto morgan MD Age/Sex: 64/F Location: [facility] Status: Signed with Addenda ADDENDUM by GRACE Smith on 07/19/24 at 0936 Office Procedure Documentation entered by Ericka Smith MA 07/19/24 09:36: Immunizations Fluad Triv (65y up)(PF) 45 mcg (15 mcg x 3)/0.5 mL IM syringe Performing Provider: Alberto Garrett MD Performing Location: [facility] Administered by: Ericka Smith MA on 07/19/24 09:36 Dose Route Admin Location Dispensed Lot Number Expiration Date [facility] Man ufacturer 45 mcg IM Left Deltoid 0.5 mL [id number] 12/15/24 54020-408-33 [employer] VIS Given Date VIS Provided VIS [...] her previous PCP prescribed this for her. 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 No acute concerns at this time. History of hypertension, blood pressure today at 128/80. She monitors her numbers at home and she states that her readings are typically less than 120 systolic. Stays active playing [employer] ball. No chest pain, palpitation or shortness of [...] ENT EN (more content not included)... Normal [facility] - Chemistry and C hemistry - challengeOrdered By: Alberto Garrett on 07-19-2024 AST [Catalytic activity/Vol] 19 U/L 15-37 [facility] Lipid Profileon 07-19-2024 Cholesterol [Mass/Vol] 169 mg/dL Normal 200 [facility] Comment on above: Result Comment: <200 mg/dL Desirable 200-240 mg/dL Borderline >240 mg/dL High Risk Performed By: #### L 500.4050, L500.4100, L100.0100 #### [facility] [address] [place], [address] Cholesterol in HDL [Mass/Vol] 93 mg/dL Normal [facility] Comment on above: Result Comment: The drugs N-Acetylcysteine and Metamizole may falsely depress this assay. Reference Range HDL <40 mg/dL Low HDL Cholesterol HDL >or= 60 mg/dL High HDL Cholesterol Performed By: #### L 500.4050, L500.4100, L100.0100 #### [facility] [address] [place], [address] Cholesterol in LDL [Mass/Vol] 64 mg/dL Normal 0-130 [facility] Comment on above: Performed By: #### L 500.4050, L500.4100, L100.0100 #### [facility] [address] [place], [address] Cholesterol in VLDL [Mass/Vol] 12 mg/dL Normal 5-40 [facility] Comment on above: Performed By: #### L 500.4050, L500.4100, L100.0100 #### [facility] [address] [place], [address] Triglyceride [Mass/Vol] 62 mg/dL Normal [facility] Comment on above: Result Comment: The drugs N-Acetylcysteine and Metamizole may falsely depress this assay. Serum Triglycerides Reference Interval Normal <150 mg/dL Borderline high 150 - 199 mg/dL High 200 - 499 mg/dL Very High > or = 500 mg/dL Performed By: #### L 500.4050, L500.4100, L100.0100 #### [facility] [address] [place], [address] Low density lipoprotein (LDL ) cholesterol measurementOrdered By: Alberto Garrett on 07-19-2024 Cholesterol in LDL [Mass/Vol] 64 mg/dL 0-130 [facility] Lymphocytes Auto (Unsp spec) [#/Vol]Ordered By: Alberto Garrett on 07-19-2024 Lymphocytes (Bld) [#/Vol] 1.60 10*3/uL 0.83-4.51 [facility] Lymphocytes/100 WBC Auto (Un sp spec)Ordered By: Alberto Garrett on 07-19-2024 Lymphocytes/100 WBC (Bld) 20.2 % 19-41 [facility] MCV (mean corpuscular volume ) determinationOrdered By: Alberto Garrett on 07-19-2024 MCV (RBC) [Entitic vol] 90.9 fL 81-[address] [facility] Mean corpuscular hemoglobin (MCH) determinationOrdered By: Alberto Garrett on 07-19-2024 MCH (RBC) [Entitic mass] 29.5 pg 27.0-32.0 [facility] Mean corpuscular hemoglobin concentration (MCHC) determinationOrdered By: Alberto Garrett on 07-19-2024 MCHC (RBC) [Mass/Vol] 32.5 g/dL 32-36 [facility] Mean platelet volume determi nationOrdered By: Alberto Garrett on 07-19-2024 Platelet mean volume (Bld) [Entitic vol] 10.4 fL 6.2-12.0 [facility] Monocyte percentageOrdered B y: Alberto Garrett on 07-19-2024 Monocytes/100 WBC (Bld) 6.7 % 0-[address] [facility] Neutrophil percentageOrdered By: Alberto Garrett on 07-19-2024 Neutrophils/100 WBC (Bld) 70.8 % High 47-70 [facility] Nucleated red blood cell per centageOrdered By: Alberto Garrett on 07-19-2024 Nucleated RBC/100 WBC (Bld) [Ratio] 0 % 0-5 [facility] Platelet countOrdered By: León Garrett on 07-19-2024 Platelets (Bld) [#/Vol] 345 10*3/uL 150-450 [facility] Potassium measurementOrdered By: Alberto Garrett on 07-19-2024 Potassium [Moles/Vol] 4.0 mmol/L 3.5-5.1 [facility] RBC Auto (Bld) [#/Vol]Ordere d By: Alberto Garrett on 07-19-2024 RBC (Bld) [#/Vol] 4.17 10*6/uL Low 4.2-5.4 [facility] Serum anion gap measurementO rdered By: Alberto Garrett on 07-19-2024 Anion gap [Moles/Vol] 8 mmol/L 5-15 [facility] Serum globulin measurementOr dered By: Alberto Garrett on 07-19-2024 Globulin (S) [Mass/Vol] 3.9 g/dL 2.2-4.[address] [facility] Serum or plasma alanine diehl otransferase (ALT) measurementOrdered By: Alberto Garrett on 07-19-2024 ALT [Catalytic activity/Vol] 25 U/L 13-56 [facility] Serum or plasma albumin estephania urement (mass/volume)Ordered By: Alberto Garrett on 07-19-2024 Albumin [Mass/Vol] 3.6 g/dL 3.2-5.0 [facility] Serum or plasma alkaline jessica sphatase measurementOrdered By: Alberto Garrett on 07-19-2024 ALP [Catalytic activity/Vol] 69 U/L 45-117 [facility] Serum or plasma calcium estephania urement (mass/volume)Ordered By: Alberto Garrett on 07-19-2024 Calcium [Mass/Vol] 9.5 mg/dL 8.5-10.1 [facility] Serum or plasma cholesterol measurement (mass/volume)Ordered By: Alberto Garrett on 07-19-2024 Cholesterol [Mass/Vol] 169 mg/dL <200 [facility] Comment on above: <200 mg/dL Desirable 200-240 mg/dL Borderline >240 mg/dL High Risk Serum or plasma creatinine m easurement (mass/volume)Ordered By: Alberto Garrett on 07-19-2024 Creatinine [Mass/Vol] 0.87 mg/dL 0.55-1.02 [facility] Comment on above: The validity of the calculated GFR & GFRAA in patients over 70 years has not been determined. Clinical correlation is essential. Serum or plasma urea nitroge n measurement (mass/volume)Ordered By: Alberto Garrett on 07-19-2024 Urea nitrogen [Mass/Vol] 18 mg/dL 7-18 [facility] Sodium levelOrdered By: Jeanne Garrett on 07-19-2024 Sodium [Moles/Vol] 141 mmol/L 136-145 [facility] Total proteinOrdered By: Luis Armando Garrett on 07-19-2024 Protein [Mass/Vol] 7.5 g/dL 6.4-8.2 [facility] Triglycerides measurementOrd ered By: Alberot Garrett on 07-19-2024 Triglyceride [Mass/Vol] 62 mg/dL <199 [facility] Comment on above: The drugs N-Acetylcy steine and Metamizole may falsely depress this assay.Serum Triglycerides Reference Interval Normal <150 mg/dL Borderline high 150 - 199 mg/dL High 200 - 499 mg/dL Very High > or = 500 mg/dL Very low density lipoprotein (VLDL) cholesterol measurementOrdered By: Alberto Garrett on 07-19-2024 VLDL Cholesterol 12 mg/dL 5-40 [facility] White blood cell (WBC) count Ordered By: Alberto Garrett on 07-19-2024 WBC (Bld) [#/Vol] 7.9 10*3/uL 4.4-11.0 [facility] Internal Medicine Office Vis iton 04-06-2024 Internal Medicine Office Visit [facility] [address] [place], [place] [address] OFFICE VISIT Date of Service: 04/06/24 MR#: [id number] Acct: [id number] Name: DARLYN ESCOBAR Rep #: [id number] : 1960 Provider: ZEKE Hercules Age/Sex: 63/F Location: [facility] Status: Signed Intake Vital Signs 01/19/24 09:29 [...] POISON [place]LA Chief Complaint: 6 M FU 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 [facility] Medical History Hypercalcemia Health care maintenance Hyperlipidemia [...] home: Yes additional social history: - [employer]son [facility] HPI Chief Complaint: 6 M FU Details: [...] and rash; (more content not included)... Normal [facility] Absolute lymphocyte countOrd ered By: Alberto Garrett on 07-19-2023 Lymphocytes Auto (Unsp spec) [#/Vol] 1.44 10*3/uL 0.83-4.51 [facility] Basophil percentageOrdered B y: Leónmandykanwal Tami on 07-19-2023 Basophils/100 WBC (Bld) 0.6 % 0-[address] [facility] Bilirubin [Mass/Vol] 0.70 mg/dL 0.20-1.00 [facility] Comment on above: For patients on eltr ombopag therapy, use of Dimension [place] TBIL is not recommended. Chloride [Moles/Vol] 110 mmol/L 98-107 [facility] Cholesterol [Mass/Vol] 177 mg/dL <200 [facility] Comment on above: <200 mg/dL Desirable 200-240 mg/dL Borderline >240 mg/dL High Risk Eosinophils/100 WBC (Bld) 1.1 % 0-5 [facility] Glucose [Mass/Vol] 92 mg/dL 74-106 [facility] Neutrophils (Bld) [#/Vol] 4.4 10*3/uL 2.0-7.7 [facility] Neutrophils/100 WBC (Bld) 69.4 % 47-70 [facility] Potassium [Moles/Vol] 4.0 mmol/L 3.5-5.1 [facility] Protein [Mass/Vol] 7.4 g/dL 6.4-8.2 [facility] Sodium [Moles/Vol] 140 mmol/L 136-145 [facility] Triglyceride [Mass/Vol] 99 mg/dL <[address] [facility] Comment on above: The drugs N-Acetylcy steine and Metamizole may falsely depress this assay.Serum Triglycerides Reference Interval Normal <150 mg/dL Borderline high 150 - 199 mg/dL High 200 - 499 mg/dL Very High > or = 500 mg/dL WBC (Bld) [#/Vol] 6.3 10*3/uL 4.4-11.0 [facility] Blood erythrocytes count (nu mber/volume)Ordered By: Alberto Garrett on 07-19-2023 RBC (Bld) [#/Vol] 4.11 10*6/uL 4.2-5.4 [facility] Blood hemoglobin measurement (mass/volume)Ordered By: Alberto Garrett on 07-19-2023 Hemoglobin (Bld) [Mass/Vol] 12.1 g/dL 12.0-15.0 [facility] Blood lymphocytes/100 leukoc ytesOrdered By: Alberto Garrett on 07-19-2023 Lymphocytes/100 WBC (Bld) 22.9 % 19-41 [facility] Blood monocytes/100 leukocyt esOrdered By: Alberto Garrett on 07-19-2023 Monocytes/100 WBC (Bld) 5.7 % 0-10 [facility] Blood platelet mean volumeOr dered By: Alberto Garrett on 07-19-2023 Platelet mean volume (Bld) [Entitic vol] 10.4 fL 6.2-12.0 [facility] Determination of erythrocyte mean corpuscular volume (MCV)Ordered By: Alberto Garrett on 07-19-2023 MCV (RBC) [Entitic vol] 92.2 fL 81-[address] [facility] Hematocrit Auto (Bld) [Volum e fraction]Ordered By: Alberto Garrett on 07-19-2023 Hematocrit (Bld) [Volume fraction] 37.9 % 37-47 [facility] - Chemistry and C hemistry - challengeOrdered By: ever Garrett on 07-19-2023 ALP [Catalytic activity/Vol] 72 U/L 45-117 [facility] ALT [Catalytic activity/Vol] 37 U/L 13-56 [facility] CO2 [Moles/Vol] 25.0 mmol/L 21.0-32.0 [facility] Globulin (S) [Mass/Vol] 3.8 g/dL 2.2-4.[address] [facility] Urea nitrogen/Creatinine [Mass ratio] 17.8 mg/mg 10-20 [facility] - Hematology and Cell countsOrdered By: mandyenniceargelia Castanoalcon on 07-19-2023 Erythrocyte distribution width (RBC) [Entitic vol] 42.6 fL 35.1-43.9 [facility] Erythrocyte distribution width (RBC) [Ratio] 12.5 % 11.6-14.6 [facility] Immature granulocytes/100 WBC (Bld) 0.300 % 0.0-0.9 [facility] Comment on above: IG% - Immature Granu locytes (promyelocytes, myelocytes and metamyelocytes) > 1% indicates that a LEFT SHIFT is Present. MCH (RBC) [Entitic mass] 29.4 pg 27.0-32.0 [facility] Nucleated RBC/100 WBC (Bld) [Ratio] 0 % 0-5 [facility] MCHC Auto (RBC) [Mass/Vol]Or dered By: Alberto Garrett on 07-19-2023 MCHC (RBC) [Mass/Vol] 31.9 g/dL 32-36 [facility] No Panel InformationOrdered By: ever Garrett on 07-19-2023 Estimated GFR (MDRD) Amer 81 mL/min >60 [facility] Comment on above: GFR Calc Estimated GFR (MDRD) Non-Af Amer 67 mL/min >60 [facility] Comment on above: Non- GFR Calc Platelets bldOrdered By: Luis Armando Garrett on 07-19-2023 Platelets (Bld) [#/Vol] 306 10*3/uL 150-450 [facility] Serum or plasma albumin estephania urement (mass/volume)Ordered By: Alberto Garrett on 07-19-2023 Albumin [Mass/Vol] 3.6 g/dL 3.2-5.0 [facility] Serum or plasma albumin/glob ulin mass ratioOrdered By: Alberto Garrett on 07-19-2023 Albumin/Globulin [Mass ratio] 0.9 {ratio} 0.9-2.4 [facility] Serum or plasma calcium estephania urement (mass/volume)Ordered By: Alberto Garrett on 07-19-2023 Calcium [Mass/Vol] 9.4 mg/dL 8.5-10.1 [facility] Serum or plasma cholesterol in HDL measurement (mass/volume)Ordered By: Albreto Garrett on 07-19-2023 Cholesterol in HDL [Mass/Vol] 84 mg/dL >40 [facility] Comment on above: The drugs N-Acetylcy steine and Metamizole may falsely depress this assay. Reference Range HDL <40 mg/dL Low HDL Cholesterol HDL >or= 60 mg/dL High HDL Cholesterol Serum or plasma cholesterol in VLDL measurement (mass/volume)Ordered By: Alberto Garrett on 07-19-2023 Cholesterol in VLDL [Mass/Vol] 20 mg/dL 5-40 [facility] Serum or plasma creatinine m easurement (mass/volume)Ordered By: Alberto Garrett on 07-19-2023 Creatinine [Mass/Vol] 0.90 mg/dL 0.55-1.02 [facility] Comment on above: The validity of the calculated GFR & GFRAA in patients over 70 years has not been determined. Clinical correlation is essential. Serum or plasma low density lipoprotein (LDL) cholesterol measurement (mass/volume)Ordered By: Alberto Garrett on 07-19-2023 Cholesterol in LDL [Mass/Vol] 73 mg/dL 0-130 [facility] Serum or plasma urea nitroge n measurement (mass/volume)Ordered By: Alberto Garrett on 07-19-2023 Urea nitrogen [Mass/Vol] 16 mg/dL 7-18 [facility] Thin prep Papanicolaou smear with manual screeningOrdered By: Alberto Garrett on 07-19-2023 Thin prep Papanicolaou smear with manual screening 30 U/L 15-37 [facility] Thin prep Papanicolaou smear with manual screening 5 5-15 [facility] Basophil percentageon 2021 Chloride [Moles/Vol] 110 mmol/L 98-107 [facility] Work Phone: Glucose [Mass/Vol] 100 mg/dL 74-106 [facility] Work Phone: Comment on above: Fasting Glucose resu lt from 100 to 125 mg/dL suggests IMPAIRED HOMEOSTASIS per A.D.A. criteria. Potassium [Moles/Vol] 4.3 mmol/L 3.5-5.1 [facility] Work Phone: Sodium [Moles/Vol] 141 mmol/L 136-145 [facility] Work Phone: Laboratory - Chemistry and C hemistry - challengeon 02-26-2022 CO2 [Moles/Vol] 28.0 mmol/L 21.0-32.0 [facility] Work Phone: Urea nitrogen/Creatinine [Mass ratio] 20.1 mg/mg 10-20 [facility] Work Phone: No Panel Informationon 02-26 Estimated GFR (MDRD) Amer 82 mL/min >60 [facility] Work Phone: Comment on above: GFR Calc Estimated GFR (MDRD) Non-Af Amer 67 mL/min >60 [facility] Work Phone: Comment on above: Non- GFR Calc Serum or plasma calcium estephania urement (mass/volume)on 02-26-2022 Calcium [Mass/Vol] 9.3 mg/dL 8.5-10.1 [facility] Work Phone: Serum or plasma creatinine m easurement (mass/volume)on 02-26-2022 Creatinine [Mass/Vol] 0.90 mg/dL 0.55-1.02 [facility] Work Phone: Comment on above: The validity of the calculated GFR & GFRAA in patients over 70 years has not been determined. Clinical correlation is essential. Serum or plasma urea nitroge n measurement (mass/volume)on 02-26-2022 Urea nitrogen [Mass/Vol] 18 mg/dL 03-02 [facility] Work Phone: Thin prep Papanicolaou smear with manual screeningon 02-26-2022 Thin prep Papanicolaou smear with manual screening 3 12-28 [facility] Work Phone: No Panel Informationon 12-25 Pap Smear Test Ordered See comment [facility] Work Phone: Comment on above: IGP, [...] image guided system. Performed by Sally Ca Gambling Floor Supervisor (ASCP) This nucleic acid amplification test detects fourteen high-risk HPV types (16,18,31,33,35,39,45,51,52,56,58,59,66,68) without differentiation.HPV Results: HPV Aptima: Negative ___ [facility]. ORIGINAL REPORT ON FILE IN LAB CONTAINS ADDITIONAL TEST SITE INFORMATION. Pathology report final diagnosis Narrative Not Reportable [facility] Work Phone: Absolute lymphocyte counton 09-02-2021 Lymphocytes Auto (Unsp spec) [#/Vol] 1.99 10*3/uL 0.83-4.51 [facility] Work Phone: Basophil percentageon 2021 Basophils/100 WBC (Bld) 0.6 % 0-[address] [facility] Work Phone: Bilirubin [Mass/Vol] 0.60 mg/dL 0.20-1.00 [facility] Work Phone: Comment on above: For patients on eltr ombopag therapy, use of Dimension [place] TBIL is not recommended. Chloride [Moles/Vol] 104 mmol/L 98-107 [facility] Work Phone: Cholesterol [Mass/Vol] 175 mg/dL <200 [facility] Work Phone: Comment on above: <200 mg/dL Desirable 200-240 mg/dL Borderline >240 mg/dL High Risk Eosinophils/100 WBC (Bld) 1.8 % 0-5 [facility] Work Phone: Glucose [Mass/Vol] 82 mg/dL 74-106 [facility] Work Phone: Neutrophils (Bld) [#/Vol] 3.8 10*3/uL 2.0-7.7 [facility] Work Phone: Neutrophils/100 WBC (Bld) 59.2 % 47-70 [facility] Work Phone: Potassium [Moles/Vol] 4.5 mmol/L 3.5-5.1 [facility] Work Phone: Protein [Mass/Vol] 7.7 g/dL 6.4-8.2 [facility] Work Phone: [phone] Sodium [Moles/Vol] 139 mmol/L 136-145 [facility] Work Phone: [phone] Triglyceride [Mass/Vol] 72 mg/dL [facility] Work Phone: [phone] Comment on above: The drugs N-Acetylcy steine and Metamizole may falsely depress this assay.Serum Triglycerides Reference Interval Normal <150 mg/dL Borderline high 150 - 199 mg/dL High 200 - 499 mg/dL Very High > or = 500 mg/dL WBC (Bld) [#/Vol] 6.5 10*3/uL 4.4-11.0 [facility] Work Phone: [phone] Blood erythrocytes count (nu mber/volume)on 09-02-2021 RBC (Bld) [#/Vol] 4.27 10*6/uL 4.2-5.4 [facility] Work Phone: [phone] Blood hemoglobin measurement (mass/volume)on 09-02-2021 Hemoglobin (Bld) [Mass/Vol] 12.5 g/dL 12.0-15.0 [facility] Work Phone: Blood lymphocytes/100 leukoc yteson 09-02-2021 Lymphocytes/100 WBC (Bld) 30.6 % 19-41 [facility] Work Phone: [phone] Blood monocytes/100 leukocyt eson 09-02-2021 Monocytes/100 WBC (Bld) 7.5 % 0-[address] [facility] Work Phone: [phone] Blood platelet mean volumeon 09-02-2021 Platelet mean volume (Bld) [Entitic vol] 10.7 fL 6.2-12.0 [facility] Work Phone: [phone] Determination of erythrocyte mean corpuscular volume (MCV)on 09-02-2021 MCV (RBC) [Entitic vol] 91.8 fL 81-[address] [facility] Work Phone: [phone] Hematocrit Auto (Bld) [Volum e fraction]on 09-02-2021 Hematocrit (Bld) [Volume fraction] 39.2 % 37-47 [facility] Work Phone: [phone] Laboratory - Chemistry and C hemistry - challengeon 09-02-2021 ALP [Catalytic activity/Vol] 81 U/L 45-117 [facility] Work Phone: [phone] ALT [Catalytic activity/Vol] 32 U/L 13-56 [facility] Work Phone: [phone] CO2 [Moles/Vol] 30.0 mmol/L 21.0-32.0 [facility] Work Phone: [phone] Globulin (S) [Mass/Vol] 4.0 g/dL 2.2-4.[address] [facility] Work Phone: [phone] Urea nitrogen/Creatinine [Mass ratio] 21.3 mg/mg 10-20 [facility] Work Phone: [phone] Laboratory - Hematology and Cell countson 09-02-2021 Erythrocyte distribution width (RBC) [Entitic vol] 41.1 fL 35.1-43.9 [facility] Work Phone: [phone] Erythrocyte distribution width (RBC) [Ratio] 12.4 % 11.6-14.6 [facility] Work Phone: [phone] Immature granulocytes/100 WBC (Bld) 0.300 % 0.0-0.9 [facility] Work Phone: [phone] Comment on above: IG% - Immature Granu locytes (promyelocytes, myelocytes and metamyelocytes) > 1% indicates that a LEFT SHIFT is Present. MCH (RBC) [Entitic mass] 29.3 pg 27.0-32.0 [facility] Work Phone: [phone] Nucleated RBC/100 WBC (Bld) [Ratio] 0 % 0-5 [facility] Work Phone: [phone] MCHC Auto (RBC) [Mass/Vol]on 09-02-2021 MCHC (RBC) [Mass/Vol] 31.9 g/dL 32-36 [facility] Work Phone: [phone] Panel Informationon 09-02 Estimated GFR (MDRD) Amer 77 mL/min >60 [facility] Work Phone: Comment on above: GFR Calc Estimated GFR (MDRD) Non-Af Amer 64 mL/min >60 [facility] Work Phone: Comment on above: Non- GFR Calc Platelets bldon 09-02-2021 Platelets (Bld) [#/Vol] 325 10*3/uL 150-450 [facility] Work Phone: Serum or plasma albumin estephania urement (mass/volume)on 09-02-2021 Albumin [Mass/Vol] 3.7 g/dL 3.2-5.0 [facility] Work Phone: [phone] Serum or plasma albumin/glob ulin mass ratioon 09-02-2021 Albumin/Globulin [Mass ratio] 0.9 {ratio} 0.9-2.4 [facility] Work Phone: Serum or plasma calcium estephania urement (mass/volume)on 09-02-2021 Calcium [Mass/Vol] 9.3 mg/dL 8.5-10.1 [facility] Work Phone: Serum or plasma cholesterol in HDL measurement (mass/volume)on 09-02-2021 Cholesterol in HDL [Mass/Vol] 77 mg/dL [facility] Work Phone: Comment on above: The drugs N-Acetylcy steine and Metamizole may falsely depress this assay. Reference Range HDL <40 mg/dL Low HDL Cholesterol HDL >or= 60 mg/dL High HDL Cholesterol Serum or plasma cholesterol in VLDL measurement (mass/volume)on 09-02-2021 Cholesterol in VLDL [Mass/Vol] 14 mg/dL 5-40 [facility] Work Phone: [phone] Serum or plasma creatinine m easurement (mass/volume)on 09-02-2021 Creatinine [Mass/Vol] 0.94 mg/dL 0.55-1.02 [facility] Work Phone: Comment on above: The validity of the calculated GFR & GFRAA in patients over 70 years has not been determined. Clinical correlation is essential. Serum or plasma low density lipoprotein (LDL) cholesterol measurement (mass/volume)on 09-02-2021 Cholesterol in LDL [Mass/Vol] 84 mg/dL 0-130 [facility] Work Phone: Serum or plasma urea nitroge n measurement (mass/volume)on 09-02-2021 Urea nitrogen [Mass/Vol] 20 mg/dL 7-18 [facility] Work Phone: Thin prep Papanicolaou smear with manual screeningon 09-02-2021 Thin prep Papanicolaou smear with manual screening 21 U/L 15-37 [facility] Work Phone: Thin prep Papanicolaou smear with manual screening 5 5-15 [facility] Work Phone: Vital Signs Date Time Vital Sign Value Performing Clinician Gregory gonzalez 01-19-2025 08:05-0400 Body height 167.[address] Alberto Garrett MD Work Phone: [facility] 01-19-2025 08:05-0400 Body mass index (BMI) [Ratio] 26.3 kg/m2 Dr. Alberto Garrett MD Work Phone: [facility] 01-19-2025 08:05-0400 Body temperature 97.1 [degF] Dr. Alberto Garrett MD Work Phone: [facility] 01-19-2025 08:05-0400 Body weight 73.[address] Alberto Garrett MD Work Phone: [facility] 01-19-2025 08:05-0400 Diastolic blood pressure 80 mm[Hg] Dr. Alberto Garrett MD Work Phone: [facility] 01-19-2025 08:05-0400 Heart rate 92 /min Dr. Alberto Garrett MD Work Phone: [facility] 01-19-2025 08:05-0400 Respiratory rate 16 /min Dr. Alberto Garrett MD Work Phone: [facility] 01-19-2025 08:05-0400 SaO2% (BldA) [Mass fraction] 96 % Dr. Alberto Garrett MD Work Phone: [facility] 01-19-2025 08:05-0400 Systolic blood pressure 132 mm[Hg] Dr. Alberto Garrett MD Work Phone: [facility] 12-27-2024 08:14-0400 Body height 167.[address] Alberto Garrett MD Work Phone: [facility] 12-27-2024 08:14-0400 Body mass index (BMI) [Ratio] 26.4 kg/m2 Dr. Alberto Garrett MD Work Phone: [facility] 12-27-2024 08:14-0400 Body temperature 97.5 [degF] Dr. Alberto Garrett MD Work Phone: [facility] 12-27-2024 08:14-0400 Body weight 74.[address] Alberto Garrett MD Work Phone: [facility] 12-27-2024 08:14-0400 Diastolic blood pressure 82 mm[Hg] Dr. Alberto Garrett MD Work Phone: [facility] 12-27-2024 08:14-0400 Heart rate 67 /min Dr. Alberto Garrett MD Work Phone: [facility] 12-27-2024 08:14-0400 Respiratory rate 16 /min Dr. Alberto Garrett MD Work Phone: [facility] 12-27-2024 08:14-0400 Systolic blood pressure 126 mm[Hg] Dr. Alberto Garrett MD Work Phone: [facility] 07-19-2024 09:16-0500 Body height 167.[address] Alberto Garrett MD Work Phone: [facility] 07-19-2024 09:16-0500 Body mass index (BMI) [Ratio] 26.4 kg/m2 Dr. Alberto Garrett MD Work Phone: [facility] 07-19-2024 09:16-0500 Body temperature 98.4 [degF] Dr. Alberto Garrett MD Work Phone: [facility] 07-19-2024 09:16-0500 Body weight 74.[address] Alberto Garrett MD Work Phone: [facility] 07-19-2024 09:16-0500 Diastolic blood pressure 80 mm[Hg] Dr. Alberto Garrett MD Work Phone: [facility] 07-19-2024 09:16-0500 Heart rate 90 /min Dr. Alberto Garrett MD Work Phone: [facility] 07-19-2024 09:16-0500 Respiratory rate 17 /min Dr. Alberto Garrett MD Work Phone: [facility] 07-19-2024 09:16-0500 SaO2% (BldA) [Mass fraction] 98 % Dr. Alberto Garrett MD Work Phone: [facility] 07-19-2024 09:16-0500 Systolic blood pressure 128 mm[Hg] Dr. Alberto Garrett MD Work Phone: [facility] 07-19-2023 10:02-0500 Body height 167.[address] Alberto Garrett Work Phone: [facility] 07-19-2023 10:02-0500 Body mass index (BMI) [Ratio] 26.2 kg/m2 Dr. Alberto Garrett Work Phone: [facility] 07-19-2023 10:02-0500 Body temperature 97.5 [degF] Dr. Alberto Garrett Work Phone: [facility] 07-19-2023 10:02-0500 Body weight 73.[address] Alberto Garrett Work Phone: [facility] 07-19-2023 10:02-0500 Diastolic blood pressure 80 mm[Hg] Dr. Alberto Garrett Work Phone: [facility] 07-19-2023 10:02-0500 Heart rate 74 /min Dr. Alberto Garrett Work Phone: [facility] 07-19-2023 10:02-0500 Respiratory rate 16 /min Dr. Alberto Garrett Work Phone: [facility] 07-19-2023 10:02-0500 SaO2% (BldA) [Mass fraction] 97 % Dr. Alberto Garrett Work Phone: [facility] 07-19-2023 10:02-0500 Systolic blood pressure 136 mm[Hg] Dr. Alberto Garrett Work Phone: [facility] 02-26-2022 12:55-0400 Body height 167.[address] Alberto Garrett Work Phone: [facility] Work Phone: 02-26-2022 12:55-0400 Body mass index (BMI) [Ratio] 27.4 kg/m2 Dr. Alberto Garrett Work Phone: [facility] Work Phone: 02-26-2022 12:55-0400 Body temperature 97 [degF] Dr. Alberto Garrett Work Phone: [facility] Work Phone: 02-26-2022 12:55-0400 Body weight 77.[address] Alberto Garrett Work Phone: [facility] Work Phone: 02-26-2022 12:55-0400 Diastolic blood pressure 78 mm[Hg] Dr. Alberto Garrett Work Phone: [facility] Work Phone: 02-26-2022 12:55-0400 Heart rate 79 /min Dr. Alberto Garrett Work Phone: [facility] Work Phone: 02-26-2022 12:55-0400 Respiratory rate 16 /min Dr. Alberto Garrett Work Phone: [facility] Work Phone: 02-26-2022 12:55-0400 SaO2% (BldA) [Mass fraction] 97 % Dr. Alberto Garrett Work Phone: [facility] Work Phone: 02-26-2022 12:55-0400 Systolic blood pressure 126 mm[Hg] Dr. Alberto Garrett Work Phone: [facility] Work Phone: 12-25-2021 10:11-0400 Body mass index (BMI) [Ratio] 27.3 kg/m2 Dr. Alberto Garrett Work Phone: [facility] Work Phone: 12-25-2021 10:11-0400 Body weight 76.[address] Alberto Garrett Work Phone: [facility] Work Phone: 12-25-2021 10:11-0400 Diastolic blood pressure 70 mm[Hg] Dr. Alberto Garrett Work Phone: [facility] Work Phone: 12-25-2021 10:11-0400 Systolic blood pressure 124 mm[Hg] Dr. Alberto Garrett Work Phone: [facility] Work Phone: 12-25-2021 10:11-0400 Body height 167.[address] Alberto Garrett Work Phone: [facility] Work Phone: 12-25-2021 10:11-0400 Body mass index (BMI) [Ratio] 27.3 kg/m2 Dr. Alberto Garrett Work Phone: [facility] Work Phone: 12-25-2021 10:11-0400 Body weight 76.[address] Alberto Garrett Work Phone: [facility] Work Phone: 12-25-2021 10:11-0400 Diastolic blood pressure 70 mm[Hg] Dr. Alberto Garrett Work Phone: [facility] Work Phone: 12-25-2021 10:11-0400 Systolic blood pressure 124 mm[Hg] Dr. Alberto Garrtet Work Phone: [facility] Work Phone: 11-18-2021 14:36-0400 Body mass index (BMI) [Ratio] 27.4 kg/m2 Dr. Alberto Garrett Work Phone: [facility] Work Phone: 11-18-2021 14:36-0400 Body temperature 98 [degF] Dr. Alberto Garrett Work Phone: [facility] Work Phone: 11-18-2021 14:36-0400 Body weight 77.[address] Alberto Garrett Work Phone: [facility] Work Phone: 11-18-2021 14:36-0400 Diastolic blood pressure 82 mm[Hg] Dr. Alberto Garrett Work Phone: [facility] Work Phone: 11-18-2021 14:36-0400 Heart rate 73 /min Dr. Alberto Garrett Work Phone: [facility] Work Phone: 11-18-2021 14:36-0400 Respiratory rate 14 /min Dr. Alberto Garrett Work Phone: [facility] Work Phone: 11-18-2021 14:36-0400 SaO2% (BldA) [Mass fraction] 97 % Dr. Alberto Garrett Work Phone: [facility] Work Phone: 11-18-2021 14:36-0400 Systolic blood pressure 148 mm[Hg] Dr. Alberto Garrett Work Phone: [facility] Work Phone: 11-18-2021 14:36-0400 Body mass index (BMI) [Ratio] 27.4 kg/m2 Dr. Alberto Garrett Work Phone: [facility] Work Phone: 11-18-2021 14:36-0400 Body temperature 98 [degF] Dr. Alberto Garrett Work Phone: [facility] Work Phone: 11-18-2021 14:36-0400 Body weight 77.[address] Alberto Garrett Work Phone: [facility] Work Phone: 11-18-2021 14:36-0400 Diastolic blood pressure 82 mm[Hg] Dr. Alberto Garrett Work Phone: [facility] Work Phone: 11-18-2021 14:36-0400 Heart rate 73 /min Dr. Alberto Garrett Work Phone: [facility] Work Phone: 11-18-2021 14:36-0400 Respiratory rate 14 /min Dr. Alberto Garrett Work Phone: [facility] Work Phone: 11-18-2021 14:36-0400 SaO2% (BldA) [Mass fraction] 97 % Dr. Alberto Garrett Work Phone: [facility] Work Phone: 11-18-2021 14:36-0400 Systolic blood pressure 148 mm[Hg] Dr. Alberto Garrett Work Phone: [facility] Work Phone: 10-30-2021 10:08-0400 Body temperature 96.9 [degF] Dr. Alberto Garrett Work Phone: [facility] Work Phone: 10-30-2021 10:08-0400 Diastolic blood pressure 76 mm[Hg] Dr. Alberto Garrett Work Phone: [facility] Work Phone: 10-30-2021 10:08-0400 Heart rate 68 /min Dr. Alberto Garrett Work Phone: [facility] Work Phone: 10-30-2021 10:08-0400 Respiratory rate 16 /min Dr. Alberto Garrett Work Phone: [facility] Work Phone: 10-30-2021 10:08-0400 SaO2% (BldA) [Mass fraction] 100 % Dr. Alberto Garrett Work Phone: [facility] Work Phone: 10-30-2021 10:08-0400 Systolic blood pressure 144 mm[Hg] Dr. Alberto Garrett Work Phone: [facility] Work Phone: 10-30-2021 07:25-0400 Body mass index (BMI) [Ratio] 27 kg/m2 Dr. Alberto Garrett Work Phone: [facility] Work Phone: 10-30-2021 07:25-0400 Body weight [address] Alberto Garrett Work Phone: [facility] Work Phone: Encounters Encounter Date Encounter Type Care Provider Facility Start: 02-15-2025 ambulatory Alberto Castanovitoe Facili ty:[facility] Start: 02-13-2025 ambulatory Efever Blance Facili ty:[facility] Start: 02-01-[address] Ifrah Garrett MD -Physical Therapy Work Phone: Start: 01-29-2025 End: 01-29-2025 Patient encounter procedure Yang Cummings DPM -Radiology [facility] Work Phone: Start: 01-29-2025 End: 01-29-[address] Alberto Garrett MD Work Phone: [facility] Work Phone: Start: 01-29-2025 End: 01-29-2025 ambulatory [facility] Facility:[facility] Start: 01-23-[address] Ifrah Garrett MD -Physical Therapy Work Phone: Start: 01-19-2025 End: 01-19-[address] Alberto Garrett MD -[facility] Work Phone: Start: 01-19-2025 End: 01-19-[address] Alberto Garrett MD Work Phone: [facility] Work Phone: Start: 01-19-2025 End: 01-19-2025 ambulatory [facility] Facility:[facility] Start: 12-27-2024 End: 12-27-2024 Patient encounter procedure Brandan ALANIS -[facility] Work Phone: Start: 12-27-2024 End: 12-27-[address] Alberto Garrett MD Work Phone: [facility] Work Phone: Start: 12-21-2024 Non-patient / Non-visit Dr. Christopher Phillips MD -[facility] Start: 12-21-2024 ambulatory Christopher Phillips Facility:[facility] Start: 12-21-2024 Registered Referred Self [facility] Work Phone: Start: 10-19-2024 End: 10-19-[address] Alberto Garrett MD Work Phone: [facility] Work Phone: Start: 10-19-2024 End: 10-19-[address] Alberto Garrett MD -Outpatient Breast Imaging Work Phone: Start: 10-19-2024 End: 10-19-2024 ambulatory Alberto Garrett Facility:[facility] Start: 07-19-2024 Encounter for genera l adult medical examination without abnormal [facility] Start: 07-19-2024 End: 07-19-[address] Alberto Garrett MD -[facility] Work Phone: Start: 07-19-2024 End: 07-19-[address] Alberto Garrett MD [facility] Start: 07-19-2024 End: 07-19-2024 ambulatory [facility] Facility:[facility] Start: 07-19-2024 End: 07-19-2024 ambulatory [facility] Start: 04-06-2024 End: 04-06-2024 ambulatory Brandan ALANIS Facility:[facility] Start: 08-26-2023 End: 08-26-[address] Alberto Garrett Work Phone: [facility] Work Phone: Start: 08-26-2023 End: 08-26-[address] Alberto Garrett Work Phone: [facility] Work Phone: Start: 07-19-[address] Alberto Garrett Work Phone: [facility] Start: 07-19-2023 End: 07-19-[address] Alberto Garrett Work Phone: [facility] Work Phone: Start: 07-19-2023 End: 07-19-2023 Encounter for general adult medical examination without abnormal findings Dr. Alberto Garrett Work Phone: [facility] Start: 07-19-2023 End: 07-19-[address] Alberto Garrett Work Phone: [facility] Work Phone: Start: 07-16-2022 End: 07-16-2022 ambulatory [facility] Work Phone: Start: 07-16-2022 End: 07-16-2022 Patient encounter procedure [facility] Start: 02-26-2022 End: 02-26-[address] Alberto Garrett Work Phone: [facility] Start: 12-25-2021 End: 12-25-[address] Alberto Garrett Work Phone: [facility] Start: 11-18-2021 End: 11-18-[address] Alberto Garrett Work Phone: [facility] Start: 10-30-2021 Non-patient / Non-visit Dr. Alberto Garrett Work Phone: [facility] Start: 10-30-2021 End: 10-30-2021 Admission to same day surgery center Dr. Alberto Garrett Work Phone: [facility]-Endoscopy Start: 09-12-2021 End: 09-12-[address] Alberto Garrett Work Phone: [facility] Start: 09-02-2021 End: 09-02-[address] Alberto Garrett Work Phone: [facility] Procedures Date Procedure Procedure Detail Performing Clinician Start: 01-29-2025 Plain x-ray for bone length measurement Dr. Alberto Garrett MD Work Phone: Start: 01-19-2025 End: 01-19-2025 XR knee, [address] Alberto Garrett MD Work Phone: Start: 10-19-2024 Screening mammography Zoltan Garrett MD Work Phone: Start: 08-26-2023 Dual energy X-ray absorptiometry Dr. Alberto Garrett Work Phone: Start: 08-26-2023 Screening mammography Zoltan Garrett Work Phone: Start: 07-16-2022 Screening mammography Plan of Treatment Date Care Activity Detail Author Start: 01-19-2025 XR Knee 3 Views [facility] Start: 01-19-2025 XR knee, 3 views Knee 3 Views [facility] Start: 01-19-2025 Basic metabolic 2008 panel with ionized calcium - Serum or Plasma [facility] Start: 10-30-2021 Colonoscopy w/biopsy single/multiple COLONOSCOPY AND BIOPSY [facility] Work Phone: Start: 10-30-2021 Colsc flx w/rmvl of tumor polyp lesion snare tq COLONOSCOPY W/LESION REMOVAL [facility] Work Phone: Anion gap in Serum o r Plasma [facility] BUN/Creatinine ratio [facility] Calcium [Mass/volume ] in Serum or Plasma [facility] Carbon dioxide, tota l [Moles/volume] in Central venous blood [facility] Creatinine [Mass/vol ume] in Serum or Plasma [facility] CT angiography of coronary arteries [facility] DXA Bone [Mass/Area] Bone density [facility] Glucose [Mass/volume ] in Serum or Plasma [facility] Measurement of renal function [facility] MG Breast - bilatera l Screening [facility] Work Phone: MG Breast - bilatera l Screening [facility] Patient referral [facility] Work Phone: Potassium measurement [facility] Serum chloride measurement [facility] Sodium measurement [facility] Urea nitrogen [Mass/volume] in Serum or Plasma [facility] Immunizations Immunization Date Immunization Notes Care Provider [facility] 07-19-2024 Seasonal trivalent influenza vaccine, adjuvanted, preservative free Dr. Alberto Garrett MD Work Phone: [facility] 07-19-2023 influenza, injectabl e, quadrivalent, preservative free Dr. Alberto Garrett Work Phone: [facility] 11-07-2020 Covid (Moderna) Dr. Regina Garrett Work Phone: [facility] 10-10-2020 Covid (Modern) Dr. Regina Garrett Work Phone: [facility] Payers Date Payer Category Payer Self-pay [id number] 2024 Unknown [id number] [facility] [id number] 2023 Medicare [id number] 2015 Unknown [id number] Unknown [id number] Unknown [id number] 2.16.8 [id number] Unknown [id number] 2.16.8 [id number] Unknown [id number] 2.16.8 [id number] Unknown [id number] 2.16.8 [id number] Unknown [id number] 2.16.8 [id number] Unknown [id number] 2.16.8 [id number] Unknown [id number] 2.16.8 [id number] Unknown [id number] 2.16.8 [id number] Unknown [id number] 2.16.8 [id number] Unknown [id number] 2.16.8 [id number] Unknown [id number] 2.16.8 [id number] Unknown [id number] 2.16.8 [id number] Unknown [id number] 2.16.8 [id number] Unknown [id number] 2.16.8 [id number] Social History Date Type Detail Facility [facility] Work Phone: Start: 12-25-2021 End: 07-19-2023 Tobacco smoking status NHIS Unknown if ever smoked [facility] Start: 1960 Sex Assigned At Female [facility] Start: 07-19-2023 Tobacco smoking stat us NHIS Never smoked tobacco (finding) [facility] Start: 10-31-2024 Sex Female (finding) [facility] Mental Status Date Assessment Result Facility 10-30-2021 Cognitive function Voice/Name [facility] Work Phone: Radiology Diagnostic study note 01-31-2025 Note Date & Type Note Facility 01-31-2025 Radiology Diagnostic study note [facility] Imaging Services [address] [place] [place], [place] [id number] Bone Length MR#: [id number] Acct: [id number] Name: DARLYN ESCOBAR Rep #: [id number] : 1960 F 64 From: Mirian Hart MD PCP: Dr. Alberto Garrett MD Status: R EG CLI Study:Bone Length Date of Exam: 01/29/25 Exam# [id number] Ordering Dr: Yang Cummings DPM PROCEDURE: BONE LENGTH 01/29/2025 REASON FOR EXAM: UNEQUAL LIMB LENGTH F, age 64 y/o . TECHNIQUE: BONE LENGTH COMPARISON: None FINDINGS: The right femur measures 44.92 cm from the top of the articular surface of the femoral head to the intercondylar fossa. The left femur measures 44.92 cm from the top of the articular surface of the femoral head to the intercondylar fossa. The right tibia measures 36.87 cm from the top of the tibial spine to the mid aspect of the tibial plafond. The left tibia measures 36.89 cm from the top of the tibial spine to the mid aspect of the tibial plafond. The femurs, tibia and fibula as well as the visualized ankle joints are normal. RAD/Bone Length IMPRESSION: Normal bones of the lower extremities without length discrepancy. Reading Location: [facility] CC: ROSEMARIE Cummings; Dr. Alberto Garrett MD ~ Industrial/Organizational Psychologist: Signed [facility] Radiology Diagnostic study note 01-19-2025 Note Date & Type Note Facility 01-19-2025 Radiology Diagnostic study note [facility] Imaging Services [address] [place] [address] Knee 3 Views MR#: [id number] Acct: [id number] Name: DARLYN ESCOBAR Rep #: [id number] : 1960 F 64 From: Yarely Reyes MD PCP: Dr. Alberto Garrett MD Status: R EG CLI Study:Knee 3 Views Date of Exam: 5 Exam# [id number] Ordering Dr: Alcon Garrett MD EXAM: XR Right Knee, 3 Views CLINICAL INDICATION: BILATERAL KNEE PAIN TECHNIQUE: Three views of the right knee. COMPARISON: No relevant prior studies available. FINDINGS: BONES/JOINTS: Mild tricompartmental degenerative changes of the knee joint. Noacute fracture. No dislocation. SOFT TISSUES: Soft tissue swelling. RAD/Knee 3 Views IMPRESSION: Degenerative changes as above. Reading Location: [facility] CC: Dr. Alberto Garrett MD ~ Industrial/Organizational Psychologist: Signed [facility] Radiology Diagnostic study note 01-19-2025 Note Date & Type Note Facility 01-19-2025 Radiology Diagnostic study note [facility] Imaging Services [address] [place], [place] [id number] Knee 3 Views MR#: [id number] Acct: [id number] Name: DARLYN ESCOBAR Rep #: [id number] : 1960 F 64 From: Yarely Reyes MD PCP: Dr. Alberto Garrett MD Status: R EG CLI Study:Knee 3 Views Date of Exam: 5 Exam# [id number] Ordering Dr: Alcon Garrett MD EXAM: XR Left Knee, 3 Views CLINICAL INDICATION: BILATERAL KNEE PAIN TECHNIQUE: Three views of the left knee. COMPARISON: No relevant prior studies available. FINDINGS: BONES/JOINTS: Unremarkable. No acute fracture. No dislocation. SOFT TISSUES: Unremarkable. RAD/Knee 3 Views IMPRESSION: No acute fracture. Reading Location: [facility] CC: Dr. Alberto Garrett MD ~ Industrial/Organizational Psychologist: Signed [facility] Evaluation note 12-27-2024 Note Date & Type [...] 7:57am Hyperlipidemia chronic January 19, 2025 7:57am [facility] Work Phone: Evaluation note 07-19-2024 Note Date & Type Note Facility 07-19-2024 Evaluation note Diagnosis Onset Date Resolution Health care maintenance acute D ec2023 9:09am Essential hypertension chronic De cem2023 9:09am Hyperlipidemia chronic July 192023 9:09am [facility] Work Phone: Evaluation note Note Date & Type Note Facility Evaluation note Diagnosis Onset Date Colitis determined by colorectal biopsy acute [facility] Work Phone: Evaluation note Note Date & Type Note Facility Evaluation note Diagnosis Onset Date Colitis determined by colorectal biopsy acute Encounter for routine gyneco logical examination noneactive Colitis determined by colorectal biopsy acute Essential hypertension chron ic [facility] Work Phone: Evaluation note Note Date & Type Note Facility Evaluation note No assessment information availa ble [facility] Work Phone: Evaluation note Note Date & Type Note Facility Evaluation note Diagnosis Onset Date Health care maintenance acut e Essential hypertension chron ic Hyperlipidemia chronic [facility] Work Phone: Reason for referral (narrative) Note Date & Type Note Facility Reason for referral (narrative) No reason for referral information available [facility] Work Phone: Chief Complaint and Reason for Visit Chief Complaint OA SCANNING ONLY DISCUSS COLONOSCOPY RESULTS Annual ([employer]) Reason for Visit Colitis determined b y colorectal biopsy Chief Complaint DISCUSS COLONOSCOPY RESULTS Annual ([employer]) 6 M FU Reason for Visit Colitis determined b y colorectal biopsy Encounter for routine gynecological examination Colitis determined by colorectal biopsy Essential hypertension Chief Complaint SCREENING Chief Complaint yearly [facility] Ess[facility] Hyperlipidemia Chief Complaint yearly POSTMENOPAUSAL, SCREENING Reason for [facility] Ess[facility] Hyperlipidemia Chief Complaint Admit [...] PAIN/RX HERE January 23, 2025 7:27 am Chief Complaint Admit Date SCREENING October 19, 2024 8:53 am SCREENING December 21, 2024 9:00am Acute-ache behind knees December 27, 2024 7 :58am 6 M FU January 19, 2025 7:57a m ADD BILATERAL KNEES January 19, 2025 8:30a m TETLIN LENGTH DISCREPANCY January 29, 2025 9:21am LUIS CARLOS KN PAIN/RX HERE February 01, 2025 7:30 am Family History No Family History Records [...] Yes October 28, 2021 11:40am Power of Senior Payroll Specialist Yes October 28 11:40am Advance Directive Response Recorded Date/ Time Living Will Yes October 28, 2021 10:40am Power of Senior Payroll Specialist Yes October 28 10:40am Summary Purpose Additional [...] 2024 Self Referred Referring Provider Active Start: M ay 2024 Team Status: Active Member Role [...] Referring Provider Active Start: January 23, 2025 Team Status: Inactive Member Role Status Dates Dr. Alberto Garrett MD Primary Care Provider Active Start: January 29, 2025 End: January 29, 2025 Dr. Yang Cummings DPM Attending Provider Active Start: January 29, 2025 End: January 29, 2025 Dr. Yang Cummings DPM Referring Provider Active Start: January 29, 2025 End: January 29, 2025 Team Status: Active Member Role Status Dates Dr. Alberto Garrett MD Primary Care Provider Active Start: February 01, 2025 Dr. Alberto Garrett MD Attending Provider Active Start: February 01, 2025 Dr. Alberto Garrett MD Referring Provider Active Start: February 01, 2025 INFORMATION SOURCE (unrecogn ized section and content) DATE CREATED AUTHOR 02/14/2025 [facility] FOR RECORDS PERTAINING TO PATIENTS WHO ARE [...] BE BASED ON THE PRIMARY CLINICAL RECORDS. [employer] [facility]. provides no warranty or guarantee of the accuracy or completeness of information in this document.
--- OUTSIDE RECORDS SUMMARY | 2025-02-15 07:40 | XMS RPT_ITS | CCD ---
Author Organization [facility] Care Team Providers Care Bulb Grader Name Role Phone Dr. Alberto Garrett Primary [...] Alberto Garrett Attending Provider [phone] [address] Alberto Garrett Referring Provider [phone] Dr. Alberto Garrett [...] White Attending Provider Brandan Aguirre Attending Provider [phone] Emiliano HOUSTON, Dr. Soria Attending Provider [phone] Emiliano HOUSTON, Dr. Soria Referring Provider Oleghe, [...] (10 sources) Povidone-Iodine Drug Allergy 2 Rash [facility] (11 sources) Sulfonamides (Antibiotic); Translations: [Sulfa (Sulfonamide Antibiotics)] Allergy to substance 2 Unknown [facility] (11 sources) soap; Translations: [soap] Allergy to substance 2 Rash [facility] (1 source) Povidone-Iodine Drug Allergy 5 [facility] Repository Medications Current Medications Medication Drug [...] Range Facility Bone Lengthon 01-29-2025 Bone Length [facility] [address] [address] Bone Length MR#: [id number] Acct: [id number] Name: DARLYN ESCOBAR Rep #: [id number] : 1960 F 64 From: Keyanna orellana MD PCP: Dr. Alberto Garrett MD Status: REG CLI Study: Bone Length Date of Exam: 01/29/25 Exam# [id number] Ordering Dr: Yang Cummings DPM PROCEDURE: BONE [...] CC: ROSEMARIE Cummings; Dr. Alberto Garrett MD Drinking Water Technician: Signed Normal [facility] Inital Evaluation (1) - PTon 01-23-2025 Inital Evaluation (1) - PT [facility] Physical Therapy [facility] [address] [place] [address]. [address] [place] [address] / REHABILITATION SERVICES INITIAL EVALUATION MR#: [id number] Acct: [id number] Name: DARLYN ESCOBAR Rep #: [id number] : 1960 64 From: Allie Altman DPT Referring Dr.: Dr. Alberto Garrett MD Status: REG RCR Insurance: MEDICARE PART A B [facility] Patient's Visit Information Visit Information [...] to be FAXED BACK to us at [phone] for Medicare purposes. For Medicare only, by signing this I certify the plan of care. Please let me know if there are questions or concerns regarding this plan of care. Physician Signature: Date: 01/23/25 0815 CC: Dr. Alberto Garrett MD ELR Signed Normal [facility] Inital Evaluation (1) - PT [facility] Physical Therapy [facility] [address] [place] [address] / REHABILITATION SERVICES INITIAL EVALUATION MR#: [id number] Acct: [id number] Name: DARLYN ESCOBAR Rep #: [id number] : 1960 64 From: Allie Altman DPT Referring Dr.: Dr. Alberto Garrett MD Status: REG RCR Insurance: MEDICARE PART A B [facility] Patient's Visit Information Visit Information [...] to be FAXED BACK to us at [phone] for Medicare purposes. For Medicare only, by signing this I certify the plan of care. Please let me know if there are questions or concerns regarding this plan of care. Physician Signature: Date: 01/23/2515 CC: Dr. Alberto Garrett MD ELR Signed Normal [facility] Anion gap in Serum or Plasma Ordered By: Alberto Garrett on 01-19-2025 Anion gap [Moles/Vol] 13 mmol/L 5-15 [facility] BUN/creatinine ratioOrdered By: Alberto Garrett on 01-19-2025 Urea nitrogen/Creatinine [Mass ratio] 17.3 mg/mg - [facility] Basic Metabolic Profile (BMP )on 01-19-2025 BUN/CRE 17.3 RATIO Normal - [facility] Comment on above: Performed By: #### L 500.2500 #### [facility] [address] [place], [address] Calcium [Mass/Vol] 10.0 mg/dL Normal 7.6-11.0 [facility] Comment on above: Performed By: #### L 500.2500 #### [facility] [address] [place], [address] Chloride [Moles/Vol] 105 mmol/L Normal 98-108 [facility] Comment on above: Performed By: #### L 500.2500 #### [facility] [address] [place], [address] CO2 [Moles/Vol] 22.3 mmol/L Normal 21.0-32.0 [facility] Comment on above: Performed By: #### L 500.2500 #### [facility] [address] [place], [address] Creatinine [Mass/Vol] 0.95 mg/dL Normal 0.70-1.20 [facility] Comment on above: Performed By: #### L 500.2500 #### [facility] [address] [place], [address] GAP 13 Normal 5-15 [facility] Comment on above: Performed By: #### L 500.2500 #### [facility] [address] [place], [address] GFR/1.73 sq M.predicted among non-blacks MDRD (S/P/Bld) [Vol rate/Area] 66 mL/min/{1.73_m2} Normal >60 [facility] Comment on above: Result Comment: mL/m in/1.73m2 CKD-EPI Creatinine Equation (2020) Performed By: #### L 500.2500 #### [facility] [address] [place], [address] Glucose [Mass/Vol] 91 mg/dL Normal 70-99 [facility] Comment on above: Performed By: #### L 500.2500 #### [facility] [address] [place], [address] Potassium [Moles/Vol] 4.4 mmol/L Normal 3.3-5.1 [facility] Comment on above: Performed By: #### L 500.2500 #### [facility] [address] [place], [address] Sodium [Moles/Vol] 140 mmol/L Normal 133-145 [facility] Comment on above: Performed By: #### L 500.2500 #### [facility] [address] [place], [address] Urea nitrogen [Mass/Vol] 16 mg/dL Normal 4-19 [facility] Comment on above: Performed By: #### L 500.2500 #### [facility] [address] [place], [address] Carbon dioxide, total [Moles /volume] in Central venous bloodOrdered By: Alberto Garrett on 01-19-2025 CO2 [Moles/Vol] 22.3 mmol/L 21.0-32.0 [facility] Chloride assayOrdered By: León Garrett on 01-19-2025 Chloride [Moles/Vol] 105 mmol/L 98-108 [facility] Glomerular filtration rate ( GFR) estimation/1.73 sq m using serum, plasma, or whole bOrdered By: Alberto Garrett on 01-19-2025 GFR/1.73 sq M.predicted among non-blacks MDRD (S/P/Bld) [Vol rate/Area] 66 mL/min/{1.73_m2} >60 [facility] Comment on above: mL/min/1.73m2 CKD-EP I Creatinine Equation (2020) Internal Medicine Office Vis mindi 01-19-2025 Internal Medicine Office Visit [facility] [address] [place] [address] [place] [address] OFFICE VISIT Date of Service: 01/19/25 MR#: [id number] Acct: [id number] Name: LUZDARLYN S Rep #: [id number] : 1960 Provider: Dr. Alberto morgan MD Age/Sex: 64/F Location: [facility] Status: Signed Intake Vital Signs 07/19/24 09:16 [...] Chief Complaint: right knee injury and pain Home Visits Nurse Required: No Accompanied by: Self Is patient [...] hurt right knee while playing pickle ball [facility] Medical History (Updated 01/19/25 @ 08:30 by [...] home: Yes additional social history: - [facility] HPI Chief Complaint: right knee injury and [...] No darien (more content not included)... Normal [facility] Knee 3 Viewson 01-19-2025 Knee 3 Views [facility] [address] [place], [place] [address] Knee 3 Views MR#: [id number] Acct: [id number] Name: DARLYN ESCOBAR Rep #: [id number] : 1960 F 64 From: Hao Reyes MD PCP: Dr. Alberto Garrett MD Status: REG CLI Study: Knee 3 Views Date of Exam: 01/19/25 Exam# [id number] Ordering Dr: Alberto Garrett MD EXAM: XR Right Knee, 3 Views CLINICAL INDICATION: BILATERAL KNEE PAIN TECHNIQUE: Three views of the right knee. COMPARISON: No relevant prior studies available. FINDINGS: BONES/JOINTS: Mild tricompartmental degenerative changes of the knee joint. No acute fracture. No dislocation. SOFT TISSUES: Soft tissue swelling. RAD/Knee 3 Views IMPRESSION: Degenerative changes as above. Reading Location: [facility] CC: Dr. Alberto Garrett MD Drinking Water Technician: Signed Normal [facility] Knee 3 Views [facility] [address] [place] [address] Knee 3 Views MR#: [id number] Acct: [id number] Name: DARLYN ESCOBAR Rep #: [id number] : 1960 F 64 From: Hao Reyes MD PCP: Dr. Alberto Garrett MD Status: REG CLI Study: Knee 3 Views Date of Exam: 01/19/25 Exam# [id number] Ordering Dr: Alberto Garrett MD EXAM: XR Left Knee, 3 Views CLINICAL INDICATION: BILATERAL KNEE PAIN TECHNIQUE: Three views of the left knee. COMPARISON: No relevant prior studies available. FINDINGS: BONES/JOINTS: Unremarkable. No acute fracture. No dislocation. SOFT TISSUES: Unremarkable. RAD/Knee 3 Views IMPRESSION: No acute fracture. Reading Location: [facility] CC: Dr. Alberto Garrett MD Drinking Water Technician: Signed [facility] Potassium measurement (mass/ volume)Ordered By: Alberto Garrett on 01-19-2025 Potassium (Unsp spec) [Mass/Vol] 4.4 mmol/L 3.3-5.1 [facility] Serum creatinine measurement (mass/volume)Ordered By: Alberto Oleghe on 01-19-2025 Creatinine [Mass/Vol] 0.95 mg/dL 0.70-1.20 [facility] Serum glucose measurement (m ass/volume)Ordered By: Baldomeroargelia Castanovitoalcon on 01-19-2025 Glucose [Mass/Vol] 91 mg/dL 70-99 [facility] Serum or plasma calcium estephania urement (mass/volume)Ordered By: Alberto Eyadvitoalcon on 01-19-2025 Calcium [Mass/Vol] 10.0 mg/dL 7.6-11.0 [facility] Serum or plasma urea nitroge n measurement (mass/volume)Ordered By: Alberto Blancalcon on 01-19-2025 Urea nitrogen [Mass/Vol] 16 mg/dL 4-19 [facility] Sodium levelOrdered By: [facility] kanwal Eyadvitoalcon on 01-19-2025 Sodium [Moles/Vol] 140 mmol/L 133-145 [facility] Internal Medicine Office Vis itoesteban 12-27-2024 Internal Medicine Office Visit [facility] [place] [address] [place] [address] OFFICE VISIT Date of Service: 12/27/24 MR#: [id number] Acct: [id number] Name: DARLYN ESCOBAR Rep #: [id number] : 1960 Provider: ZEKE Hercules Age/Sex: 64/F Location[facility] Status: Signed Intake Vital Signs 07/19/24 09:16 12/27/24 08:14 Height 5 ft 6 in 5 ft 6 in Weight: 164 lb BMI 26.4 BP 126/82 H Blood Pressure Location Lt brachial Position Sitting Respiration 16 Pulse 67 Pulse Source Monitor Temp 97.5 F L Temp Source Temporal Intake Visit Reasons: Acute-ache behind knees Chief Complaint: 6 M FU Home Visits Nurse Required: No Is patient in pain?: No [...] will be driving [address] [facility] Medical History Hypercalcemia Health care maintenance Hyperlipidemia [...] of l (more content not included)... Normal [facility] Breast imaging reportOrdered By: Pool Crandall on 10-19-2024 Study report [facility] [address] [place] [address] SCRN MAMM (CAD)W/BC ALY MR#: [id number] Acct: [id number] Name: DARLYN ESCOBAR Rep #: [id number] : 1960 F 64 From: Ismael Crandall MD PCP: Dr. Alberto Garrett MD Status: R EG CLI Study:SCRN MAMM (CAD)W/BC BILAT Date of Exa m: 10/19/24 Exam# [id number] Ordering Dr: Alcon Garrett MD PROCEDURE: SCRN [...] of the results by letter. Reading Location: [id number] CC: Dr. Alberto Garrett MD ~ Drinking Water Technician: Signed [facility] SCRN MAMM (CAD)W/BC BILATo n 10-19-2024 SCRN MAMM (CAD)W/BC BILAT [facility] [address] [place], [place] [address] SCRN MAMM (CAD)W/BC BILAT MR#: [id number] Acct: [id number] Name: DARLYN ESCOBAR Rep #: [id number] : 1960 64 From: Pool cooper MD PCP: Dr. Alberto Garrett MD Status: REG CLI Study: SCRN MAMM (CAD)W/BC BILAT Date of Exam: 02/07 Exam# [id number] Ordering Dr: Alberto Garrett MD PROCEDURE: SCRN [...] of the results by letter. Reading Location: [facility] CC: Dr. Alberto Garrett MD Drinking Water Technician: Signed Normal [facility] Absolute neutrophil countOrd ered By: Alberto Garrett on 07-19-2024 Neutrophils (Bld) [#/Vol] 5.6 10*3/uL 2.0-7.7 [facility] Albumin to globulin ratioOrd ered By: Alberto Garrett on 07-19-2024 Albumin/Globulin [Mass ratio] 0.9 {ratio} 0.9-2.4 [facility] Basophil percentageOrdered B y: Alberto Garrett on 07-19-2024 Basophils/100 WBC (Bld) 0.6 % 0-1 [facility] Bilirubin, totalOrdered By: Alberto Garrett on 07-19-2024 Bilirubin [Mass/Vol] 0.50 mg/dL 0.20-1.00 [facility] Comment on above: For patients on eltr ombopag therapy, use of Dimension [place] TBIL is not recommended. Blood urea nitrogen (BUN)/cr eatinine ratioOrdered By: Alberto Garrett on 07-19-2024 Urea nitrogen/Creatinine [Mass ratio] 20.7 mg/mg High 10-20 [facility] CBC W/Diff, Automatedon 12 Absolute Lymph 1.60 X10 3/uL Normal 0.83-4.51 [facility] Comment on above: Performed By: #### L 500.4050, L500.4100, L100.0100 #### [facility] [address] [place], [address] Absolute Neut 5.6 X10 3/uL Normal 2.0-7.7 [facility] Comment on above: Performed By: #### L 500.4050, L500.4100, L100.0100 #### [facility] [address] [place], [address] Basophils/100 WBC (Bld) 0.6 % Normal 0-1 [facility] Comment on above: Performed By: #### L 500.4050, L500.4100, L100.0100 #### [facility] [address] [place], [address] Eosinophils/100 WBC (Bld) 1.3 % Normal 0-5 [facility] Comment on above: Performed By: #### L 500.4050, L500.4100, L100.0100 #### [facility] [address] [place], [address] Erythrocyte distribution width (RBC) [Ratio] 12.7 % Normal 11.6-14.6 [facility] Comment on above: Performed By: #### L 500.4050, L500.4100, L100.0100 #### [facility] [address] [place], [address] Hematocrit (Bld) [Volume fraction] 37.9 % Normal 37-47 [facility] Comment on above: Performed By: #### L 500.4050, L500.4100, L100.0100 #### [facility] [address] [place], [address] Hemoglobin (Bld) [Mass/Vol] 12.3 g/dL Normal 12.0-15.0 [facility] Comment on above: Performed By: #### L 500.4050, L500.4100, L100.0100 #### [facility] [address] [place], [address] IG% 0.400 Normal 0.0-0.9 [facility] Comment on above: Result Comment: IG% - Immature Granulocytes (promyelocytes, myelocytes and metamyelocytes) > 1% indicates that a LEFT SHIFT is Present. Performed By: #### L 500.4050, L500.4100, L100.0100 #### [facility] [address] [place], [address] Lymphocytes/100 WBC (Bld) 20.2 % Normal 19-41 [facility] Comment on above: Performed By: #### L 500.4050, L500.4100, L100.0100 #### [facility] [address] [place], [address] MCH (RBC) [Entitic mass] 29.5 pg Normal 27.0-32.0 [facility] Comment on above: Performed By: #### L 500.4050, L500.4100, L100.0100 #### [facility] [address] [place], [address] MCHC (RBC) [Mass/Vol] 32.5 g/dL Normal 32-36 [facility] Comment on above: Performed By: #### L 500.4050, L500.4100, L100.0100 #### [facility] [address] [place], [address] MCV (RBC) [Entitic vol] 90.9 fL Normal 81-99 [facility] Comment on above: Performed By: #### L 500.4050, L500.4100, L100.0100 #### [facility] [address] [place], [address] Monocytes/100 WBC (Bld) 6.7 % Normal 0-10 [facility] Comment on above: Performed By: #### L 500.4050, L500.4100, L100.0100 #### [facility] [address] [place], [address] Neutrophils/100 WBC (Bld) 70.8 % High 47-70 [facility] Comment on above: Performed By: #### L 500.4050, L500.4100, L100.0100 #### [facility] [address] [place], [address] Nucleated RBC (Bld) [#/Vol] 0 10*3/uL Normal 0-5 [facility] Comment on above: Performed By: #### L 500.4050, L500.4100, L100.0100 #### [facility] [address] [place], [address] Platelet mean volume (Bld) [Entitic vol] 10.4 fL Normal 6.2-12.0 [facility] Comment on above: Performed By: #### L 500.4050, L500.4100, L100.0100 #### [facility] [address] [place], [address] Platelets (Bld) [#/Vol] 345 10*3/uL Normal 150-450 [facility] Comment on above: Performed By: #### L 500.4050, L500.4100, L100.0100 #### [facility] [address] [place], [address] RBC (Bld) [#/Vol] 4.17 10*6/uL Low 4.2-5.4 [facility] Comment on above: Performed By: #### L 500.4050, L500.4100, L100.0100 #### [facility] [address] [place], [address] RDW SD 41.9 fl Normal 35.1-43.9 [facility] Comment on above: Performed By: #### L 500.4050, L500.4100, L100.0100 #### [facility] [address] [place], [address] WBC (Bld) [#/Vol] 7.9 10*3/uL Normal 4.4-11.0 [facility] Comment on above: Performed By: #### L 500.4050, L500.4100, L100.0100 #### [facility] [address] [place], [address] Carbon dioxide measurementOr dered By: Alberto Garrett on 07-19-2024 CO2 [Moles/Vol] 24.0 mmol/L 21.0-32.0 [facility] Chloride measurementOrdered By: Alberto Garrett on 07-19-2024 Chloride [Moles/Vol] 109 mmol/L High 98-107 [facility] Comprehensive Metabolic Prof ilon 07-19-2024 Albumin [Mass/Vol] 3.6 g/dL Normal 3.2-5.0 [facility] Comment on above: Performed By: #### L 500.4050, L500.4100, L100.0100 #### [facility] [address] [place], [address] Albumin/Globulin [Mass ratio] 0.9 {ratio} Normal 0.9-2.4 [facility] Comment on above: Performed By: #### L 500.4050, L500.4100, L100.0100 #### [facility] [address] [place], [address] ALK P 69 U/L Normal 45-117 [facility] Comment on above: Performed By: #### L 500.4050, L500.4100, L100.0100 #### [facility] [address] [place], [address] ALT [Catalytic activity/Vol] 25 U/L Normal 13-56 [facility] Comment on above: Performed By: #### L 500.4050, L500.4100, L100.0100 #### [facility] [address] [place], [address] AST [Catalytic activity/Vol] 19 U/L Normal 15-37 [facility] Comment on above: Performed By: #### L 500.4050, L500.4100, L100.0100 #### [facility] [address] [place], [address] Bilirubin [Mass/Vol] 0.50 mg/dL Normal 0.20-1.00 [facility] Comment on above: Result Comment: For patients on eltrombopag therapy, use of Dimension [place] TBIL is not recommended. Performed By: #### L 500.4050, L500.4100, L100.0100 #### [facility] [address] [place], [address] BUN/CRE 20.7 RATIO High 10-20 [facility] Comment on above: Performed By: #### L 500.4050, L500.4100, L100.0100 #### [facility] [address] [place], [address] CA,Total 9.5 mg/dL Normal 8.5-10.1 [facility] Comment on above: Performed By: #### L 500.4050, L500.4100, L100.0100 #### [facility] [address] [place], [address] Chloride [Moles/Vol] 109 mmol/L High 98-107 [facility] Comment on above: Performed By: #### L 500.4050, L500.4100, L100.0100 #### [facility] [address] [place], [address] CO2 [Moles/Vol] 24.0 mmol/L Normal 21.0-32.0 [facility] Comment on above: Performed By: #### L 500.4050, L500.4100, L100.0100 #### [facility] [address] [place], [address] Creatinine [Mass/Vol] 0.87 mg/dL Normal 0.55-1.02 [facility] Comment on above: Result Comment: The validity of the calculated GFR GFRAA in patients over 70 years has not been determined. Clinical correlation is essential. Performed By: #### L 500.4050, L500.4100, L100.0100 #### [facility] [address] [place], [address] EST GFR - AA 84 mL/min Normal >60 [facility] Comment on above: Result Comment: Afri can Italian GFR Calc Performed By: #### L 500.4050, L500.4100, L100.0100 #### [facility] [address] [place], [address] GAP 8 Normal 5-15 [facility] Comment on above: Performed By: #### L 500.4050, L500.4100, L100.0100 #### [facility] [address] [place], [address] GFR/1.73 sq M.predicted among non-blacks MDRD (S/P/Bld) [Vol rate/Area] 69 mL/min/{1.73_m2} Normal >60 [facility] Comment on above: Result Comment: Non- GFR Calc Performed By: #### L 500.4050, L500.4100, L100.0100 #### [facility] [address] [place], [address] Globulin (S) [Mass/Vol] 3.9 g/dL Normal 2.2-4.2 [facility] Comment on above: Performed By: #### L 500.4050, L500.4100, L100.0100 #### [facility] [address] [place] [place], [address] Glucose [Mass/Vol] 96 mg/dL Normal 74-106 [facility] Comment on above: Performed By: #### L 500.4050, L500.4100, L100.0100 #### [facility] [address] [place], [address] Potassium [Moles/Vol] 4.0 mmol/L Normal 3.5-5.1 [facility] Comment on above: Performed By: #### L 500.4050, L500.4100, L100.0100 #### [facility] [address] [place], [address] Sodium [Moles/Vol] 141 mmol/L Normal 136-145 [facility] Comment on above: Performed By: #### L 500.4050, L500.4100, L100.0100 #### [facility] [address] [place], [address] T PROT 7.5 g/dL Normal 6.4-8.2 [facility] Comment on above: Performed By: #### L 500.4050, L500.4100, L100.0100 #### [facility] [address] [place], [address] Urea nitrogen [Mass/Vol] 18 mg/dL Normal 7-18 [facility] Comment on above: Performed By: #### L 500.4050, L500.4100, L100.0100 #### [facility] [address] [place], [address] Eosinophil percentageOrdered By: Alberto Garrett on 07-19-2024 Eosinophils/100 WBC (Bld) 1.3 % 0-5 [facility] Erythrocyte distribution wid th ratioOrdered By: Alberto Garrett on 07-19-2024 Erythrocyte distribution width (RBC) [Ratio] 12.7 % 11.6-14.6 [facility] Erythrocyte distribution wid th standard deviationOrdered By: Alberto Garrett on 07-19-2024 Erythrocyte distribution width (RBC) [Entitic vol] 41.9 fL 35.1-43.9 [facility] Estimated glomerular filtrat ion rate (GFR) AmericanOrdered By: Alberto Garrett on 07-19-2024 Estimated GFR (MDRD) Amer 84 mL/min >60 [facility] Comment on above: GFR Calc Glomerular filtration rate ( GFR) estimationOrdered By: Alberto Garrett on 07-19-2024 Estimated GFR (MDRD) Non-Af Amer 69 mL/min >60 [facility] Comment on above: Non- GFR Calc Glucose measurementOrdered B y: Alberto Garrett on 07-19-2024 Glucose [Mass/Vol] 96 mg/dL 74-106 [facility] Hematocrit Auto (Bld) [Volum e fraction]Ordered By: Alberto Garrett on 07-19-2024 Hematocrit (Bld) [Volume fraction] 37.9 % 37-47 [facility] Hemoglobin measurementOrdere d By: Alberto Garrett on 07-19-2024 Hemoglobin (Bld) [Mass/Vol] 12.3 g/dL 12.0-15.0 [facility] High density lipoprotein (HD L) measurementOrdered By: Alberto Garrett on 07-19-2024 Cholesterol in HDL [Mass/Vol] 93 mg/dL >40 [facility] Comment on above: The drugs N-Acetylcy steine and Metamizole may falsely depress this assay. Reference Range HDL <40 mg/dL Low HDL Cholesterol HDL >or= 60 mg/dL High HDL Cholesterol Immature granulocytes/100 WB C Auto (Bld)Ordered By: Alberto Garrett on 07-19-2024 Immature granulocytes/100 WBC (Bld) 0.400 % 0.0-0.9 [facility] Comment on above: IG% - Immature Granu locytes (promyelocytes, myelocytes and metamyelocytes) > 1% indicates that a LEFT SHIFT is Present. Internal Medicine Office Vis mindi 07-19-2024 Internal Medicine Office Visit [facility] [address] [place] [address] [place] [address] OFFICE VISIT Date of Service: 07/19/24 MR#: [id number] Acct: [id number] Name: DARLYN ESCOBAR Rep #: [id number] : 1960 Provider: Dr. Alberto morgan MD Age/Sex: 64/F Location[place] [facility] [place] Status: Signed with Addenda ADDENDUM by GRACE Smith on 07/19/24 at 0936 Office Procedure Documentation entered by Ericka Smith MA 07/19/24 09:36: Immunizations Fluad Triv (65y up)(PF) 45 mcg (15 mcg x 3)/0.5 mL IM syringe Performing Provider: Alberto Garrett MD Performing Location: [facility] Administered by: Ericka Smith MA on 07/19/24 09:36 Dose Route Admin Location Dispensed Lot Number Expiration Date [facility] Man ufacturer 45 mcg IM Left Deltoid 0.5 mL [id number] 12/15/24 82798-704-97 [employer] VIS Given Date VIS Provided VIS [...] her previous PCP prescribed this for her. [facility] Medical History Hypercalcemia Health care maintenance Hyperlipidemia [...] home: Yes additional social history: - [facility] Chief Complaint: 6 M FU Details: DARLYN ESCOBAR, is a 64 F who presents to the office today for chronic conditions. No acute concerns at this time. History of hypertension, blood pressure today at 128/80. She monitors her numbers at home and she states that her readings are typically less than 120 systolic. Stays active playing [employer] ball. No chest pain, palpitation or shortness [...] ENT EN (more content not included)... Normal [facility] Laboratory - Chemistry and C hemistry - challengeOrdered By: Alberto Garrett on 07-19-2024 AST [Catalytic activity/Vol] 19 U/L 15-37 [facility] Lipid Profileon 07-19-2024 Cholesterol [Mass/Vol] 169 mg/dL Normal 200 [facility] Comment on above: Result Comment: <200 mg/dL Desirable 200-240 mg/dL Borderline >240 mg/dL High Risk Performed By: #### L 500.4050, L500.4100, L100.0100 #### [facility] [address] [place], [address] Cholesterol in HDL [Mass/Vol] 93 mg/dL Normal [facility] Comment on above: Result Comment: The drugs N-Acetylcysteine and Metamizole may falsely depress this assay. Reference Range HDL <40 mg/dL Low HDL Cholesterol HDL >or= 60 mg/dL High HDL Cholesterol Performed By: #### L 500.4050, L500.4100, L100.0100 #### [facility] [address] [place], [address] Cholesterol in LDL [Mass/Vol] 64 mg/dL Normal 0-130 [facility] Comment on above: Performed By: #### L 500.4050, L500.4100, L100.0100 #### [facility] [address] [place], [address] Cholesterol in VLDL [Mass/Vol] 12 mg/dL Normal 5-40 [facility] Comment on above: Performed By: #### L 500.4050, L500.4100, L100.0100 #### [facility] [address] [place], [address] Triglyceride [Mass/Vol] 62 mg/dL Normal [facility] Comment on above: Result Comment: The drugs N-Acetylcysteine and Metamizole may falsely depress this assay. Serum Triglycerides Reference Interval Normal <150 mg/dL Borderline high 150 - 199 mg/dL High 200 - 499 mg/dL Very High > or = 500 mg/dL Performed By: #### L 500.4050, L500.4100, L100.0100 #### [facility] [address] [place], [address] Low density lipoprotein (LDL ) cholesterol measurementOrdered By: Alberto Garrett on 07-19-2024 Cholesterol in LDL [Mass/Vol] 64 mg/dL 0-130 [facility] Lymphocytes Auto (Unsp spec) [#/Vol]Ordered By: Alberto Garrett on 07-19-2024 Lymphocytes (Bld) [#/Vol] 1.60 10*3/uL 0.83-4.51 [facility] Lymphocytes/100 WBC Auto (Un sp spec)Ordered By: Alberto Garrett on 07-19-2024 Lymphocytes/100 WBC (Bld) 20.2 % 19-41 [facility] MCV (mean corpuscular volume ) determinationOrdered By: Alberto Garrett on 07-19-2024 MCV (RBC) [Entitic vol] 90.9 fL 81-99 [facility] Mean corpuscular hemoglobin (MCH) determinationOrdered By: Alberto Garrett on 07-19-2024 MCH (RBC) [Entitic mass] 29.5 pg 27.0-32.0 [facility] Mean corpuscular hemoglobin concentration (MCHC) determinationOrdered By: Alberto Garrett on 07-19-2024 MCHC (RBC) [Mass/Vol] 32.5 g/dL 32-36 [facility] Mean platelet volume determi nationOrdered By: Alberto Garrett on 07-19-2024 Platelet mean volume (Bld) [Entitic vol] 10.4 fL 6.2-12.0 [facility] Monocyte percentageOrdered B y: Alberto Garrett on 07-19-2024 Monocytes/100 WBC (Bld) 6.7 % 0-10 [facility] Neutrophil percentageOrdered By: Alberto Garrett on 07-19-2024 Neutrophils/100 WBC (Bld) 70.8 % High 47-70 [facility] Nucleated red blood cell per centageOrdered By: Alberto Garrett on 07-19-2024 Nucleated RBC/100 WBC (Bld) [Ratio] 0 % 0-5 [facility] Platelet countOrdered By: León Garrett on 07-19-2024 Platelets (Bld) [#/Vol] 345 10*3/uL 150-450 [facility] Potassium measurementOrdered By: Alberto Garrett on 07-19-2024 Potassium [Moles/Vol] 4.0 mmol/L 3.5-5.1 [facility] RBC Auto (Bld) [#/Vol]Ordere d By: Alberto Garrett on 07-19-2024 RBC (Bld) [#/Vol] 4.17 10*6/uL Low 4.2-5.4 [facility] Serum anion gap measurementO rdered By: Alberto Garrett on 07-19-2024 Anion gap [Moles/Vol] 8 mmol/L 5-15 [facility] Serum globulin measurementOr dered By: Alberto Garrett on 07-19-2024 Globulin (S) [Mass/Vol] 3.9 g/dL 2.2-4.2 [facility] Serum or plasma alanine diehl otransferase (ALT) measurementOrdered By: Alberto Garrett on 07-19-2024 ALT [Catalytic activity/Vol] 25 U/L 13-56 [facility] Serum or plasma albumin estephania urement (mass/volume)Ordered By: Alberto Garrett on 07-19-2024 Albumin [Mass/Vol] 3.6 g/dL 3.2-5.0 [facility] Serum or plasma alkaline jessica sphatase measurementOrdered By: Alberto Garrett on 07-19-2024 ALP [Catalytic activity/Vol] 69 U/L 45-117 [facility] Serum or plasma calcium estephania urement (mass/volume)Ordered By: Alberto Garrett on 07-19-2024 Calcium [Mass/Vol] 9.5 mg/dL 8.5-10.1 [facility] Serum or plasma cholesterol measurement (mass/volume)Ordered By: Alberto Garrett on 07-19-2024 Cholesterol [Mass/Vol] 169 mg/dL <200 [facility] Comment on above: <200 mg/dL Desirable 200-240 mg/dL Borderline >240 mg/dL High Risk Serum or plasma creatinine m easurement (mass/volume)Ordered By: Alberto Garrett on 07-19-2024 Creatinine [Mass/Vol] 0.87 mg/dL 0.55-1.02 [facility] Comment on above: The validity of the calculated GFR & GFRAA in patients over 70 years has not been determined. Clinical correlation is essential. Serum or plasma urea nitroge n measurement (mass/volume)Ordered By: Alberto Garrett on 07-19-2024 Urea nitrogen [Mass/Vol] 18 mg/dL 7-18 [facility] Sodium levelOrdered By: Jeanne Garrett on 07-19-2024 Sodium [Moles/Vol] 141 mmol/L 136-145 [facility] Total proteinOrdered By: Luis Armando Garrett on 07-19-2024 Protein [Mass/Vol] 7.5 g/dL 6.4-8.2 [facility] Triglycerides measurementOrd ered By: Alberto Garrett on 07-19-2024 Triglyceride [Mass/Vol] 62 mg/dL <199 [facility] Comment on above: The drugs N-Acetylcy steine and Metamizole may falsely depress this assay.Serum Triglycerides Reference Interval Normal <150 mg/dL Borderline high 150 - 199 mg/dL High 200 - 499 mg/dL Very High > or = 500 mg/dL Very low density lipoprotein (VLDL) cholesterol measurementOrdered By: Alberto Garrett on 07-19-2024 VLDL Cholesterol 12 mg/dL 5-40 [facility] White blood cell (WBC) count Ordered By: Alberto Garrett on 07-19-2024 WBC (Bld) [#/Vol] 7.9 10*3/uL 4.4-11.0 [facility] Internal Medicine Office Vis iton 04-06-2024 Internal Medicine Office Visit [facility] [address] [place], [place] [address] OFFICE VISIT Date of Service: 04/06/24 MR#: [id number] Acct: [id number] Name: DARLYN ESCOBAR Rep #: [id number] : 1960 Provider: ZEKE Hercules Age/Sex: 63/F Location[place] [facility] [place] Status: Signed Intake Vital Signs 01/19/24 09:29 [...] POISON CHELA Chief Complaint: 4 M FU Home Visits Nurse Required: No Is patient in pain?: No [...] on her legs a couple weeks ago. [facility] Medical History Hypercalcemia Health care maintenance Hyperlipidemia [...] home: Yes additional social history: - [facility] HPI Chief Complaint: 4 M FU [...] and rash; (more content not included)... Normal [facility] Absolute lymphocyte countOrd ered By: Alberto Garrett on 07-19-2023 Lymphocytes Auto (Unsp spec) [#/Vol] 1.44 10*3/uL 0.83-4.51 [facility] Basophil percentageOrdered B y: Leónmandykanwal Tami on 07-19-2023 Basophils/100 WBC (Bld) 0.6 % 0-1 [facility] Bilirubin [Mass/Vol] 0.70 mg/dL 0.20-1.00 [facility] Comment on above: For patients on eltr ombopag therapy, use of Dimension [place] TBIL is not recommended. Chloride [Moles/Vol] 110 mmol/L 98-107 [facility] Cholesterol [Mass/Vol] 177 mg/dL <200 [facility] Comment on above: <200 mg/dL Desirable 200-240 mg/dL Borderline >240 mg/dL High Risk Eosinophils/100 WBC (Bld) 1.1 % 0-5 [facility] Glucose [Mass/Vol] 92 mg/dL 74-106 [facility] Neutrophils (Bld) [#/Vol] 4.4 10*3/uL 2.0-7.7 [facility] Neutrophils/100 WBC (Bld) 69.4 % 47-70 [facility] Potassium [Moles/Vol] 4.0 mmol/L 3.5-5.1 [facility] Protein [Mass/Vol] 7.4 g/dL 6.4-8.2 [facility] Sodium [Moles/Vol] 140 mmol/L 136-145 [facility] Triglyceride [Mass/Vol] 99 mg/dL <199 [facility] Comment on above: The drugs N-Acetylcy steine and Metamizole may falsely depress this assay.Serum Triglycerides Reference Interval Normal <150 mg/dL Borderline high 150 - 199 mg/dL High 200 - 499 mg/dL Very High > or = 500 mg/dL WBC (Bld) [#/Vol] 6.3 10*3/uL 4.4-11.0 [facility] Blood erythrocytes count (nu mber/volume)Ordered By: Alberto Garrett on 07-19-2023 RBC (Bld) [#/Vol] 4.11 10*6/uL 4.2-5.4 [facility] Blood hemoglobin measurement (mass/volume)Ordered By: Alberto Garrett on 07-19-2023 Hemoglobin (Bld) [Mass/Vol] 12.1 g/dL 12.0-15.0 [facility] Blood lymphocytes/100 leukoc ytesOrdered By: Alberto Garrett on 07-19-2023 Lymphocytes/100 WBC (Bld) 22.9 % 19-41 [facility] Blood monocytes/100 leukocyt esOrdered By: Alberto Garrett on 07-19-2023 Monocytes/100 WBC (Bld) 5.7 % 0-10 [facility] Blood platelet mean volumeOr dered By: Alberto Garrett on 07-19-2023 Platelet mean volume (Bld) [Entitic vol] 10.4 fL 6.2-12.0 [facility] Determination of erythrocyte mean corpuscular volume (MCV)Ordered By: Alberto Garrett on 07-19-2023 MCV (RBC) [Entitic vol] 92.2 fL 81-99 [facility] Hematocrit Auto (Bld) [Volum e fraction]Ordered By: Alberto Garrett on 07-19-2023 Hematocrit (Bld) [Volume fraction] 37.9 % 37-47 [facility] Laboratory - Chemistry and C hemistry - challengeOrdered By: ever Garrett on 07-19-2023 ALP [Catalytic activity/Vol] 72 U/L 45-117 [facility] ALT [Catalytic activity/Vol] 37 U/L 13-56 [facility] CO2 [Moles/Vol] 25.0 mmol/L 21.0-32.0 [facility] Globulin (S) [Mass/Vol] 3.8 g/dL 2.2-4.2 [facility] Urea nitrogen/Creatinine [Mass ratio] 17.8 mg/mg 10-20 [facility] Laboratory - Hematology and Cell countsOrdered By: mandyrio osoargelia Castanoalcon on 07-19-2023 Erythrocyte distribution width (RBC) [Entitic vol] 42.6 fL 35.1-43.9 [facility] Erythrocyte distribution width (RBC) [Ratio] 12.5 % 11.6-14.6 [facility] Immature granulocytes/100 WBC (Bld) 0.300 % 0.0-0.9 [facility] Comment on above: IG% - Immature Granu locytes (promyelocytes, myelocytes and metamyelocytes) > 1% indicates that a LEFT SHIFT is Present. MCH (RBC) [Entitic mass] 29.4 pg 27.0-32.0 [facility] Nucleated RBC/100 WBC (Bld) [Ratio] 0 % 0-5 [facility] MCHC Auto (RBC) [Mass/Vol]Or dered By: Alberto Garrett on 07-19-2023 MCHC (RBC) [Mass/Vol] 31.9 g/dL 32-36 [facility] No Panel InformationOrdered By: ever Garrett on 07-19-2023 Estimated GFR (MDRD) Amer 81 mL/min >60 [facility] Comment on above: GFR Calc Estimated GFR (MDRD) Non-Af Amer 67 mL/min >60 [facility] Comment on above: Non- GFR Calc Platelets bldOrdered By: Luis Armando Garrett on 07-19-2023 Platelets (Bld) [#/Vol] 306 10*3/uL 150-450 [facility] Serum or plasma albumin estephania urement (mass/volume)Ordered By: Alberto Garrett on 07-19-2023 Albumin [Mass/Vol] 3.6 g/dL 3.2-5.0 [facility] Serum or plasma albumin/glob ulin mass ratioOrdered By: Alberto Garrett on 07-19-2023 Albumin/Globulin [Mass ratio] 0.9 {ratio} 0.9-2.4 [facility] Serum or plasma calcium estephania urement (mass/volume)Ordered By: Alberto Garrett on 07-19-2023 Calcium [Mass/Vol] 9.4 mg/dL 8.5-10.1 [facility] Serum or plasma cholesterol in HDL measurement (mass/volume)Ordered By: Alberto Garrett on 07-19-2023 Cholesterol in HDL [Mass/Vol] 84 mg/dL >40 [facility] Comment on above: The drugs N-Acetylcy steine and Metamizole may falsely depress this assay. Reference Range HDL <40 mg/dL Low HDL Cholesterol HDL >or= 60 mg/dL High HDL Cholesterol Serum or plasma cholesterol in VLDL measurement (mass/volume)Ordered By: Alberto Garrett on 07-19-2023 Cholesterol in VLDL [Mass/Vol] 20 mg/dL 5-40 [facility] Serum or plasma creatinine m easurement (mass/volume)Ordered By: Alberto Garrett on 07-19-2023 Creatinine [Mass/Vol] 0.90 mg/dL 0.55-1.02 [facility] Comment on above: The validity of the calculated GFR & GFRAA in patients over 70 years has not been determined. Clinical correlation is essential. Serum or plasma low density lipoprotein (LDL) cholesterol measurement (mass/volume)Ordered By: Alberto Garrett on 07-19-2023 Cholesterol in LDL [Mass/Vol] 73 mg/dL 0-130 [facility] Serum or plasma urea nitroge n measurement (mass/volume)Ordered By: Alberto Garrett on 07-19-2023 Urea nitrogen [Mass/Vol] 16 mg/dL 7-18 [facility] Thin prep Papanicolaou smear with manual screeningOrdered By: Alberto Garrett on 07-19-2023 Thin prep Papanicolaou smear with manual screening 30 U/L 15-37 [facility] Thin prep Papanicolaou smear with manual screening 5 5-15 [facility] Basophil percentageon 2021 Chloride [Moles/Vol] 110 mmol/L 98-107 [facility] Work Phone: Glucose [Mass/Vol] 100 mg/dL 74-106 [facility] Work Phone: Comment on above: Fasting Glucose resu lt from 100 to 125 mg/dL suggests IMPAIRED HOMEOSTASIS per A.D.A. criteria. Potassium [Moles/Vol] 4.3 mmol/L 3.5-5.1 [facility] Work Phone: Sodium [Moles/Vol] 141 mmol/L 136-145 [facility] Work Phone: Laboratory - Chemistry and C hemistry - challengeon 02-26-2022 CO2 [Moles/Vol] 28.0 mmol/L 21.0-32.0 [facility] Work Phone: Urea nitrogen/Creatinine [Mass ratio] 20.1 mg/mg 10-20 [facility] Work Phone: No Panel Informationon 02-26 Estimated GFR (MDRD) Amer 82 mL/min >60 [facility] Work Phone: Comment on above: GFR Calc Estimated GFR (MDRD) Non-Af Amer 67 mL/min >60 [facility] Work Phone: Comment on above: Non- GFR Calc Serum or plasma calcium estephania urement (mass/volume)on 02-26-2022 Calcium [Mass/Vol] 9.3 mg/dL 8.5-10.1 [facility] Work Phone: Serum or plasma creatinine m easurement (mass/volume)on 02-26-2022 Creatinine [Mass/Vol] 0.90 mg/dL 0.55-1.02 [facility] Work Phone: Comment on above: The validity of the calculated GFR & GFRAA in patients over 70 years has not been determined. Clinical correlation is essential. Serum or plasma urea nitroge n measurement (mass/volume)on 02-26-2022 Urea nitrogen [Mass/Vol] 18 mg/dL 03-02 [facility] Work Phone: Thin prep Papanicolaou smear with manual screeningon 02-26-2022 Thin prep Papanicolaou smear with manual screening 3 12-28 [facility] Work Phone: No Panel Informationon 12-25 Pap Smear Test Ordered See comment [facility] Work Phone: Comment on above: IGP, Aptima [...] image guided system. Performed by Sally Ca Lead Investigator (ASCP) This nucleic acid amplification test detects fourteen high-risk HPV types (16,18,31,33,35,39,45,51,52,56,58,59,66,68) without differentiation.HPV Results: HPV Aptima: Negative ___ TESTING PERFORMED AT [facility]. ORIGINAL REPORT ON FILE IN LAB CONTAINS ADDITIONAL TEST SITE INFORMATION. Pathology report final diagnosis Narrative Not Reportable [facility] Work Phone: Absolute lymphocyte counton 09-02-2021 Lymphocytes Auto (Unsp spec) [#/Vol] 1.99 10*3/uL 0.83-4.51 [facility] Work Phone: Basophil percentageon 2021 Basophils/100 WBC (Bld) 0.6 % 0-1 [facility] Work Phone: Bilirubin [Mass/Vol] 0.60 mg/dL 0.20-1.00 [facility] Work Phone: Comment on above: For patients on eltr ombopag therapy, use of Dimension [place] TBIL is not recommended. Chloride [Moles/Vol] 104 mmol/L 98-107 [facility] Work Phone: Cholesterol [Mass/Vol] 175 mg/dL <200 [facility] Work Phone: Comment on above: <200 mg/dL Desirable 200-240 mg/dL Borderline >240 mg/dL High Risk Eosinophils/100 WBC (Bld) 1.8 % 0-5 [facility] Work Phone: Glucose [Mass/Vol] 82 mg/dL 74-106 [facility] Work Phone: Neutrophils (Bld) [#/Vol] 3.8 10*3/uL 2.0-7.7 [facility] Work Phone: Neutrophils/100 WBC (Bld) 59.2 % 47-70 [facility] Work Phone: Potassium [Moles/Vol] 4.5 mmol/L 3.5-5.1 [facility] Work Phone: Protein [Mass/Vol] 7.7 g/dL 6.4-8.2 [facility] Work Phone: [phone] Sodium [Moles/Vol] 139 mmol/L 136-145 [facility] Work Phone: [phone] Triglyceride [Mass/Vol] 72 mg/dL [facility] Work Phone: [phone] Comment on above: The drugs N-Acetylcy steine and Metamizole may falsely depress this assay.Serum Triglycerides Reference Interval Normal <150 mg/dL Borderline high 150 - 199 mg/dL High 200 - 499 mg/dL Very High > or = 500 mg/dL WBC (Bld) [#/Vol] 6.5 10*3/uL 4.4-11.0 [facility] Work Phone: [phone] Blood erythrocytes count (nu mber/volume)on 09-02-2021 RBC (Bld) [#/Vol] 4.27 10*6/uL 4.2-5.4 [facility] Work Phone: [phone] Blood hemoglobin measurement (mass/volume)on 09-02-2021 Hemoglobin (Bld) [Mass/Vol] 12.5 g/dL 12.0-15.0 [facility] Work Phone: Blood lymphocytes/100 leukoc yteson 09-02-2021 Lymphocytes/100 WBC (Bld) 30.6 % 19-41 [facility] Work Phone: [phone] Blood monocytes/100 leukocyt eson 09-02-2021 Monocytes/100 WBC (Bld) 7.5 % 0-10 [facility] Work Phone: [phone] Blood platelet mean volumeon 09-02-2021 Platelet mean volume (Bld) [Entitic vol] 10.7 fL 6.2-12.0 [facility] Work Phone: [phone] Determination of erythrocyte mean corpuscular volume (MCV)on 09-02-2021 MCV (RBC) [Entitic vol] 91.8 fL 81-99 [facility] Work Phone: [phone] Hematocrit Auto (Bld) [Volum e fraction]on 09-02-2021 Hematocrit (Bld) [Volume fraction] 39.2 % 37-47 [facility] Work Phone: [phone] Laboratory - Chemistry and C hemistry - challengeon 09-02-2021 ALP [Catalytic activity/Vol] 81 U/L 45-117 [facility] Work Phone: [phone] ALT [Catalytic activity/Vol] 32 U/L 13-56 [facility] Work Phone: [phone] CO2 [Moles/Vol] 30.0 mmol/L 21.0-32.0 [facility] Work Phone: [phone] Globulin (S) [Mass/Vol] 4.0 g/dL 2.2-4.2 [facility] Work Phone: [phone] Urea nitrogen/Creatinine [Mass ratio] 21.3 mg/mg 10-20 [facility] Work Phone: [phone] Laboratory - Hematology and Cell countson 09-02-2021 Erythrocyte distribution width (RBC) [Entitic vol] 41.1 fL 35.1-43.9 [facility] Work Phone: [phone] Erythrocyte distribution width (RBC) [Ratio] 12.4 % 11.6-14.6 [facility] Work Phone: [phone] Immature granulocytes/100 WBC (Bld) 0.300 % 0.0-0.9 [facility] Work Phone: [phone] Comment on above: IG% - Immature Granu locytes (promyelocytes, myelocytes and metamyelocytes) > 1% indicates that a LEFT SHIFT is Present. MCH (RBC) [Entitic mass] 29.3 pg 27.0-32.0 [facility] Work Phone: [phone] Nucleated RBC/100 WBC (Bld) [Ratio] 0 % 0-5 [facility] Work Phone: [phone] MCHC Auto (RBC) [Mass/Vol]on 09-02-2021 MCHC (RBC) [Mass/Vol] 31.9 g/dL 32-36 [facility] Work Phone: [phone] No Panel Informationon 09-02 Estimated GFR (MDRD) Amer 77 mL/min >60 [facility] Work Phone: Comment on above: GFR Calc Estimated GFR (MDRD) Non-Af Amer 64 mL/min >60 [facility] Work Phone: Comment on above: Non- GFR Calc Platelets bldon 09-02-2021 Platelets (Bld) [#/Vol] 325 10*3/uL 150-450 [facility] Work Phone: Serum or plasma albumin estephania urement (mass/volume)on 09-02-2021 Albumin [Mass/Vol] 3.7 g/dL 3.2-5.0 [facility] Work Phone: [phone] Serum or plasma albumin/glob ulin mass ratioon 09-02-2021 Albumin/Globulin [Mass ratio] 0.9 {ratio} 0.9-2.4 [facility] Work Phone: Serum or plasma calcium estephania urement (mass/volume)on 09-02-2021 Calcium [Mass/Vol] 9.3 mg/dL 8.5-10.1 [facility] Work Phone: Serum or plasma cholesterol in HDL measurement (mass/volume)on 09-02-2021 Cholesterol in HDL [Mass/Vol] 77 mg/dL [facility] Work Phone: Comment on above: The drugs N-Acetylcy steine and Metamizole may falsely depress this assay. Reference Range HDL <40 mg/dL Low HDL Cholesterol HDL >or= 60 mg/dL High HDL Cholesterol Serum or plasma cholesterol in VLDL measurement (mass/volume)on 09-02-2021 Cholesterol in VLDL [Mass/Vol] 14 mg/dL 5-40 [facility] Work Phone: [phone] Serum or plasma creatinine m easurement (mass/volume)on 09-02-2021 Creatinine [Mass/Vol] 0.94 mg/dL 0.55-1.02 [facility] Work Phone: Comment on above: The validity of the calculated GFR & GFRAA in patients over 70 years has not been determined. Clinical correlation is essential. Serum or plasma low density lipoprotein (LDL) cholesterol measurement (mass/volume)on 09-02-2021 Cholesterol in LDL [Mass/Vol] 84 mg/dL 0-130 [facility] Work Phone: Serum or plasma urea nitroge n measurement (mass/volume)on 09-02-2021 Urea nitrogen [Mass/Vol] 20 mg/dL 7-18 [facility] Work Phone: Thin prep Papanicolaou smear with manual screeningon 09-02-2021 Thin prep Papanicolaou smear with manual screening 21 U/L 15-37 [facility] Work Phone: Thin prep Papanicolaou smear with manual screening 5 5-15 [facility] Work Phone: Vital Signs Date Time Vital Sign Value Performing Clinician Gregory gonzalez 01-19-2025 08:05-0400 Body height 167.[address] Alberto Garrett MD Work Phone: [facility] 01-19-2025 08:05-0400 Body mass index (BMI) [Ratio] 26.3 kg/m2 Dr. Alberto Garrett MD Work Phone: [facility] 01-19-2025 08:05-0400 Body temperature 97.1 [degF] Dr. Alberto Garrett MD Work Phone: [facility] 01-19-2025 08:05-0400 Body weight 73.[address] Alberto Garrett MD Work Phone: [facility] 01-19-2025 08:05-0400 Diastolic blood pressure 80 mm[Hg] Dr. Alberto Garrett MD Work Phone: [facility] 01-19-2025 08:05-0400 Heart rate 92 /min Dr. Alberto Garrett MD Work Phone: [facility] 01-19-2025 08:05-0400 Respiratory rate 16 /min Dr. Alberto Garrett MD Work Phone: [facility] 01-19-2025 08:05-0400 SaO2% (BldA) [Mass fraction] 96 % Dr. Alberto Garrett MD Work Phone: [facility] 01-19-2025 08:05-0400 Systolic blood pressure 132 mm[Hg] Dr. Alberto Garrett MD Work Phone: [facility] 12-27-2024 08:14-0400 Body height 167.[address] Alberto Garrett MD Work Phone: [facility] 12-27-2024 08:14-0400 Body mass index (BMI) [Ratio] 26.4 kg/m2 Dr. Alberto Garrett MD Work Phone: [facility] 12-27-2024 08:14-0400 Body temperature 97.5 [degF] Dr. Alberto Garrett MD Work Phone: [facility] 12-27-2024 08:14-0400 Body weight 74.[address] Alberto Garrett MD Work Phone: [facility] 12-27-2024 08:14-0400 Diastolic blood pressure 82 mm[Hg] Dr. Alberto Garrett MD Work Phone: [facility] 12-27-2024 08:14-0400 Heart rate 67 /min Dr. Alberto Garrett MD Work Phone: [facility] 12-27-2024 08:14-0400 Respiratory rate 16 /min Dr. Alberto Garrett MD Work Phone: [facility] 12-27-2024 08:14-0400 Systolic blood pressure 126 mm[Hg] Dr. Alberto Garrett MD Work Phone: [facility] 07-19-2024 09:16-0500 Body height 167.[address] Alberto Garrett MD Work Phone: [facility] 07-19-2024 09:16-0500 Body mass index (BMI) [Ratio] 26.4 kg/m2 Dr. Alberto Garrett MD Work Phone: [facility] 07-19-2024 09:16-0500 Body temperature 98.4 [degF] Dr. Alberto Garrett MD Work Phone: [facility] 07-19-2024 09:16-0500 Body weight 74.[address] Alberto Garrett MD Work Phone: [facility] 07-19-2024 09:16-0500 Diastolic blood pressure 80 mm[Hg] Dr. Alberto Garrett MD Work Phone: [facility] 07-19-2024 09:16-0500 Heart rate 90 /min Dr. Alberto Garrett MD Work Phone: [facility] 07-19-2024 09:16-0500 Respiratory rate 17 /min Dr. Alberto Garrett MD Work Phone: [facility] 07-19-2024 09:16-0500 SaO2% (BldA) [Mass fraction] 98 % Dr. Alberto Garrett MD Work Phone: [facility] 07-19-2024 09:16-0500 Systolic blood pressure 128 mm[Hg] Dr. Alberto Garrett MD Work Phone: [facility] 07-19-2023 10:02-0500 Body height 167.[address] Alberto Garrett Work Phone: [facility] 07-19-2023 10:02-0500 Body mass index (BMI) [Ratio] 26.2 kg/m2 Dr. Alberto Garrett Work Phone: [facility] 07-19-2023 10:02-0500 Body temperature 97.5 [degF] Dr. Alberto Garrett Work Phone: [facility] 07-19-2023 10:02-0500 Body weight 73.[address] Alberto Garrett Work Phone: [facility] 07-19-2023 10:02-0500 Diastolic blood pressure 80 mm[Hg] Dr. Alberto Garrett Work Phone: [facility] 07-19-2023 10:02-0500 Heart rate 74 /min Dr. Alberto Garrett Work Phone: [facility] 07-19-2023 10:02-0500 Respiratory rate 16 /min Dr. Alberto Garrett Work Phone: [facility] 07-19-2023 10:02-0500 SaO2% (BldA) [Mass fraction] 97 % Dr. Alberto Garrett Work Phone: [facility] 07-19-2023 10:02-0500 Systolic blood pressure 136 mm[Hg] Dr. Alberto Garrett Work Phone: [facility] 02-26-2022 12:55-0400 Body height 167.[address] Alberto Garrett Work Phone: [facility] Work Phone: 02-26-2022 12:55-0400 Body mass index (BMI) [Ratio] 27.4 kg/m2 Dr. Alberto Garrett Work Phone: [facility] Work Phone: 02-26-2022 12:55-0400 Body temperature 97 [degF] Dr. Alberto Garrett Work Phone: [facility] Work Phone: 02-26-2022 12:55-0400 Body weight 77.[address] Alberto Garrett Work Phone: [facility] Work Phone: 02-26-2022 12:55-0400 Diastolic blood pressure 78 mm[Hg] Dr. Alberto Garrett Work Phone: [facility] Work Phone: 02-26-2022 12:55-0400 Heart rate 79 /min Dr. Alberto Garrett Work Phone: [facility] Work Phone: 02-26-2022 12:55-0400 Respiratory rate 16 /min Dr. Alberto Garrett Work Phone: [facility] Work Phone: 02-26-2022 12:55-0400 SaO2% (BldA) [Mass fraction] 97 % Dr. Alberto Garrett Work Phone: [facility] Work Phone: 02-26-2022 12:55-0400 Systolic blood pressure 126 mm[Hg] Dr. Alberto Garrett Work Phone: [facility] Work Phone: 12-25-2021 10:11-0400 Body mass index (BMI) [Ratio] 27.3 kg/m2 Dr. Alberto Garrett Work Phone: [facility] Work Phone: 12-25-2021 10:11-0400 Body weight 76.[address] Alberto Garrett Work Phone: [facility] Work Phone: 12-25-2021 10:11-0400 Diastolic blood pressure 70 mm[Hg] Dr. Alberto Garrett Work Phone: [facility] Work Phone: 12-25-2021 10:11-0400 Systolic blood pressure 124 mm[Hg] Dr. Alberto Garrett Work Phone: [facility] Work Phone: 12-25-2021 10:11-0400 Body height 167.[address] Alberto Garrett Work Phone: [facility] Work Phone: 12-25-2021 10:11-0400 Body mass index (BMI) [Ratio] 27.3 kg/m2 Dr. Alberto Garrett Work Phone: [facility] Work Phone: 12-25-2021 10:11-0400 Body weight 76.[address] Alberto Garrett Work Phone: [facility] Work Phone: 12-25-2021 10:11-0400 Diastolic blood pressure 70 mm[Hg] Dr. Alberto Garrett Work Phone: [facility] Work Phone: 12-25-2021 10:11-0400 Systolic blood pressure 124 mm[Hg] Dr. Alberto Garrett Work Phone: [facility] Work Phone: 11-18-2021 14:36-0400 Body mass index (BMI) [Ratio] 27.4 kg/m2 Dr. Alberto Garrett Work Phone: [facility] Work Phone: 11-18-2021 14:36-0400 Body temperature 98 [degF] Dr. Alberto Garrett Work Phone: [facility] Work Phone: 11-18-2021 14:36-0400 Body weight 77.[address] Alberto Garrett Work Phone: [facility] Work Phone: 11-18-2021 14:36-0400 Diastolic blood pressure 82 mm[Hg] Dr. Alberto Garrett Work Phone: [facility] Work Phone: 11-18-2021 14:36-0400 Heart rate 73 /min Dr. Alberto Garrett Work Phone: [facility] Work Phone: 11-18-2021 14:36-0400 Respiratory rate 14 /min Dr. Alberto Garrett Work Phone: [facility] Work Phone: 11-18-2021 14:36-0400 SaO2% (BldA) [Mass fraction] 97 % Dr. Alberto Garrett Work Phone: [facility] Work Phone: 11-18-2021 14:36-0400 Systolic blood pressure 148 mm[Hg] Dr. Alberto Garrett Work Phone: [facility] Work Phone: 11-18-2021 14:36-0400 Body mass index (BMI) [Ratio] 27.4 kg/m2 Dr. Alberto Garrett Work Phone: [facility] Work Phone: 11-18-2021 14:36-0400 Body temperature 98 [degF] Dr. Alberto Garrett Work Phone: [facility] Work Phone: 11-18-2021 14:36-0400 Body weight 77.[address] Alberto Garrett Work Phone: [facility] Work Phone: 11-18-2021 14:36-0400 Diastolic blood pressure 82 mm[Hg] Dr. Alberto Garrett Work Phone: [facility] Work Phone: 11-18-2021 14:36-0400 Heart rate 73 /min Dr. Alberto Garrett Work Phone: [facility] Work Phone: 11-18-2021 14:36-0400 Respiratory rate 14 /min Dr. Alberto Garrett Work Phone: [facility] Work Phone: 11-18-2021 14:36-0400 SaO2% (BldA) [Mass fraction] 97 % Dr. Alberto Garrett Work Phone: [facility] Work Phone: 11-18-2021 14:36-0400 Systolic blood pressure 148 mm[Hg] Dr. Alberto Garrett Work Phone: [facility] Work Phone: 10-30-2021 10:08-0400 Body temperature 96.9 [degF] Dr. Alberto Garrett Work Phone: [facility] Work Phone: 10-30-2021 10:08-0400 Diastolic blood pressure 76 mm[Hg] Dr. Alberto Garrett Work Phone: [facility] Work Phone: 10-30-2021 10:08-0400 Heart rate 68 /min Dr. Alberto Garrett Work Phone: [facility] Work Phone: 10-30-2021 10:08-0400 Respiratory rate 16 /min Dr. Alberto Garrett Work Phone: [facility] Work Phone: 10-30-2021 10:08-0400 SaO2% (BldA) [Mass fraction] 100 % Dr. Alberto Garrett Work Phone: [facility] Work Phone: 10-30-2021 10:08-0400 Systolic blood pressure 144 mm[Hg] Dr. Alberto Garrett Work Phone: [facility] Work Phone: 10-30-2021 07:25-0400 Body mass index (BMI) [Ratio] 27 kg/m2 Dr. Alberto Garrett Work Phone: [facility] Work Phone: 10-30-2021 07:25-0400 Body weight [address] Alberto Garrett Work Phone: [facility] Work Phone: Encounters Encounter Date Encounter Type Care Provider Facility Start: 02-15-2025 ambulatory Alberto Castanovitoe Facili ty:[facility] Start: 02-13-2025 ambulatory Efever Blance Facili ty:[facility] Start: 02-01-[address] Ifrah Garrett MD -Physical Therapy Work Phone: Start: 01-29-2025 End: 01-29-2025 Patient encounter procedure Yang Cummings DPM -Radiology [facility] Work Phone: Start: 01-29-2025 End: 01-29-[address] Alberto Garrett MD Work Phone: [facility] Work Phone: Start: 01-29-2025 End: 01-29-2025 ambulatory [facility] Start: 01-23-[address] Ifrah Garrett MD -Physical Therapy Work Phone: Start: 01-19-2025 End: 01-19-[address] Alberto Garrett MD -[facility] Work Phone: Start: 01-19-2025 End: 01-19-[address] Alberto Garrett MD Work Phone: [facility] Work Phone: Start: 01-19-2025 End: 01-19-2025 ambulatory [facility] Facility:[facility] Start: 12-27-2024 End: 12-27-2024 Patient encounter procedure Brandan ALANIS -[facility] Work Phone: Start: 12-27-2024 End: 12-27-[address] Alberto Garrett MD Work Phone: [facility] Work Phone: Start: 12-21-2024 Non-patient / Non-visit Dr. Christopher Phillips MD -[facility] Start: 12-21-2024 ambulatory Christopher Phillips Facility:[facility] Start: 12-21-2024 Registered Referred Self Referred [facility] Work Phone: Start: 10-19-2024 End: 10-19-[address] Alberto Garrett MD Work Phone: [facility] Work Phone: Start: 10-19-2024 End: 10-19-[address] Alberto Garrett MD -Outpatient Breast Imaging Work Phone: Start: 10-19-2024 End: 10-19-2024 ambulatory Alberto Garrett Facility:[facility] Start: 07-19-2024 Encounter for genera l adult medical examination [facility] abnormal [facility] Start: 07-19-2024 End: 07-19-[address] Alberto Garrett MD -[facility] Work Phone: Start: 07-19-2024 End: 07-19-[address] Alberto Garrett MD [facility] Start: 07-19-2024 End: 07-19-2024 ambulatory [facility] Facility:[facility] Start: 07-19-2024 End: 07-19-2024 ambulatory [facility] Start: 04-06-2024 End: 04-06-2024 ambulatory Brandan ALANIS Facility:[facility] Start: 08-26-2023 End: 08-26-[address] Alberto Garrett Work Phone: [facility] Work Phone: Start: 08-26-2023 End: 08-26-[address] Alberto Garrett Work Phone: [facility]-Outpatient Bone Densitometry Work Phone: Start: 07-19-[address] Alberto Garrett Work Phone: [facility] Start: 07-19-2023 End: 07-19-[address] Alberto Garrett Work Phone: [facility] Work Phone: Start: 07-19-2023 End: 07-19-2023 Encounter for general adult medical examination without abnormal findings Dr. Alberto Garrett Work Phone: [facility] Start: 07-19-2023 End: 07-19-[address] Alberto Garrett Work Phone: [facility] Internal Medicine Work Phone: Start: 07-16-2022 End: 07-16-2022 ambulatory [facility] Work Phone: Start: 07-16-2022 End: 07-16-2022 Patient encounter procedure [facility]-Outpatient Breast Imaging Start: 02-26-2022 End: 02-26-[address] Alberto Garrett Work Phone: [facility] Internal Medicine Start: 12-25-2021 End: 12-25-[address] Alberto Garrett Work Phone: [facility] Women's Care Start: 11-18-2021 End: 11-18-[address] Alberto Garrett Work Phone: [facility] Internal Medicine Start: 10-30-2021 Non-patient / Non-visit Dr. Alberto Garrett Work Phone: [facility] Start: 10-30-2021 End: 10-30-2021 Admission to same day surgery center Dr. Alberto Garrett Work Phone: [facility]-Endoscopy Start: 09-12-2021 End: 09-12-[address] Alberto Garrett Work Phone: [facility] Gastroenterology Start: 09-02-2021 End: 09-02-[address] Alberto Garrett Work Phone: [facility]-Laboratory, [facility] Procedures Date Procedure Procedure Detail [...] Author Start: 01-19-2025 XR Knee 3 Views [facility] Start: 01-19-2025 XR knee, 3 views Knee 3 Views [facility] Start: 01-19-2025 Basic metabolic 2008 panel with ionized calcium - Serum or Plasma [facility] Start: 10-30-2021 Colonoscopy w/biopsy single/multiple COLONOSCOPY AND BIOPSY [facility] Work Phone: Start: 10-30-2021 Colsc flx w/rmvl of tumor polyp lesion snare tq COLONOSCOPY W/LESION REMOVAL [facility] Work Phone: Anion gap in Serum o r Plasma [facility] BUN/Creatinine ratio [facility] Calcium [Mass/volume ] in Serum or Plasma [facility] Carbon dioxide, tota l [Moles/volume] in Central venous blood [facility] Creatinine [Mass/vol ume] in Serum or Plasma [facility] CT angiography of coronary arteries [facility] DXA Bone [Mass/Area] Bone density [facility] Glucose [Mass/volume ] in Serum or Plasma [facility] Measurement of renal function [facility] MG Breast - bilatera l Screening [facility] Work Phone: MG Breast - bilatera l Screening [facility] Patient referral [facility] Work Phone: Potassium measurement [facility] Serum chloride measurement [facility] Sodium measurement [facility] Urea nitrogen [Mass/volume] in Serum or Plasma [facility] Immunizations Immunization Date Immunization Notes Care Provider Fa [facility] 07-19-2024 Seasonal trivalent influenza vaccine, adjuvanted, preservative free Dr. Alberto Garrett MD Work Phone: [facility] 07-19-2023 influenza, injectabl e, quadrivalent, preservative free Dr. Alberto Garrett Work Phone: [facility] 11-07-2020 Covid (Moderna) Dr. Regina Garrett Work Phone: [facility] 10-10-2020 Covid (Modern) Dr. Regina Garrett Work Phone: [facility] Payers Date Payer Category Payer Self-pay [id number] 2024 Unknown [id number] [facility] [id number] 2023 Medicare [id number] 2015 [id number] Unknown [id number] 2.16.8 [id number] Unknown [id number] 2.16.8 [id number] Unknown [id number] 2.16.8 [id number] Unknown [id number] 2.16.8 [id number] Unknown [id number] 2.16.8 [id number] Unknown [id number] 2.16.8 [id number] Unknown [id number] 2.16.8 [id number] Unknown [id number] 2.16.8 [id number] Unknown [id number] 2.16.8 [id number] Unknown [id number] 2.16.8 [id number] Unknown [id number] 2.16.8 [id number] Unknown [id number] 2.16.8 [id number] Unknown [id number] 2.16.8 [id number] Unknown [id number] 2.16.8 [id number] Social History Date Type Detail Facility [facility] Work Phone: Start: 12-25-2021 End: 07-19-2023 Tobacco smoking status NHIS Unknown if ever smoked [facility] Start: 1960 Sex Assigned At Female W [facility] Start: 07-19-2023 Tobacco smoking stat us NHIS Never smoked tobacco (finding) [facility] Start: 10-31-2024 Sex Female (finding) [facility] Mental Status Date Assessment Result Facility 10-30-2021 Cognitive function Voice/Name [facility] Work Phone: Radiology Diagnostic study note 01-31-2025 Note Date & Type Note Facility 01-31-2025 Radiology Diagnostic study note [facility] [address] [place], [place] [id number] Bone Length MR#: [id number] Acct: [id number] Name: DARLYN ESCOBAR Rep #: [id number] : 1960 F 64 From: Mirian Hart MD PCP: Dr. Alberto Garrett MD Status: R EG CLI Study:Bone Length Date of Exam: 01/29/25 Exam# [id number] Ordering Dr: Yang Cummings DPM PROCEDURE: BONE [...] ROSEMARIE Cummings; Dr. Alberto Garrett MD ~ Drinking Water Technician: Signed [facility] Radiology Diagnostic study note 01-19-2025 Note Date & Type Note Facility 01-19-2025 Radiology Diagnostic study note [facility] Services [address] [place] [address] Knee 3 Views MR#: [id number] Acct: [id number] Name: DARLYN ESCOBAR Rep #: [id number] : 1960 F 64 From: Yarely Reyes MD PCP: Dr. Alberto Garrett MD Status: R EG CLI Study:Knee 3 Views Date of Exam: 5 Exam# [id number] Ordering Dr: Alcon Garrett MD EXAM: XR Right Knee, 3 Views CLINICAL INDICATION: BILATERAL KNEE PAIN TECHNIQUE: Three views of the right knee. COMPARISON: No relevant prior studies available. FINDINGS: BONES/JOINTS: Mild tricompartmental degenerative changes of the knee joint. Noacute fracture. No dislocation. SOFT TISSUES: Soft tissue swelling. RAD/Knee 3 Views IMPRESSION: Degenerative changes as above. Reading Location: [facility] CC: Dr. Alberto Garrett MD ~ Drinking Water Technician: Signed [facility] Radiology Diagnostic study note 01-19-2025 Note Date & Type Note Facility 01-19-2025 Radiology Diagnostic study note [facility] Imaging Services [address] [place], [place] [address] Knee 3 Views MR#: [id number] Acct: [id number] Name: DARLYN ESCOBAR Rep #: [id number] : 1960 F 64 From: Yarely Reyes MD PCP: Dr. Alberto Garrett MD Status: R EG CLI Study:Knee 3 Views Date of Exam: 5 Exam# [id number] Ordering Dr: Alcon Garrett MD EXAM: XR Left Knee, 3 Views CLINICAL INDICATION: BILATERAL KNEE PAIN TECHNIQUE: Three views of the left knee. COMPARISON: No relevant prior studies available. FINDINGS: BONES/JOINTS: Unremarkable. No acute fracture. No dislocation. SOFT TISSUES: Unremarkable. RAD/Knee 3 Views IMPRESSION: No acute fracture. Reading Location: [facility] CC: Dr. Alberto Garrett MD ~ Drinking Water Technician: Signed [facility] Evaluation note 12-27-2024 Note Date & [...] 7:57am Hyperlipidemia chronic January 19, 2025 7:57am [facility] Work Phone: Evaluation note 07-19-2024 Note Date & Type Note Facility 07-19-2024 Evaluation note Diagnosis Onset Date Resolution Health care maintenance acute D ec2023 9:09am Essential hypertension chronic De cem2023 9:09am Hyperlipidemia chronic July 192023 9:09am [facility] Work Phone: Evaluation note Note Date & Type Note Facility Evaluation note Diagnosis Onset Date Colitis determined by colorectal biopsy acute [facility] Work Phone: Evaluation note Note Date & Type Note Facility Evaluation note Diagnosis Onset Date Colitis determined by colorectal biopsy acute Encounter for routine gyneco logical examination noneactive Colitis determined by colorectal biopsy acute Essential hypertension chron ic [facility] Work Phone: Evaluation note Note Date & Type Note Facility Evaluation note No assessment information availa ble [facility] Work Phone: Evaluation note Note Date & Type Note Facility Evaluation note Diagnosis Onset Date Health care maintenance acut e Essential hypertension chron ic Hyperlipidemia chronic [facility] Work Phone: Reason for referral (narrative) Note Date & Type Note Facility Reason for referral (narrative) No reason for referral information available [facility] Work Phone: Chief Complaint and Reason for Visit Chief Complaint OA SCANNING ONLY DISCUSS COLONOSCOPY RESULTS Annual (TRANSITION MGR RN) Reason for Visit Colitis determined b y colorectal biopsy Chief Complaint DISCUSS COLONOSCOPY RESULTS Annual (TRANSITION MGR RN) 6 M FU Reason for Visit Colitis determined b y colorectal biopsy Encounter for routine gynecological examination Colitis determined by colorectal biopsy Essential hypertension Chief Complaint SCREENING Chief Complaint yearly [facility] Ess[facility] Hyperlipidemia Chief Complaint yearly POSTMENOPAUSAL, SCREENING Reason for Visit [facility] Essential [facility] Hyperlipidemia Chief Complaint [...] BILATERAL KNEES January 19, 2025 8:30a m LUMMI LENGTH DISCREPANCY January 29, 2025 9:21am LUIS [...] Yes October 28, 2021 11:40am Power of Rigger Yes October 28 11:40am Advance Directive Response Recorded Date/ Time Living Will Yes October 28, 2021 10:40am Power of Rigger Yes October 28 10:40am Summary Purpose Additional [...] section and content) DATE CREATED AUTHOR 02/14/2025 [facility] FOR RECORDS PERTAINING TO PATIENTS WHO [...] BE BASED ON THE PRIMARY CLINICAL RECORDS. [employer] [facility]. provides no warranty or guarantee of the accuracy or completeness of information in this document.
--- NOTE | 2025-02-15 13:26 | CA.SCORE ---
Calcium Scoring Date of Study:: 02/15/25 Indications Indications: Family history hyperlipidemia Coronary Calcium Scoring: High-resolution Computed Tomographic imaging of the chest was performed on [02/15/2025], with particular attention paid to the coronary arteries. Images from the examination were analyzed for the presence and extent of coronary artery calcification , using coronary calcium quantification software. The patient tolerated the procedure well and there were no complications. The results of the coronary calcification analysis are provided below. Findings Coronary Artery Left Main (LM): 12.8 Left Anterior Descending (LAD): 172 Left Circumflex (LCX): 55.5 Right Coronary Artery (RCA): 29.5 Total Agatston Score: 269.8 Percentile Rankinth to 90th percentile Calcium Scoring Interpretation: Different methods to categorize the overall amount of coronary plaque. Overall amount CAC SIS Visual of coronary plaque P1 Mild -100 <2 1-2 vessels with mild amount of plaque P2 Moderate 101-300 3-4 1-2 vessels with moderate amount, 3 vessels with mild amount of plaque P3 Severe 301-999 5-7 3 vessels with moderate amount, 1 vessel with severe amount of plaque P4 Extensive >1000 >8 2-3 vessels with severe amount of plaque Calcium Score: Moderate: 1-2 vessels w/moderate amt, 3 vessels w/mild amt of plaque Conclusion: Mild to moderate diffuse atherosclerotic plaque noted
== END | disposition home or self-care (01) ==
PROVIDERS: PCP Internal Medicine; Referring Provider Internal Medicine; Visit Provider Internal Medicine
DX: E78.5 Hyperlipidemia, unspecified (principal); Z13.6 Encounter for screening for cardiovascular disorders; Z82.49 Family history of ischemic heart disease and other diseases of the circulatory system; I25.10 Atherosclerotic heart disease of native coronary artery without angina pectoris
CPT/HCPCS: 75571; 76380

== ENCOUNTER 2025-02-22 07:30 | Outpatient (RCR) | payer MEDICARE, OTHER, SELFPAY ==
--- NOTE | 2025-01-23 08:14 | HP.PTEVAL_ITS ---
Patient's Visit Information Visit Information Visit Information: DARLYN ESCOBAR is a 64 year old F referred to Physical Therapy by Dr. Alberto Garrett MD with a diagnosis of Bilateral Knee Pain. Date of Evaluation: 01/23/25 Physical Therapist: Allie Altman DPT Visit Plan Frequency: 2-3x /Week Duration: 4 Weeks Plan: Focus on LE and core strength/stabilization gym and HEP program. HEP Given IE: Sit to stand, SLS, hamstring stretch, HR/TR Subjective Subjective: She has had bilateral knee pain but the right knee is worse- she walks 1-2 miles daily-the back hurts so bad she couldn't walk really anymore and she wanted to sit down. She could bend but then she could not straighten it out. It was has been happening about 6 months so she went and saw the MD which took x-rays which showed tissue swelling and mild OA. Patient reports that yesterday she started taking an anti-inflammatory (Meloxicam).She took one and is much better. She has no knee pain today. The pain was under the knee cap and below it and when she walks its posterior knee. Last winter she was treated for achilles tendonitis on the right side and she can still feel it in the heel- she did have PT for it and it never went away. She thinks she has a spur. She does not wear an orthotic but she does feel that she has one leg longer than another. Worst: -03/25 She reports feeling that it felt like it was grabbing and then it opened up. Best: heat and ice and the Meloxicam. Was playing Pickleball 3x a week- she rides bike which does not bother the knee. She is doing some stretches but not strength training. Sleep: not disturbed last night but has woken her before. PMHx/Meds: see list in chart. Objective Objective: Posture: forward head, rounded shoulders- can correct with verbal cues Gait: pes planus, valgus at the knees- right>left HR/TR: able with mild LOB with TR able to right herself SLS: Left: 3 sec Right: 5 seconds Sensation: WNL to gross touch bilateral LE Palpation: not tender to touch along joint line ROM: 0-120 with mild crepitus bilateral without pain Strength: Core: fair, Hip: flexion: 4/5, Extn: 4-/5 with cramping left>right, Abd: 4-/5, IR/ER: 4/5, Knee: Extn: Right: 44, 49 Left: 42, 44Flexion: Right 22, 24 Left: 23, 25 Ankle: 5/5 Flex: HS: moderate Gastroc: moderate Balance/Special Test Scores Lower Extremity Functional Score: 55 Goals Goal 1:: Patient will be I with HEP and progression Goal Time Frame: 4-6 Weeks Goal 2:: Patient will SLS for 10 seconds bilateral without LOB Goal Time Frame: 4-6 Weeks Goal 3:: Patient will demo increase of 10# of force in knee strength Goal Time Frame: 4-6 Weeks Goal 4:: Patient will report 80% improvement Goal Time Frame: 4-6 Weeks Rehabilitation Potential Physical Therapy Diagnosis: Patient presents with decreased LE and core strength/stabilization, flex and muscular endurance leading to abnormal gait and increased pain with ADL's. Rehabilitation Potential: Good Anticipated Interventions Patient/Client Instruction: Educate patient on: Benefits of Fitness Program Therapeutic Exercise to Include: Strength training, Endurance training, Balance training, Coordination, Agility training, Body mechanics, Postural training, Flexibilty training, Gait and locomotor training, Neuromotor development, Dynami c Lumbar Stabilization and Scapular Strength/Stabilization For the Purpose of:: To improve muscle performance and motor function TENS: Yes Cryotherapy (ice pack, ice massage): Yes Thermo therapy (hot pack): Yes Ultrasound (thermal/non thermal): Yes Text: Thank you for the opportunity to evaluate your patient. For Medicare and Medicare HMO plans, please review the plan of care and approve it. It will need to be FAXED BACK to us at [phone] for Medicare purposes. For Medicare only, by signing this I certify the plan of care. Please let me know if there are questions or concerns regarding this plan of ca re. Physician Signature: Date:
--- NOTE | 2025-02-22 07:52 | HP.PTDCSUM ---
Discharge Summary D/C summary: It has been my pleasure to treat DARLYN ESCOBAR referred by Dr. Alberto Garrett MD, with the diagnosis of Bilateral Knee Pain for a total of 9 visit(s). Discharge Date: Please see the following information for a summary of their discharge status. Subjective Subjective: Patient reports that she is happy with progress Pain Right Knee: Pain Intensity (Out of 10): 3 Objective Objective/Function: Patient is indep with home exercise program and is appropriate to be d/c at this time. Goals Goal 1:: Patient will be I with HEP and progression Goal Progress: Goal Met Goal 2:: Patient will SLS for 10 seconds bilateral without LOB Goal Progress: Goal Met Goal 3:: Patient will demo increase of 10# of force in knee strength Goal Progress: Goal Met Goal 4:: Patient will report 80% improvement Goal Progress: Goal Met Plan Plan: Discharge to I HEP D/C Information d/c sentence: If there are questions or concerns regarding this patient's physical therapy, please feel free to call me at [phone]. Thank you for the referral of this patient. Sincerely, Allie Altman, JEREMIAHT Balance/Gait/Functional tests Balance/Special Test Scores Lower Extremity Functional Score: 68
== END 2025-02-22 10:43 | disposition home or self-care (01) ==
LOC: PT 07:30
PROVIDERS: PCP Internal Medicine; Referring Provider Internal Medicine; Visit Provider Internal Medicine
DX: M25.561 Pain in right knee (principal); M25.562 Pain in left knee
CPT/HCPCS: 97110; 97162; 97530